=== PATIENT | male | born 1950 | race Caucasian/White ===

== ENCOUNTER → 2016-08-07 | Day surgery (SDC) | payer OTHER ==
[2016-08-06 10:47] VITALS: Ht 188 cm; Wt 97.7 kg
[~2016-08-07] VITALS: Ht 188 cm; Wt 97.7 kg
[~2016-08-07] MED LIST: 500ML BSS 0.3ML EPI 1:1000PF IRRIG ONE; ACETAMINOPHEN 325 MG TAB PO PRN; AMVISC PLUS 0.8ML SYRINGE INT OCU ONE; ATROPINE SULFATE 0.1 MG/ML 5ML SYR IV PRN; BROM0.07 OPR; BSS FLUSH ONE; CYCLOPENTOLATE HCL 1% OP SOLN PER DROP CHARGE OPR SCH; ENDOCOAT 0.85ML SYRINGE INT OCU ONE; EpHEDrine SULFATE INJ 50 MG/ML AMP IV PRN; EpINEphrine INJ 1MG/ML AMP 1 MG/ML AMP ONE; FENTANYL CITRATE INJ 50 MCG/1 ML 2 ML VIAL ONE; IBUP1CAP9 PO; LACTATED RINGER'S 1000ML 500 ML IV SCH; LIDOCAINE 4% OP SOLN DROP CHARGE ONE; LIDOCAINE 4% OP SOLN DROP CHARGE OPR SCH; LIDOCAINE HCL 1% MPF 2 ML VIAL ONE; LIPO PO; MIDAZOLAM HCL 1 MG/ML 2ML VIAL ONE; MIX: 4ML BSS 1ML EPI 1:1000 PF TOP ONE; MOXIFLOXACIN OPH SOLN PER DROP CHARGE ONE; MOXIFLOXACIN OPH SOLN PER DROP CHARGE OPR SCH; PATIENT'S ALLERGY INFO NEEDS ENTERED SCH; PHENYLEPHRINE HCL 2.5% OP SOLN PER DROP CHARGE OPR SCH; POVIDONE-IODINE OP SOLN 30 ML BTL ONE; PRED1SUS OPR; PROPARACAINE 0.5% OP SOLN PER DROP CHARGE OPR SCH; TOBRAMYCIN/DEXAMETHASONE OPH OINT PER APPLN CHARGE ONE; TROPICAMIDE 1% OP SOLN PER DROP CHARGE OPR SCH
[2016-08-07] MEDS: PHENYLEPHRINE HCL 2.5% OP SOLN PER DROP CHARGE OPR SCH ×3 (11:29→11:39)
[2016-08-07] MEDS: TROPICAMIDE 1% OP SOLN PER DROP CHARGE OPR SCH ×3 (11:30→11:40)
[2016-08-07] MEDS: CYCLOPENTOLATE HCL 1% OP SOLN PER DROP CHARGE OPR SCH ×3 (11:31→11:41)
[2016-08-07] MEDS: MOXIFLOXACIN OPH SOLN PER DROP CHARGE OPR SCH ×3 (11:32→11:42)
--- NOTE | 2016-08-07 11:57 | History & Physical Bridge - [place] ---
H&P Re-Evaluation Bridge Note: I have examined the patient, reviewed the History & Physical and in the interval since the performance of the History & Physical I have noted the following changes of clinical significance: No changes noted. Right eye cataract surgery.
--- NOTE | 2016-08-07 13:07 | [facility] Post Operative Brief Note ---
Immediate Operative Summary Operative Date August 07, 2016. Pre-Operative Diagnosis Cataract Right Eye Post-Operative Diagnosis Same Procedure(s) Performed Right Cataract Phacoemulsification With Intraocular Lens Implant Surgeon Dr. Camilo Shrimping Boat Captain Surgeon(s) None Estimated Blood Loss 0 Findings right cataract Specimens None Complication(s) None Disposition
[2016-08-07 13:08] VITALS: TEMP 36.6
--- NOTE | 2016-08-07 13:08 | [facility] Operative Report ---
Operative Report Date of Service August 07, 2016. Operative Report Phaco with monofocal IOL DATE OF OPERATION: 08/07/16 PREOPERATIVE DIAGNOSIS: Senile nuclear cataract, right eye POSTOPERATIVE DIAGNOSIS: Senile nuclear cataract, right eye PROCEDURE PERFORMED: Phacoemulsification with intraocular lens implantation, right eye SURGEON: Dr. Wilder Camilo ANESTHESIA: Topical with 1% intracameral lidocaine and monitored anesthesia care COMPLICATIONS: None DESCRIPTION OF PROCEDURE: After positively identifying the patient both verbally and by wristband in the preoperative area, the right eye was marked as the operative eye. The patient was then brought back to the operating room by the anesthesia and nursing staff where they were given a drop of Lidocaine and betadine into the operative eye. They were then sterilely prepped and draped in the standard fashion typical for ophthalmic surgery. Steri-strips were placed along the upper eyelids to keep the lashes back, and a lid speculum was placed into the operative eye. At this point, a documented time out was performed with members of the ophthalmology, nursing, and anesthesia staffs all agreeing upon the correct patient, correct location for surgery, correct procedure, and correct type and power of intraocular lens to be implanted. The microscope was then swung into position. First, a paracentesis wound was made using a sideport blade. Then, in sequence, 1% preservative-free lidocaine followed by Endocoat viscoelastic was injected into the anterior chamber. Next , the main incision was made with a keratome blade in triplanar fashion. A sharp cystotome was introduced into the eye and used to create a tear in the anterior capsule, which was directed into a continuous curvilinear capsulorrhexis using Utrata forceps. Hydrodissection was then performed with BSS on a flat-tip cannula. Next, the phacoemulsification handpiece was introduced into the eye and used to remove the nucleus in a [id number]-idb-[id number] fashion. This was done without complication and then the irrigation-aspiration handpiece was introduced into the eye and used to remove all remaining cortical and epinuclear material. Amvisc was then injected into the anterior chamber as well as into the capsular bag and using the lens injector system, an MX60 18.0 D lens, serial number [id number], and expiration date 01/2019 was injected into the capsular bag and rotated into the correct position. Next, the irrigation- aspiration handpiece was used to remove all remaining Amvisc. BSS was used to hydrate the main wound, and then BSS was injected into the paracentesis site to reach physiologic pressure and then the main wound was checked and found to be watertight. The patient was given drops of Vigamox and Tobradex ointment into the operative eye, and then the surrounding area was cleaned and dried. A clear plastic shield was placed over the eye and the patient was then sat up and taken from the operating room by the anesthesia staff having tolerated the procedure well and suffering no complications. DISPOSITION: The patient was returned to the recovery room in stable condition. I attest to the content of the Intraoperative Record and any orders documented therein. Any exceptions are noted below.
--- NOTE | 2016-08-07 13:09 | Discharge Instructions-SurgCtr ---
Discharge Instructions Date of Service August 07, 2016. Visit Reason for Visit: Right Cataract Discharge Discharge Diagnosis / Problem: right cataract Discharge Goals Goal(s): Decrease discomfort, Improve function Activity Recommendations Activity Limitations: as noted below Anesthesia . Post Anesthesia Instructions: If you have had General Anesthesia or IV Sedation: * Do not drive today. * Resume driving when surgeon permits. * Do not make important decisions or sign legal documents today. * Call surgeon for: 1. Temperature elevations greater than 101 degrees F. 2. Uncontrollable pain. 3. Excessive bleeding. 4. Persistent nausea and vomiting. 5. Medication intolerance (nausea, vomiting or rash). * For nausea and vomiting use only clear liquids such as: tea, soda, bouillon until nausea subsides, then gradually increase diet as tolerated. * If you have any concerns or questions, call your surgeon's office. If physician is unavailable and it is an emergency, call 911 or go to the nearest emergency room. . Instructions / Follow-Up Instructions / Follow-Up ACTIVITY RECOMMENDATIONS: * Light activities. * You may walk outside, read, watch television. * You may notice redness on the white part of the eye and some blurry vision - this is normal. MEDICATIONS: Resume previous medications unless instructed otherwise by your surgeon. Start all eye drops at 3 pm today: * Eye drops (today): Prednisone - one drop in operative eye every 2 hours while awake Ofloxacin - one drop in operative eye every 2 hours while awake Bromfenac - one drop in operative eye daily SPECIAL CARE INSTRUCTIONS: * Tape plastic shield over eye to sleep at night. Call your doctor at with any concerns or problems. FOLLOW UP VISIT: Follow-up with Dr Camilo at [place] office as scheduled. Diet Recommendations Home Diet: no limitations Procedures Procedures Performed: Right Cataract Phacoemulsification With Intraocular Lens Implant Pending Studies Studies pending at discharge: no Medical Emergencies . Who to Call and When: Medical Emergencies: If at any time you feel your situation is an emergency, please call 911 immediately. . Non-Emergent Contact Non-Emergency issues call your: Surgeon . . "Provider Documentation" section prepared by Wilder Camilo. .
[2016-08-07 13:35] VITALS: BP 138/81; PULSE 85; O2SAT 96
--- NOTE | 2016-08-07 13:44 | Anesthesia Progress Nt - [facility] ---
Anesthesia Post Op Note Date & Time August 07, 2016 at 13:44 Vital Signs Pain Intensity: 0 Vital Signs Past 12 Hours Date Time Temp Pulse Resp B/P Pulse Ox O2 Delivery O2 Flow Rate FiO2 08/07/16 13:08 36.6 78 16 143/94 97 Room Air 08/07/16 11:22 36.7 92 16 140/91 96 Room Air Notes Mental Status: alert / awake / arousable, participated in evaluation Pt Amnestic to Procedure: Yes Nausea / Vomiting: adequately controlled Pain: adequately controlled Airway Patency, RR, SpO2: stable & adequate BP & HR: stable & adequate Hydration State: stable & adequate Anesthetic Complications: no major complications apparent
== END | disposition home or self-care (01) ==
LOC: X.SURG 11:06
PROVIDERS: ATTEND Ophthalmology
DX: H25.11 Age-related nuclear cataract, right eye (principal)

== ENCOUNTER → 2016-09-04 | Day surgery (SDC) | payer OTHER ==
[2016-08-15 12:41] VITALS: Ht 188 cm; Wt 97.7 kg
[~2016-09-04] VITALS: Ht 188 cm; Wt 97.7 kg
[~2016-09-04] MED LIST changes: -CYCLOPENTOLATE HCL 1% OP SOLN PER DROP CHARGE OPR SCH; -FENTANYL CITRATE INJ 50 MCG/1 ML 2 ML VIAL ONE; +LIDOCAINE 4% OP SOLN DROP CHARGE OPL SCH; -LIDOCAINE 4% OP SOLN DROP CHARGE OPR SCH; -MOXIFLOXACIN OPH SOLN PER DROP CHARGE OPR SCH; +ONDANSETRON INJ 2 MG/ML 2 ML VIAL IV PRN; -PATIENT'S ALLERGY INFO NEEDS ENTERED SCH; -PHENYLEPHRINE HCL 2.5% OP SOLN PER DROP CHARGE OPR SCH; +PROPARACAINE 0.5% OP SOLN PER DROP CHARGE OPL SCH; -PROPARACAINE 0.5% OP SOLN PER DROP CHARGE OPR SCH; -TROPICAMIDE 1% OP SOLN PER DROP CHARGE OPR SCH
[2016-09-04] MEDS: PHENYLEPHRINE HCL 2.5% OP SOLN PER DROP CHARGE OPL SCH ×3 (07:25→07:35)
[2016-09-04] MEDS: TROPICAMIDE 1% OP SOLN PER DROP CHARGE OPL SCH ×3 (07:26→07:36)
[2016-09-04] MEDS: CYCLOPENTOLATE HCL 1% OP SOLN PER DROP CHARGE OPL SCH ×3 (07:27→07:37)
--- NOTE | 2016-09-04 07:27 | History & Physical Bridge - [place] ---
H&P Re-Evaluation Bridge Note: I have examined the patient, reviewed the History & Physical and in the interval since the performance of the History & Physical I have noted the following changes of clinical significance: No changes noted. Left eye cataract surgery.
[2016-09-04] MEDS: MOXIFLOXACIN OPH SOLN PER DROP CHARGE OPL SCH ×3 (07:28→07:38)
--- NOTE | 2016-09-04 08:37 | [facility] Post Operative Brief Note ---
Immediate Operative Summary Operative Date Sep 04, 2016. Pre-Operative Diagnosis catarct left eye Post-Operative Diagnosis same Procedure(s) Performed left cataract phacoemulsification with intraocular lens implant Surgeon Dr. Camilo Acid Concentrator Surgeon(s) none Estimated Blood Loss 0 Findings left cataract Specimens none Complication(s) None Disposition
[2016-09-04 08:38] VITALS: TEMP 36.4
--- NOTE | 2016-09-04 08:38 | [facility] Operative Report ---
Operative Report Date of Service Sep 04, 2016. Operative Report Phaco with monofocal IOL DATE OF OPERATION: 09/04/16 PREOPERATIVE DIAGNOSIS: Senile nuclear cataract, left eye POSTOPERATIVE DIAGNOSIS: Senile nuclear cataract, left eye PROCEDURE PERFORMED: Phacoemulsification with intraocular lens implantation, left eye SURGEON: Dr. Wilder Camilo ANESTHESIA: Topical with 1% intracameral lidocaine and monitored anesthesia care COMPLICATIONS: None DESCRIPTION OF PROCEDURE: After positively identifying the patient both verbally and by wristband in the preoperative area, the left eye was marked as the operative eye. The patient was then brought back to the operating room by the anesthesia and nursing staff where they were given a drop of Lidocaine and betadine into the operative eye. They were then sterilely prepped and draped in the standard fashion typical for ophthalmic surgery. Steri-strips were placed along the upper eyelids to keep the lashes back, and a lid speculum was placed into the operative eye. At this point, a documented time out was performed with members of the ophthalmology, nursing, and anesthesia staffs all agreeing upon the correct patient, correct location for surgery, correct procedure, and correct type and power of intraocular lens to be implanted. The microscope was then swung into position. First, a paracentesis wound was made using a sideport blade. Then, in sequence, 1% preservative-free lidocaine followed by Endocoat viscoelastic was injected into the anterior chamber. Next , the main incision was made with a keratome blade in triplanar fashion. A sharp cystotome was introduced into the eye and used to create a tear in the anterior capsule, which was directed into a continuous curvilinear capsulorrhexis using Utrata forceps. Hydrodissection was then performed with BSS on a flat-tip cannula. Next, the phacoemulsification handpiece was introduced into the eye and used to remove the nucleus in a [id number]-arc-rhbz fashion. This was done without complication and then the irrigation-aspiration handpiece was introduced into the eye and used to remove all remaining cortical and epinuclear material. Amvisc was then injected into the anterior chamber as well as into the capsular bag and using the lens injector system, an MX60 18.0 D lens, serial number [id number], and expiration date 02/2019 was injected into the capsular bag and rotated into the correct position. Next, the irrigation- aspiration handpiece was used to remove all remaining Amvisc. BSS was used to hydrate the main wound, and then BSS was injected into the paracentesis site to reach physiologic pressure and then the main wound was checked and found to be watertight. The patient was given drops of Vigamox and Tobradex ointment into the operative eye, and then the surrounding area was cleaned and dried. A clear plastic shield was placed over the eye and the patient was then sat up and taken from the operating room by the anesthesia staff having tolerated the procedure well and suffering no complications. DISPOSITION: The patient was returned to the recovery room in stable condition. I attest to the content of the Intraoperative Record and any orders documented therein. Any exceptions are noted below.
--- NOTE | 2016-09-04 08:39 | Discharge Instructions-SurgCtr ---
Discharge Instructions Date of Service Sep 04, 2016. Visit Reason for Visit: Cataract Left Eye Discharge Discharge Diagnosis / Problem: left cataract Discharge Goals Goal(s): Decrease discomfort, Improve function Activity Recommendations Activity Limitations: as noted below Anesthesia . Post Anesthesia Instructions: If you have had General Anesthesia or IV Sedation: * Do not drive today. * Resume driving when surgeon permits. * Do not make important decisions or sign legal documents today. * Call surgeon for: 1. Temperature elevations greater than 101 degrees F. 2. Uncontrollable pain. 3. Excessive bleeding. 4. Persistent nausea and vomiting. 5. Medication intolerance (nausea, vomiting or rash). * For nausea and vomiting use only clear liquids such as: tea, soda, bouillon until nausea subsides, then gradually increase diet as tolerated. * If you have any concerns or questions, call your surgeon's office. If physician is unavailable and it is an emergency, call 911 or go to the nearest emergency room. . Instructions / Follow-Up Instructions / Follow-Up ACTIVITY RECOMMENDATIONS: * Light activities. * You may walk outside, read, watch television. * You may notice redness on the white part of the eye and some blurry vision - this is normal. MEDICATIONS: Resume previous medications unless instructed otherwise by your surgeon. Start all eye drops at 10:30 am today: * Eye drops (today): Prednisone - one drop in operative eye every 2 hours while awake Ofloxacin - one drop in operative eye every 2 hours while awake Bromfenac - one drop in operative eye daily SPECIAL CARE INSTRUCTIONS: * Tape plastic shield over eye to sleep at night. Call your doctor at with any concerns or problems. FOLLOW UP VISIT: Follow-up with Dr Camilo at [facility] as scheduled. Diet Recommendations Home Diet: no limitations Procedures Procedures Performed: left cataract phacoemulsification with intraocular lens implant Pending Studies Studies pending at discharge: no Medical Emergencies . Who to Call and When: Medical Emergencies: If at any time you feel your situation is an emergency, please call 911 immediately. . Non-Emergent Contact Non-Emergency issues call your: Surgeon . . "Provider Documentation" section prepared by Wilder Camilo. .
--- NOTE | 2016-09-04 08:55 | Anesthesia Progress Nt - [facility] ---
Anesthesia Post Op Note Date & Time Sep 04, 2016 at 08:55 Vital Signs Pain Intensity: 0 Vital Signs Past 12 Hours Date Time Temp Pulse Resp B/P (MAP) Pulse Ox O2 Delivery O2 Flow Rate FiO2 09/04/16 08:38 36.4 77 16 107/73 (84) 95 Room Air 09/04/16 07:11 36.7 94 16 125/84 (98) 97 Room Air Notes Mental Status: alert / awake / arousable, participated in evaluation Pt Amnestic to Procedure: Yes Nausea / Vomiting: adequately controlled Pain: adequately controlled Airway Patency, RR, SpO2: stable & adequate BP & HR: stable & adequate Hydration State: stable & adequate Anesthetic Complications: no major complications apparent
[2016-09-04 08:59] VITALS: BP 111/75; PULSE 78; O2SAT 96
== END | disposition home or self-care (01) ==
LOC: X.SURG 06:53
PROVIDERS: ATTEND Ophthalmology
DX: H25.12 Age-related nuclear cataract, left eye (principal); K21.9 Gastro-esophageal reflux disease without esophagitis; G47.33 Obstructive sleep apnea (adult) (pediatric); Z68.27 Body mass index [BMI] 27.0-27.9, adult; Z98.42 Cataract extraction status, left eye; Z98.890 Other specified postprocedural states

== ENCOUNTER 2021-04-19 14:29 | Observation (INO) ==
--- NOTE | 2021-04-19 14:54 | Emergency Department Note ---
History of Present Illness General Chief complaint: Vomiting Stated complaint: DIZZINESS, NAUSEA, VOMITING Time Seen by Provider: 04/19/21 14:51 History of Present Illness This is a 70-year-old male that presents to the emergency department via EMS with complaints of "nausea, vomiting, dizziness". The patient notes that while at work he was not feeling well. He presented to "[facility]" and then EMS were summoned and he was brought here. He vomited 4 times at the [facility] and then once in the ambulance. Patient notes dizziness before the vomiting. No recent trauma or injury. No chest pain or shortness of breath. No recent illness. No fevers or chills. Patient denies any blood in the emesis. No alleviating or exacerbating factors. No recent surgeries. No recent antibiotic use. Patient has had this happen before but is unsure of the cause. Patient denies any speech trouble or weakness. Home Medications Medication Instructions Recorded Confirmed Type metformin 1,000 mg tablet 1,000 mg PO BID #60 tab 08/02/20 04/19/21 Rx multivitamin 1 tab PO QAM 12/28/20 04/19/21 History aspirin-acetaminophen (buffered) 1 tab PO DIRECTED PRN 04/19/21 04/19/21 History 250 mg-250 mg tablet Allergies Allergy/AdvReac Type Severity Reaction Status Date / Time No Known Allergies Allergy Unverified 04/19/21 17:06 Past Med/Surg History Medical History DM type 2 (diabetes mellitus, type 2) History of sleep apnea resolved after wt loss Slow to wake up after anesthesia Surgical History History of biopsy skin History of cataract surgery History of tooth extraction S/P correction of deviated nasal septum Social History Smoking Status: Never smoker Second Hand Exposure: Yes; Do You Dip or Chew Tobacco: No; Hx Alcohol Use: No Hx Substance Use: No Preferred Language: Greek Communication Ability: Effective Charging Plug 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 Required: No Beliefs That Will Affect Care: None Current Living Situation: Spouse Other Information That Helps Us Care for You: Yes Feels Safe at Home: Yes Safety Concerns: Feels Safe At This Time Assistive Devices: Denture - Upper and Glasses Review of Systems A total of 10 systems reviewed and were otherwise negative Physical Exam Vital Signs Vital Signs - 24 hr 04/19/21 14:33 04/19/21 14:36 04/19/21 15:00 Temperature 36.7 C Temperature Source Oral Pulse Rate 83 Pulse Rate [Apical] 83 Respiratory Rate 22 18 Respiratory Effort / Characteristics Non-Labored Spontaneous Non-Labored Spontaneous Respiratory Depth Normal Normal Blood Pressure 154/93 H Blood Pressure [Right Arm] 154/93 H Blood Pressure Mean 113 Blood Pressure Mean [Right Arm] 113 Pulse Oximetry 100 98 Oxygen Delivery Method Room Air Room Air Room Air Sepsis Recent Fever Within 48 Hours No Sepsis New/Unexplained Change in Mental Status No Sepsis Action Taken by Nursing No Action Required 04/19/21 16:30 04/19/21 17:00 Temperature Temperature Source Pulse Rate Pulse Rate [Apical] 76 86 Respiratory Rate 13 19 Respiratory Effort / Characteristics Non-Labored Spontaneous Non-Labored Spontaneous Respiratory Depth Normal Normal Blood Pressure Blood Pressure [Right Arm] 147/83 H 148/80 H Blood Pressure Mean Blood Pressure Mean [Right Arm] 104 102 Pulse Oximetry 99 100 Oxygen Delivery Method Room Air Room Air Sepsis Recent Fever Within 48 Hours Sepsis New/Unexplained Change in Mental Status Sepsis Action Taken by Nursing VITAL SIGNS - Vital signs and nursing notes were reviewed. Stable and afebrile. GENERAL - 70-year-old male appearing his stated age who is in no acute distress. Communicates well with provider and answers questions appropriately. SKIN - Without rashes. No meningeal or petechial rash. HEAD - NC/AT. EYES - PERRL with EOMI bilaterally. Sclera anicteric. EARS - No deformities of external structures noted on gross examination bilaterally. No pain elicited with palpation of the tragus bilaterally. External auditory canals without discharge or otorrhea. Tympanic membranes pearly mccarty without retraction or bulging. No fluid or purulent material visualized behind the TM. Handle of malleus, umbo, cone of light, pars tensa/flaccid all easily visualized. NOSE - Midline and without cyanosis. No epistaxis or purulent drainage noted. Septum midline without deviation or septal hematoma noted. MOUTH/OROPHARYNX - Without perioral cyanosis. Buccal mucosa pink and moist and without leukoplakia. Tongue midline with equal elevation of palate bilaterally. No tonsillar hypertrophy, erythema, or exudates noted. Good dentition noted. NECK - Neck with FROM. No nuchal rigidity. LUNGS - Chest wall symmetric without accessory muscle use, intercostals retractions, or central cyanosis. Normal vesicular breath sounds CTA B/L. No wheezes, rales, or rhonchi appreciated. CARDIAC - RRR with S1/S2. No murmur, rubs, or gallops appreciated. ABDOMEN - Abdominal contour normal without pulsations or visible masses. BS normoactive all four quadrants. No tenderness, palpable masses, hepatosplenom egaly, or ascites noted. EXTREMITIES - No clubbing or peripheral cyanosis. +5/5 strength noted in UE/LE bilaterally. NEUROLOGIC - Cranial nerves II through XII grossly intact. PSYCH - A&Ox3 and cooperates fully with examiner. Pt is very pleasant and interacts well with examiner. Course Administered Medications Sodium Chloride (Nss 1000ml) 1,000 mls @ 100 mls/hr IV .Q10H [id number] Stop: 05/19/21 20:31 Last Admin: 04/19/21 21:06 Dose: 100 mls/hr Documented by: [id number] Ondansetron HCl (Ondansetron Inj 2 Mg/Ml 2 Ml Vial) 4 mg IV Q6H PRN PRN Reason: Nausea Stop: 05/19/21 20:31 Last Admin: 04/19/21 21:08 Dose: 4 mg Documented by: [id number] Discontinued Medications Diazepam (Diazepam 5 Mg/Ml Inj 10ml Vial) 5 mg IV NOW STA Stop: 04/19/21 18:34 Last Admin: 04/19/21 19:04 Dose: 5 mg Documented by: [id number] Sodium Chloride (Nss 1000ml) 1,000 mls @ 500 mls/hr IV .Q2H ONE Stop: 04/19/21 17:12 Last Infusion: 04/19/21 19:41 Dose: 0 mls/hr Documented by: [id number] Admin: 04/19/21 15:31 Dose: 500 mls/hr Documented by: [id number] Lorazepam (Ativan) 1 mg in 2 mls @ 2 mls/min IV NOW STA Stop: 04/19/21 16:46 Last Admin: 04/19/21 17:19 Dose: 2 mls/min Documented by: [id number] Promethazine HCl 12.5 mg/ (Sodium Chloride) 50.5 mls @ 202 mls/hr IV NOW STA Stop: 04/19/21 18:17 Last Admin: 04/19/21 19:04 Dose: Not Given Documented by: [id number] Pantoprazole Sodium 40 mg/ (Syringe) 10 mls @ 5 mls/min IV NOW ONE Stop: 04/19/21 18:04 Last Admin: 04/19/21 19:43 Dose: 5 mls/min Documented by: [id number] Famotidine (Pepcid 20mg Iv Push) 20 mg in 5 mls @ 2.5 mls/min IV NOW STA Stop: 04/19/21 18:04 Last Admin: 04/19/21 18:58 Dose: 2.5 mls/min Documented by: [id number] Sodium Chloride (Nss 1000ml) 500 mls @ 999 mls/hr IV .Q31M ONE Stop: 04/19/21 18:39 Last Infusion: 04/19/21 19:41 Dose: 0 mls/hr Documented by: [id number] Admin: 04/19/21 19:02 Dose: 999 mls/hr Documented by: [id number] Ioversol (Optiray 320 125ml) 104 ml IV ONCE ONE Stop: 04/19/21 16:01 Last Admin: 04/19/21 16:01 Dose: 104 ml Documented by: [id number] Methylprednisolone (Methylprednisolone 40 Mg/Ml Vial) 40 mg IV NOW STA Stop: 04/19/21 16:46 Last Admin: 04/19/21 17:19 Dose: 40 mg Documented by: [id number] Ondansetron HCl (Ondansetron Inj 2 Mg/Ml 2 Ml Vial) 4 mg IV NOW STA Stop: 04/19/21 15:14 Last Admin: 04/19/21 15:31 Dose: 4 mg Documented by: [id number] Ondansetron HCl (Ondansetron Inj 2 Mg/Ml 2 Ml Vial) 4 mg IV NOW STA Stop: 04/19/21 18:06 Last Admin: 04/19/21 19:02 Dose: 4 mg Documented by: [id number] Medical Decision Making Laboratory Data Result diagrams: 04/19/21 14:44 04/19/21 14:44 Lab Results 04/19/21 04/19/21 04/19/21 Range/Units 14:44 14:44 14:44 WBC 7.56 (4.8-10.8) K/uL RBC 4.65 L (4.7-6.1) M/uL Hgb 13.6 L (14.0-18.0) g/dL Hct 39.6 L (42-52) % MCV 85.2 (80-100) fL MCH 29.2 (25-34) pg MCHC 34.3 (32-36) g/dL RDW Std Deviation 39.0 (36.4-46.3) fL RDW Coeff of Yareli 12.6 (11.5-14.5) % Plt Count 262 (130-400) K/uL MPV 9.6 (7.4-10.4) fL Immature Gran % (Auto) 0.1 % Neut % (Auto) 75.8 % Lymph % (Auto) 12.8 % Terrell % (Auto) 9.1 % Eos % (Auto) 1.5 % Baso % (Auto) 0.7 % Neut # (Auto) 5.73 (1.4-6.5) K/uL Lymph # (Auto) 0.97 L (1.2-3.4) K/uL Terrell # (Auto) 0.69 H (0.11-0.59) K/uL Eos # (Auto) 0.11 (0-0.5) K/uL Baso # (Auto) 0.05 (0-0.2) K/uL Immature Gran # (Auto) 0.01 (0.00-0.02) K/uL PT 9.8 (9.0-12.0) Seconds INR 1.0 (0.9-1.1) APTT 26.5 (21.0-31.0) Seconds PTT Ratio 1.0 Sodium 138 (136-145) mmol/L Potassium 3.9 (3.5-5.1) mmol/L Chloride 103 (98-107) mmol/L Carbon Dioxide 25 (21-32) mmol/L Anion Gap 10 (3-11) BUN 21 (6-23) mg/dl Creatinine 0.99 (0.6-1.4) mg/dl Est Cr Clr Drug Dosing 78.4 ml/min Est GFR ( Amer) 90.3 ml/min Est GFR (Non-Af Amer) 77.9 ml/min BUN/Creatinine Ratio 21.2 H (10-20) Glucose 170 H (70-99(Fasting)) mg/dl Calcium 9.8 (8.5-10.1) mg/dl Magnesium 1.9 (1.7-2.4) mg/dl Total Bilirubin 0.5 (0.2-1.0) mg/dl AST 13 (13-39) U/L ALT 11 (7-52) U/L Alkaline Phosphatase 80 (34-104) U/L Troponin I < 0.03 (0-0.04) ng/ml Total Protein 7.7 (6.0-8.3) gm/dl Albumin 4.3 (3.4-5.0) gm/dl Globulin 3.4 (2.5-4.0) gm/dl Albumin/Globulin Ratio 1.3 (0.9-2) Lipase 34 (11-82) U/L TSH (0.300-4.500) uIu/ml Urine Color Urine Appearance (Clear) Urine pH (4.5-7.5) Ur Specific Semin[place] (1.000-1.030) Urine Protein (Negative) Urine Glucose (UA) (Negative) Urine Ketones (Negative) Urine Blood (Negative) Urine Nitrite (Negative) Urine Bilirubin (Negative) Urine Urobilinogen (Negative) Ur Leukocyte Esterase (Negative) SARS-CoV-2, RNA, NAAT (NEGATIVE) 04/19/21 04/19/21 04/19/21 Range/Units 14:44 15:43 15:43 WBC (4.8-10.8) K/uL RBC (4.7-6.1) M/uL Hgb (14.0-18.0) g/dL Hct (42-52) % MCV (80-100) fL MCH (25-34) pg MCHC (32-36) g/dL RDW Std Deviation (36.4-46.3) fL RDW Coeff of Yareli (11.5-14.5) % Plt Count (130-400) K/uL MPV (7.4-10.4) fL Immature Gran % (Auto) % Neut % (Auto) % Lymph % (Auto) % Terrell % (Auto) % Eos % (Auto) % Baso % (Auto) % Neut # (Auto) (1.4-6.5) K/uL Lymph # (Auto) (1.2-3.4) K/uL Terrell # (Auto) (0.11-0.59) K/uL Eos # (Auto) (0-0.5) K/uL Baso # (Auto) (0-0.2) K/uL Immature Gran # (Auto) (0.00-0.02) K/uL PT (9.0-12.0) Seconds INR (0.9-1.1) APTT (21.0-31.0) Seconds PTT Ratio Sodium (136-145) mmol/L Potassium (3.5-5.1) mmol/L Chloride (98-107) mmol/L Carbon Dioxide (21-32) mmol/L Anion Gap (3-11) BUN (6-23) mg/dl Creatinine (0.6-1.4) mg/dl Est Cr Clr Drug Dosing ml/min Est GFR ( Amer) ml/min Est GFR (Non-Af Amer) ml/min BUN/Creatinine Ratio (10-20) Glucose (70-99(Fasting)) mg/dl Calcium (8.5-10.1) mg/dl Magnesium (1.7-2.4) mg/dl Total Bilirubin (0.2-1.0) mg/dl AST (13-39) U/L ALT (7-52) U/L Alkaline Phosphatase (34-104) U/L Troponin I (0-0.04) ng/ml Total Protein (6.0-8.3) gm/dl Albumin (3.4-5.0) gm/dl Globulin (2.5-4.0) gm/dl Albumin/Globulin Ratio (0.9-2) Lipase (11-82) U/L TSH 0.635 (0.300-4.500) uIu/ml Urine Color Dark Yellow Urine Appearance Clear (Clear) Urine pH 7.0 (4.5-7.5) Ur Specific [place] 1.026 (1.000-1.030) Urine Protein Negative (Negative) Urine Glucose (UA) Trace H (Negative) Urine Ketones 1+ H (Negative) Urine Blood Negative (Negative) Urine Nitrite Negative (Negative) Urine Bilirubin Negative (Negative) Urine Urobilinogen Negative (Negative) Ur Leukocyte Esterase Negative (Negative) SARS-CoV-2, RNA, NAAT NEGATIVE (NEGATIVE) Imaging Data Radiologist's Impression: Head CTA 04/19/21 15:05 CT angio neck with con, CT angio head wo/w CLINICAL HISTORY: 70 years-old Male with dizziness, nausea, emesis. Acute dizziness with nausea COMPARISON STUDY: None TECHNIQUE: Following the IV administration of 104 of Optiray, CT angiogram of the head and neck was performed from the aortic arch to the skull base. Noncontrast head CT also obtained. Images are reviewed in the axial, sagittal, and coronal planes. 3-D MIPS images are created and assessed. IV contrast was administered without complication. All measurements were calculated based on NASCET criteria. A dose lowering technique was utilized adhering to the principles of ALARA. CT DOSE: 1193.46 mGy.cm FINDINGS: CT HEAD: No acute intracranial hemorrhage, midline shift, abnormal extra axial collection, hydrocephalus or intracranial mass. Minimal involutional changes. Hypodense foci of the inferior lateral nuclei bilaterally measuring up to 11 mm in left are suggestive of prominent perivascular spaces versus chronic lacunar infarct. There is ill-defined decreased attenuation of the left external capsule is seen on image 15 series 2. The mccarty-white interface appears preserved. Slightly decreased attenuation of the right kylie is favored to be artifactual. No acute calvarial fracture. The mastoid air cells and middle ear cavities are clear. Mild mucosal thickening of the ethmoid sinuses. Soft tissues are unremarkable. Prior bilateral lens repair. CTA: Mild atherosclerosis of the thoracic aortic arch. Patency of the innominate and imaged subclavian arteries. Mild calcified plaque of the right carotid bulb without sniffing stenosis. The common and internal carotid arteries are patent. The middle and anterior cerebral arteries are patent. Codominant and patent vertebral arteries. The basilar and posterior cerebral arteries are patent. There is no aneurysm, dissection, high-grade stenosis or arterial occlusion identified. The cerebral venous sinuses appear patent. No abnormal intracranial enhancement. The lung apices are clear without pneumothorax. Partially calcified 1.1 cm left thyroid nodule. Unremarkable soft tissues. Degenerative changes of the spine. IMPRESSION: 1. No acute intracranial hemorrhage, midline shift or acute territorial infarct. 2. Ill-defined decreased attenuation involves the left external capsule which may be secondary to chronic microvascular ischemic disease. An age-indeterminate infarct within this distribution is considered less likely. 3. Unremarkable CTA of the head and neck. ACT 112: Negative or not required by law. The above report was generated using voice recognition software. It may contain grammatical, syntax or spelling errors. Electronically signed by: Todd Estrella M.D. 04/19/2021 4:22 PM Neck CTA 04/19/21 15:05 CT angio neck with con, CT angio head wo/w CLINICAL HISTORY: 70 years-old Male with dizziness, nausea, emesis. Acute dizziness with nausea COMPARISON STUDY: None TECHNIQUE: Following the IV administration of 104 of Optiray, CT angiogram of the head and neck was performed from the aortic arch to the skull base. Noncontrast head CT also obtained. Images are reviewed in the axial, sagittal, and coronal planes. 3-D MIPS images are created and assessed. IV contrast was administered without complication. All measurements were calculated based on NASCET criteria. A dose lowering technique was utilized adhering to the principles of ALARA. CT DOSE: 1193.46 mGy.cm FINDINGS: CT HEAD: No acute intracranial hemorrhage, midline shift, abnormal extra axial collection, hydrocephalus or intracranial mass. Minimal involutional changes. Hypodense foci of the inferior lateral nuclei bilaterally measuring up to 11 mm in left are suggestive of prominent perivascular spaces versus chronic lacunar infarct. There is ill-defined decreased attenuation of the left external capsule is seen on image 15 series 2. The mccarty-white interface appears preserved. Slightly decreased attenuation of the right kylie is favored to be artifactual. No acute calvarial fracture. The mastoid air cells and middle ear cavities are clear. Mild mucosal thickening of the ethmoid sinuses. Soft tissues are unremarkable. Prior bilateral lens repair. CTA: Mild atherosclerosis of the thoracic aortic arch. Patency of the innominate and imaged subclavian arteries. Mild calcified plaque of the right carotid bulb without sniffing stenosis. The common and internal carotid arteries are patent. The middle and anterior cerebral arteries are patent. Codominant and patent vertebral arteries. The basilar and posterior cerebral arteries are patent. There is no aneurysm, dissection, high-grade stenosis or arterial occlusion identified. The cerebral venous sinuses appear patent. No abnormal intracranial enhancement. The lung apices are clear without pneumothorax. Partially calcified 1.1 cm left thyroid nodule. Unremarkable soft tissues. Degenerative changes of the spine. IMPRESSION: 1. No acute intracranial hemorrhage, midline shift or acute territorial infarct. 2. Ill-defined decreased attenuation involves the left external capsule which may be secondary to chronic microvascular ischemic disease. An age-indeterminate infarct within this distribution is considered less likely. 3. Unremarkable CTA of the head and neck. ACT 112: Negative or not required by law. The above report was generated using voice recognition software. It may contain grammatical, syntax or spelling errors. Electronically signed by: Todd Estrella M.D. 04/19/2021 4:22 PM Chest X-Ray 04/19/21 15:14 SINGLE VIEW CHEST CLINICAL HISTORY: Dizziness. Nausea FINDINGS: An AP, portable, upright chest radiograph is compared to study dated 07/13/2019. The cardiomediastinal silhouette is unremarkable. There is bibasilar scarring/atelectasis. The lungs and pleural spaces are otherwise clear. No pneumothorax is seen. The bony thorax is grossly intact. IMPRESSION: No acute cardiopulmonary abnormality. ACT 112: Negative or not required by law. Electronically signed by: Raoul Andrade M.D. 04/19/2021 3:25 PM MDM Narrative Patient was seen and evaluated as above in room C03. Review was performed of nursing notes and vital signs. I did review pertinent previous visits and patient history. After obtaining a thorough history and physical examination the above work up was performed. Patient presents to us today with nausea, vomiting and dizziness. Patient vomited in route to the hospital here today. He is nontoxic on examination. Vital signs stable. Options of care were discussed with the patient. IV access was established. Labs were drawn. Patient was medicated with IV fluids and IV Zofran. No relief with this. He was then ordered IV Ativan, and IV site Medrol. He was reevaluated without any relief of this. Patient's vertiginous symptoms appear to be positional in regard to his head. He does not have any abdominal pain. He has a benign abdominal exam. He has had CT scans of the abdomen here previously. Chest x-ray was obtained here as well CTA head/neck. Chest x-ray negative. CTA of the head/neck did not reveal any acute intracranial hemorrhage midline shift or acute infarct. There is an ill-defined region involving the left external capsule which may be secondary to chronic microvascular ischemic disease. An age-indeterminate infarct within this distribution is considered less likely. With the patient having persistent vertigo, nausea I do believe that further evaluation and management the inpatient setting is warranted. Patient's labs here reveal no leukocytosis or concerning anemia. Mild anemia noted at 13.6 in regard to hemoglobin. No emergent metabolic disturbance. Hyperglycemia 170. Troponin negative. TSH reveals euthyroid state. Lipase normal. Urinalysis does not suggest infection. Covid testing negative. EKG was obtained and reveals normal sinus rhythm at a rate of 80 bpm. QTc 456. QRS 88. No ST elevation. Case discussed with the hospitalist. Patient amenable to plan of care. Please refer to further documentation regarding his stay. Case was discussed with the attending physician. An order was placed for continuous cardiac monitoring. The monitor shows a rate of 79 with sinus rhythm. GCS: 15 In the evaluation and treatment of this patient, the following differential diagnoses were considered: Migraine Headache, Intracranial Hemorrhage, Subdural Hematoma, Subarachnoid Hemorrhage, Cerebral Aneurysm, Temporal/Giant Cell Arteritis, Tension Headache, Meningitis, Encephalitis, hydrocephalus, CVA, TIA, vertigo, among others. Impression & Plan Nausea and vomiting, Vertigo, Abnormal CT scan, head Discharge Plan Visit Data Chief Complaint: Vomiting Stated Complaint: DIZZINESS, NAUSEA, VOMITING ED Provider: Lyla Hendrickson ED Midlevel Provider: Steve Goodrich Discharge Problem: Nausea and vomiting, Vertigo, Abnormal CT scan, head Patient Disposition: Admitted As Inpatient Condition: Good Discharge Instructions Interventions: ED Discharge Assessment Last Done: 04/19/21 20:11
[2021-04-19] MEDS ORDERED: SODIUM CHLORIDE 0.9% 1000ML 1,000 ML IV ONE (15:13)
[2021-04-19] MEDS ORDERED: ONDANSETRON INJ 2 MG/ML 2 ML VIAL IV STA ×2 (15:13→18:05)
[2021-04-19 15:20] LABS: Basophils # (auto) 0.05 K/uL (0-0.2); Basophils % (auto) 0.7 %; Eosinophils # (auto) 0.11 K/uL (0-0.5); Eosinophils % (auto) 1.5 %; Hematocrit (blood only) 39.6 % (42-52); Hemoglobin 13.6 g/dL (14.0-18.0); Immature Granulocytes # (auto) 0.01 K/uL (0.00-0.02); Immature Granulocytes % (auto) 0.1 %; Lymphocytes # (auto) 0.97 K/uL (1.2-3.4); Lymphocytes % (auto) 12.8 %; Mean Corpuscular Hemoglobin 29.2 pg (25-34); Mean Corpuscular Hgb Conc 34.3 g/dL (32-36); Mean Corpuscular Volume 85.2 fL (80-100); Mean Platelet Volume 9.6 fL (7.4-10.4); Monocytes # (auto) 0.69 K/uL (0.11-0.59); Monocytes % (auto) 9.1 %; Neutrophils # (auto) 5.73 K/uL (1.4-6.5); Neutrophils % (auto) 75.8 %; Platelet Count 262 K/uL (130-400); RDW Coefficient of Variation 12.6 % (11.5-14.5); Red Blood Count 4.65 M/uL (4.7-6.1); White Blood Count 7.56 K/uL (4.8-10.8)
--- NOTE | 2021-04-19 15:26 | XRay Report ---
SINGLE VIEW CHEST CLINICAL HISTORY: Dizziness. Nausea FINDINGS: An AP, portable, upright chest radiograph is compared to study dated 07/13/2019. The cardiom ediastinal silhouette is unremarkable. There is bibasilar scarring/atelectasis. The lungs and pleural spaces are otherwise clear. No pneumothorax is seen. The bony thorax is grossly intact. IMPRESSION: No acute cardiopulmonary abnormality. ACT 112: Negative or not required by law. Electronically signed by: Raoul Andrade M.D. 04/19/2021 3:25 PM
[2021-04-19 15:29] LABS: Partial Thromboplastin Time 26.5 Seconds (21.0-31.0); Prothrombin Time 9.8 Seconds (9.0-12.0)
[2021-04-19 15:42] LABS: Alanine Aminotransferase 11 U/L (7-52); Albumin Globulin Ratio 1.3 (0.9-2); Albumin Level 4.3 gm/dl (3.4-5.0); Alkaline Phosphatase 80 U/L (34-104); Anion Gap 10 (3-11); Aspartate Aminotransferase 13 U/L (13-39); BUN Creatinine Ratio 21.2 (10-20); Bilirubin,Total 0.5 mg/dl (0.2-1.0); Blood Urea Nitrogen 21 mg/dl (6-23); Calcium 9.8 mg/dl (8.5-10.1); Carbon Dioxide 25 mmol/L (21-32); Chloride 103 mmol/L (98-107); Creatinine Clr Calc Pharmacy 78.4 ml/min; Est GFR (African American) 90.3 ml/min; Est GFR (Non-African American) 77.9 ml/min; Globulin 3.4 gm/dl (2.5-4.0); Glucose 170 mg/dl (70-99(Fasting)); Lipase 34 U/L (11-82); Magnesium 1.9 mg/dl (1.7-2.4); Potassium 3.9 mmol/L (3.5-5.1); Sodium 138 mmol/L (136-145); Total Protein 7.7 gm/dl (6.0-8.3)
[2021-04-19 15:44] LABS: Troponin I < 0.03 ng/ml (0-0.04)
[2021-04-19 15:55] LABS: Appearance Urine Clear (Clear); Bilirubin Urine Negative (Negative); Blood Urine Negative (Negative); Color Urine Dark Yellow; Glucose Urine UA Trace (Negative); Ketones Urine 1+ (Negative); Leukocyte Esterase Urine Negative (Negative); Nitrite Urine Negative (Negative); Protein Urine Negative (Negative); Specific Gravity Urine 1.026 (1.000-1.030); Urobilinogen Urine Negative (Negative)
[2021-04-19] MEDS ORDERED: OPTIRAY 320 125ml IV ONE (16:00)
--- NOTE | 2021-04-19 16:24 | CT Scan Report ---
CT angio neck with con, CT angio head wo/w CLINICAL HISTORY: 70 years-old Male with dizziness, nausea, emesis. Acute dizziness with nausea COMPARISON STUDY: None TECHNIQUE: Following the IV administration of 104 of Optiray, CT angiogram of the head and neck was p erformed from the aortic arch to the skull base. Noncontrast head CT also obtained. Images are review ed in the axial, sagittal, and coronal planes. 3-D MIPS images are created and assessed. IV contrast was administered without complication. All measurements were calculated based on NASCET criteria. A dose lowering technique was utilized adhering to the principles of ALARA. CT DOSE: 1193.46 mGy.cm FINDINGS: CT HEAD: No acute intracranial hemorrhage, midline shift, abnormal extra axial collection, hydrocephalus or in tracranial mass. Minimal involutional changes. Hypodense foci of the inferior lateral nuclei bilatera lly measuring up to 11 mm in left are suggestive of prominent perivascular spaces versus chronic lacu nancie infarct. There is ill-defined decreased attenuation of the left external capsule is seen on image 15 series 2. The mccarty-white interface appears preserved. Slightly decreased attenuation of the right kylie is favored to be artifactual. No acute calvarial fracture. The mastoid air cells and middle ear cavities are clear. Mild mucosal thickening of the ethmoid sinuses. Soft tissues are unremarkable. P rior bilateral lens repair. CTA: Mild atherosclerosis of the thoracic aortic arch. Patency of the innominate and imaged subclavian art eries. Mild calcified plaque of the right carotid bulb without sniffing stenosis. The common and inte rnal carotid arteries are patent. The middle and anterior cerebral arteries are patent. Codominant an d patent vertebral arteries. The basilar and posterior cerebral arteries are patent. There is no aneu rysm, dissection, high-grade stenosis or arterial occlusion identified. The cerebral venous sinuses a ppear patent. No abnormal intracranial enhancement. The lung apices are clear without pneumothorax. Partially calcified 1.1 cm left thyroid nodule. Unrem arkable soft tissues. Degenerative changes of the spine. IMPRESSION: 1. No acute intracranial hemorrhage, midline shift or acute territorial infarct. 2. Ill-defined decreased attenuation involves the left external capsule which may be secondary to chr onic microvascular ischemic disease. An age-indeterminate infarct within this distribution is conside red less likely. 3. Unremarkable CTA of the head and neck. ACT 112: Negative or not required by law. The above report was generated using voice recognition software. It may contain grammatical, syntax o r spelling errors. Electronically signed by: Todd Estrella M.D. 04/19/2021 4:22 PM
[2021-04-19] MEDS ORDERED: LORazepam 1 MG/2 ML VIAL IV STA (16:45)
[2021-04-19] MEDS ORDERED: FAMOTIDINE 20MG IV PUSH 20 MG/5 ML SYR IV STA (18:03)
[2021-04-19] MEDS ORDERED: PANTOprazole 40 MG in SYRINGE 0 ML IV ONE (18:03)
[2021-04-19] MEDS ORDERED: PROMETHAZINE HCL 12.5 MG in SODIUM CHLORIDE 0.9% 50 ML IV STA (18:03)
[2021-04-19] MEDS ORDERED: SODIUM CHLORIDE 0.9% 1000ML 500 ML IV ONE (18:09)
--- NOTE | 2021-04-19 18:47 | History & Physical Report ---
Date of Service April 19, 2021 Assessment & Plan (1) Vertigo: Plan: 70 yo M Hx DM2, BPH admitted for intractable nausea and vomiting with vertigo. Presented with nausea and vomiting, vertiginous symptoms that did not resolve with several IV antiemetics. Possible multifactorial problem with gastritis (has had increased reflux the last several days and takes Excedrin at home) and positional vertigo (worsened with movement on my exam). Received NSS in ER; will continue NSS at 100cc/hr with NPO at this time given ongoing symptoms. CTA Head/Neck in ER showed no acute pathology, however area possibly concerning for chronic lacunar infarct. Given tinnitus, vertigo, vomiting, ordered MRI Brain with care to internal auditory canal. Did give diazepam 5mg IV x1 for vertiginous symptoms. Zofran 8mg IV q6h as needed for nausea. Famotidine and PPI given; continue famotidine BID. DM2: Metformin held in favor of sliding scale insulin given NPO status. Adjust and add basal based on q6h BSGs. Code Status: FULL CODE FEN: NPO, NSS at 100cc/hr DVT ppx: SCDs, ambulate on demand Dispo: med/surg (2) Nausea and vomiting: (3) Gastritis: (4) Diabetes: (5) Abnormal CT scan, head: Admission and Anticipated Discharge Date Admission Date: I personally saw and examined the patient. I verified all prabhakar points and agree with resident physician Dr Lulu Dickerson with the following exceptions and/or additions: 70 year old male with intractable nausea and vomiting. No abdominal pain, dysphagia, odynophagia. He does not describe room spinning but reports feeling like he needs to hold his head still. Reports multiple similar episodes some of which have required ER visits. 10-12 years of significant tinnitus. No change in speech, extremity weakness of change in sensation. O/E - no unilateral focal neurology. PERRL. No nystagmus. Velva-Halpike not attempted due to significant nausea and vomiting at the time of admission. A/P Vertigo - Meniere's vs. BPPV. Advised to give 5mg IV diazepam now. MRI brain with IAC to further investigate ill defined decreased attenuation area seen on CT and chronic tinnitus with now vertigo. History of Present Illness Chief Complaint: nausea, vomiting, dizziness Primary Care Provider: Trinity Dinero MD 70 yo M Hx DM2, BPH presented to the ER for nausea and vomiting with associated dizziness and unsteadiness on his feet. His vitals were noted to be normal in the ER. He has been evaluated for similar symptoms in the past without findings on CTAP (most recently in 12/2020). He had CTA Head/Neck to evaluate for CVA which showed nondescript ocean import representative of prominent vascular spaces vs. chronic lacunar infarct. He received Zofran, lorazepam, and IV steroids without much improvement in his nausea and vomiting, and hospitalist service was consulted for observation. On my interview patient is still nauseated. He is unsure if food has made it worse in the past, but he has not had anything to eat today. He had pizza for dinner last night, which he also ate and she is asymptomatic. He also had [employer] snack wraps yesterday which his did not have. He has not noticed if movement makes the symptoms worse, but keeping his eyes closed does seem to help somewhat. He denies associated abdominal pain, diarrhea, fevers, URI symptoms, UTI symptoms. He did endorse tinnitus for several years, but no decreased hearing. Allergies Allergy/AdvReac Type Severity Reaction Status Date / Time No Known Allergies Allergy Unverified 04/19/21 17:06 Home Medications Medication Instructions Recorded Confirmed Type metformin 1,000 mg tablet 1,000 mg PO BID #60 tab 08/02/20 04/19/21 Rx multivitamin 1 tab PO QAM 12/28/20 04/19/21 History aspirin-acetaminophen (buffered) 1 tab PO DIRECTED PRN 04/19/21 04/19/21 History 250 mg-250 mg tablet meclizine 25 mg tablet 25 mg PO TID #30 tab 04/22/21 Rx ondansetron 4 mg disintegrating 4 mg PO TID PRN #30 tab 04/22/21 Rx tablet triamterene 37.5 1 cap PO QAM #30 cap 04/22/21 Rx mg-hydrochlorothiazide 25 mg capsule Past Med/Surg History Medical History DM type 2 (diabetes mellitus, type 2) History of sleep apnea resolved after wt loss Slow to wake up after anesthesia Surgical History History of biopsy skin History of cataract surgery History of tooth extraction S/P correction of deviated nasal septum Family History Mother , age 94 Primary cancer of orbit Father , age 62 of lung cancer Lung cancer Social History Smoking Status: Never smoker Second Hand Exposure: Yes; Hx Alcohol Use: No Hx Substance Use: No Preferred Language: Vietnamese Communication Ability: Effective Presales Senior Specialist Required: No Beliefs That Will Affect Care: None Current Living Situation: Spouse current occupational status: employed 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 Feels Safe at Home: Yes Assistive Devices: None Review of Systems Review of Systems: All systems reviewed & are unremarkable except as noted in HPI & below Constitutional: + malaise; no fever and no chills Respiratory: no cough and no dyspnea Cardiovascular: no chest pain, no palpitations and no edema Gastrointestinal: + nausea; no abdominal pain, no constipation and no diarrhea/loose stools Physical Exam Constitutional: WD/WN, vitals as above Eyes: PERRL, conjunctivae normal, anicteric sclerae ENMT: external ear and nose normal, oropharynx normal Noted to become more nauseated when head quickly turned to the right Neck: normal visual inspection Respiratory: normal respiratory effort, lungs clear to auscultation Cardiovascular: RRR, no murmur, no edema Gastrointestinal (Abdomen): normal bowel sounds, soft, nontender, no hepatosplenomegaly Musculoskeletal: no cyanosis or clubbing, extremities motor strength 5/5 Skin: no rashes, warm and dry Neurologic: Normal speech. No focal sensory deficits of bilateral face, upper or lower extremities. Hearing grossly intact. Psychiatric: A+Ox3, euthymic affect Results & Data Results & Data ([facility]) Vital Signs (Past 12 Hours) Vital Signs Temp Pulse Pulse Resp BP BP Pulse Ox 04/19/21 17:00 86 19 148/80 H 100 04/19/21 16:30 76 13 147/83 H 99 04/19/21 14:36 36.7 C 83 18 154/93 H 98 04/19/21 14:33 83 22 154/93 H 100 Resident Activity Tracking Resident Involvement: Resident Care Provided Care Provided: Adult [facility]
[2021-04-19] MEDS: SODIUM CHLORIDE 0.9% 1000ML 1,000 ML IV SCH (21:06)
[2021-04-19] MEDS: ONDANSETRON INJ 2 MG/ML 2 ML VIAL IV PRN (21:08)
[2021-04-19] MEDS ORDERED: PNEUMOCOCCAL POLYSACCHARIDES 25 MCG/0.5 ML VIAL/SYR IM ONE (23:47)
--- NOTE | 2021-04-20 07:16 | Electrocardiogram Report ---
Test Reason : Blood Pressure : / mmHG Vent. Rate : 080 BPM Atrial Rate : 080 BPM P-R Int : 162 ms QRS Dur : 088 ms QT Int : 396 ms P-R-T Axes : 047 049 058 degrees QTc Int : 456 ms Normal sinus rhythm Normal ECG When compared with ECG of 14-FEB-2021 00:14, Vent. rate has decreased BY 56 BPM Confirmed by Elie Glover ([id number]) on 04/20/2021 7:16:14 AM Referred By: REFERRED SELF Confirmed By:lEie Glover
[2021-04-20] MEDS: SODIUM CHLORIDE 0.9% 1000ML 1,000 ML IV SCH (07:40)
[2021-04-20] MEDS: ONDANSETRON INJ 2 MG/ML 2 ML VIAL IV PRN (08:05)
[2021-04-20] MEDS ORDERED: GADOBUTROL 65ML VIAL IV ONE (09:47)
[2021-04-20] MEDS: FAMOTIDINE 20 MG in SYRINGE 3 ML IV SCH ×2 (10:23→20:22)
--- NOTE | 2021-04-20 10:39 | Magnetic Resonance Report ---
Brain and internal auditory canal MRI WITH AND WITHOUT CONTRAST HISTORY: tinnitus, vertigo TECHNIQUE: Multiplanar multisequence MRI of the brain and bilateral internal auditory canals were per formed both before and after the intravenous administration of contrast. COMPARISON STUDY: Head and neck CTA 04/19/2021. FINDINGS: There are no areas of restricted diffusion to suggest acute infarction. The midline structu res are intact. The paranasal sinuses are clear. The mastoid air cells are clear. The ventricles and sulci are within normal limits for age. There is no mass, hematoma, midline shift. The major vascular flow-voids at the skull base are well maintained. Postcontrast sequences show no areas of abnormal e nhancement. Mild mucosal thickening within the left maxillary sinus. Evidence for bilateral lens repl acement. Mild increased T2 signal within the periventricular white matter is nonspecific but favors a ge-appropriate microvascular ischemic changes. No masses or abnormal enhancement within the bilateral internal auditory canals. The 7th and 8th cran ial nerves are normal in course and caliber. IMPRESSION: 1. No acute intracranial abnormality. 2. Normal bilateral internal auditory canals. ACT 112: Negative or not required by law. Electronically signed by: Quintin Muro M.D. 04/20/2021 10:38 AM
[2021-04-20] MEDS: LACTATED RINGER'S 1,000 ML IV SCH ×2 (16:14→23:58)
[2021-04-20] MEDS: SUCRALFATE 1 GM/10 ML UDC PO SCH ×2 (16:18→20:22)
[2021-04-20] MEDS: ONDANSETRON INJ 2 MG/ML 2 ML VIAL IV SCH ×2 (16:18→22:46)
--- NOTE | 2021-04-20 19:32 | Hospitalist Progress Note ---
Date of Service April 20, 2021 Assessment & Plan (1) Dizziness: Plan: Still not entirely clear if we are dealing with a lightheadedness or vertigo, on admission it was more consistent with vertigo to the admitting physician, now revisiting the history it seems a little bit more of a lightheaded. Etiology not entirely clear. -If vertigo, does not seem to have positional reproducible symptoms consistent with BPPV, nor constant symptoms consistent with labyrinthitis. MRI of his inner ear was fairly benign. Doesn't really seem to fit with basilar insufficiency, and he does not have significant basilar stenosis on CT angio -If more of a lightheadedness, he does not really show MELISSA/hypotension/profound dehydration clinically or lab wright. Check echo to look for any occult changes in EF or valvulopathy. Given the dental workblood cultures and inflammatory markers to see if he is possibly smoldering some sort of infectious nidus. Could possibly be all due to a series of different acute viral illnesses, but in the context of seemingly similar episodes that are now happening more and more often, definitely want to rule out any sort of underlying pathology before simply attributing it to viral ---> Given the difficulty in discerning even the basic symptom complex, will continue to revisit with serial history, serial exam, and will ask neurology for an opinion on etiology as well (2) Nausea and vomiting: Plan: Probably relates to above, versus causative of abovestill fairly badaggressive symptom control. (3) Diabetes: Plan: Sugars reasonable, A1c 6.7 (4) Weight loss: Plan: Had a colonoscopy in late December with a few polyps but nothing else really of worry. Abdomen pelvis CT late January without any lumps/masses. Head CT last night without any findings. Chest x-ray last night without any findings. All of this points away from malignancy related to the weight loss. Continue to follow (5) Dental abscess: Plan: Blood cultures as above (6) DVT prophylaxis: Plan: SCDs Admission and Anticipated Discharge Date Admission Date: April 19, 2021 Subjective Symptoms not any better. He has a bit of a hard time describing his symptomsmostly because of having a bit of a hard time defining dizziness. On very directed questioning, which obviously will skew the history somewhat, he believes it is probably more of a positional lightheadedness than a spinning sensation, but this is only with a lot of directed questioning and almost leading him with multiple-choice answers. In that respect he does describe it as "feeling like the blood is all going to my neck" and its not so much that the world is moving. That said, whenever he moves his head too fast it seems like it might provoke it some. It definitely happens whenever he sits up. He has been nauseated all day and has not been able to eat. He also voices intentional weight loss of about 25 pounds followed by unintentional weight loss of another 25overall the weight loss over the last 2 years, but he is very concerned about the involuntary weight loss and while its not totally clear, seems to imply that some of that has been more recent. No diarrhea, no one else sick. He also is very concerned because he has now had 3 of these episodes1 year and a half ago, then another about 2 months ago, and now this oneand is concerned about more frequent and rapid recurrences Had some dental work done maybe 2 months ago, does get random chills recently. No fevers or sweats. Review of Systems Review of Systems: All systems reviewed & are unremarkable except as noted in HPI & below Physical Exam Physical Exam: In general he is awake and alert pleasant but appears somewhat fatigued and reticent to move. HEENT normocephalic atraumatic mucous membranes moist. Breathing unlabored no accessory muscle use good effort. Abdomen is soft nondistended nontender no masses organomegaly. Neuro shows cranial nerves II through XII be grossly intact gross motor and sensory intact. When he sits up he gets his dizzy sensation, there is no notable nystagmus. On Roel-Hallpike I cannot reproduce dizziness nor cause nystagmus either. Mental status is intacthe has good recent and remote recall and is a good historian, just has a hard time voicing exactly what his symptoms are. Results & Data Results & Data ([facility]) Vital Signs (Past 12 Hours) Vital Signs Temp Pulse Resp BP Pulse Ox 04/20/21 14:46 97.9 F 70 16 120/69 98 04/20/21 08:41 87 135/84 04/20/21 08:40 76 118/74 04/20/21 08:39 68 123/72 PG Care Time/CCT Total # of Minutes Spent Total Time Spent with Patient: Total time spent is greater than 50% in coordination of care (as documented) at patient's floor/unit and/or counseling patient: Coding Level of Care Code 53740 Subseq Hosp Care Lvl 3 Diagnoses Dizziness R42 Nausea and vomiting R11.2 Diabetes E11.9 Weight loss R63.4 Dental abscess K04.7 DVT prophylaxis Z29.9
[2021-04-20] MEDS: PANTOprazole 40 MG TAB PO SCH (20:22)
[2021-04-21] MEDS: ONDANSETRON INJ 2 MG/ML 2 ML VIAL IV SCH ×4 (04:46→21:17)
[2021-04-21] MEDS: LACTATED RINGER'S 1,000 ML IV SCH ×2 (06:58→14:12)
[2021-04-21] MEDS: PANTOprazole 40 MG TAB PO SCH ×2 (08:15→21:17)
[2021-04-21] MEDS: SUCRALFATE 1 GM/10 ML UDC PO SCH ×4 (08:15→21:17)
[2021-04-21] MEDS: FAMOTIDINE 20 MG in SYRINGE 3 ML IV SCH ×2 (08:15→21:17)
--- NOTE | 2021-04-21 08:22 | Neurology Consultation ---
Date of Consultation April 21, 2021 Assessment & Plan (1) Dizziness: (2) Hypertension: (3) Diabetes: (4) Idiopathic polyneuropathy: The patient had the onset of "dizziness" April 19. After interviewing the patient, I believe he is experiencing a type of vertigo, given that the envi ronment moves on him, and is associated with nausea and vomiting and an off balance sense. He has had some symptoms like this in the past as noted in the history, associated with perhaps viral illness. This time, he has no evidence for infection. He has no focal neurologic findings, meningeal signs, or encephalopathy. His MRI and CT angiography are normal, with no evidence of cerebral vascular disease or inner ear issue. Patient has hypertension which could "drive" these vertiginous symptoms and the patient has a history of diabetes likely not adequately controlled. On exam the patient has probable early polyneuropathy secondary to diabetes. Recommendations: 1. Consider meclizine 25 mg 3 times a day, as needed. 2. Control blood pressure as you are doing, aiming for a mean arterial pressure is approximately 95-100. 3. Control glucose as you are doing. 4. Increase activity as able , and consider some physical therapy. Overall, I spent a total of 75 minutes with this case including review of records, review of CT and MRI films, direct evaluation patient at bedside, and discussion of the case with the patient an RN at bedside, and Dr. Saunders, including differential diagnosis and treatment options. History of Present Illness Reason for Consultation: Patient is a 70-year-old, who I was asked to see at the request of Dr. Bhatti, neurologic consultation regarding dizziness. Requesting Physician: Dr. Bhatti Attending Physician: Chauncey Saunders MD History of Present Illness This patient has a diagnosis type 2 diabetes the last couple of years on metformin. He had sleep apnea in the past but this has improved weight loss does use any equipment current. Wonders if he had some hypertension in the past but he has never really been treated it. 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 He does not believe he has hearing loss and he does not ear pain. In June of 2019 he had the sudden onset of nausea, vomiting, achiness, chills, and a generalized sense of weakness. He would get lightheaded and woozy if he moves his head quickly. Any movement would increase symptoms. He was evaluated in the emergency room and his labs were unremarkable except for a glucose of 290. he tells me that his symptoms resolved by 1 day. On February 13, 2021, he came to the emergency room for nausea and vomiting. Although this and some GI symptoms have been going on for 4 or 5 days the dizziness with head movement started and lasted a day. He tells me that head movement gave him a sense of lightheadedness plus a sense of the environment moving some. In between these episodes he did well until recently. 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 He did not eat much that morning tried to have some liquids. Around 1245 he noted that any time he moved his head the environment moved some and took his eyes a few seconds to focus the jumpiness and blurriness. He did not have double vision. He did have some nausea and he went to an urgent care center in [place]. There the symptoms got worse and he had nausea and vomiting for 5 times. His balance was poor. Although he did not fall he felt that he was pulled more to the right than to the left. Any movement of his head would give him a combination of lightheadedness but also the environment moving a bit in front of him. When he was still this would felicita. He arrived to the emergency room April 19 at 2:33 p.m. with a temperature of 36.7, pulse 83, respiratory rate 22, blood pressure 154/93, and O2 saturation 100%. Neurologic examination was unremarkable. CBC and Chem profile remarkable only for glucose of 170. Urinalysis was unremarkable. Chest x-ray was unremarkable. CT scan of the head showed a possible old left external capsule lesion. CT angiography of the head neck are unremarkable with no vascular stenoses or anomalies. MRI of the brain with without contrast was unremarkable with no evidence of new or old stroke, tumor, or inner ear abnormality. I reviewed these films. Today the patient is better and feels about a 50% improvement in his symptoms that occur with head movement. He does not have much in the way of nausea and has not vomited since yesterday during the MRI. Blood pressure today is 160/80 any remains afebrile. Allergies Allergy/AdvReac Type Severity Reaction Status Date / Time No Known Allergies Allergy Unverified 04/19/21 17:06 Home Medications Medication Instructions Recorded Confirmed Type metformin 1,000 mg tablet 1,000 mg PO BID #60 tab 08/02/20 04/19/21 Rx multivitamin 1 tab PO QAM 12/28/20 04/19/21 History aspirin-acetaminophen (buffered) 1 tab PO DIRECTED PRN 04/19/21 04/19/21 Hi story 250 mg-250 mg tablet Patient History Medical History DM type 2 (diabetes mellitus, type 2) History of sleep apnea resolved after wt loss Slow to wake up after anesthesia Surgical History History of biopsy skin History of cataract surgery History of tooth extraction S/P correction of deviated nasal septum Family History Mother , age 94 Primary cancer of orbit Father , age 62 of lung cancer Lung cancer Social History Smoking Status: Never smoker Second Hand Exposure: Yes; Do You Dip or Chew Tobacco: No; Hx Alcohol Use: No Hx Substance Use: No Preferred Language: Cambodian Communication Ability: Effective Refrigerating Oiler Required: No Beliefs That Will Affect Care: None Current Living Situation: Spouse current occupational status: employed 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 Other Information That Helps Us Care for You: Yes Feels Safe at Home: Yes Safety Concerns: Feels Safe At This Time Assistive Devices: None Review of Systems 2 Constitutional: no fever, no fatigue and no weakness Eyes: no diplopia, no eye pain and no worsening vision Ear, Nose, Mouth, Throat: + tinnitus and + dizziness; no ear pain, no hearing loss, no snoring, no hoarseness and no dysphagia Respiratory: no cough and no dyspnea Cardiovascular: no chest pain, no palpitations and no lightheadedness Gastrointestinal: + nausea; no abdominal pain and no vomiting Musculoskeletal: no back pain, no neck pain, no radicular pain, no joint pain and no myalgia Integumentary: no rash and no lesions Neurologic: + unsteadiness and + dizziness; no gait abnormality, no localized weakness, no generalized weakness, no tingling, no numbness, no tremor(s), no abnormal movements, no headache(s), no abnormal speech, no confusion and no memory loss Psychiatric: no depression, no irritability, no anxiety, no difficulty concentrating, no confusion and no hallucinations Endocrine: no fatigue and no flushing Hematologic / Lymphatic: no easy bleeding and no easy bruising Allergy / Immunological: no urticaria and no problem reported Exam (Neuro) Physical Exam: The patient is right-handed. The patient is awake, alert, and attentive. Speech is normal without any aphasia or dysarthria. The patient can name objects, repeat phrases, and has normal spontaneous speech. Mentation and thought processes are intact, with orientation to person, place and time, and normal fund of knowledge. Attention and concentration are normal. Mood and affect are normal and appropriate. General appearance and grooming are normal. Short and long-term memory are intact. Pupils are 4 mm bilaterally and reactive to light. Lying in bed with head and eyes to the front, not moving his head, extraocular eye muscles are intact without nystagmus. Visual acuity and visual kaur seem normal grossly to confrontation. when he moves his head to the right and left he has a sensation of wooziness which is a combination of lightheadedness and the environment moving without nystagmus. It is worse when he moves to the right than to the left. When he sits up the same experience happens and no nystagmus. When he stands, the symptoms are worse, again, without nystagmus. There are no deficits to sensation in the face in all 3 distributions of the fifth cranial nerve bilaterally. Corneal reflexes are positive bilaterally. Facial strength and symmetry was normal bilaterally. Hearing seems normal bilaterally. Palate moves well without asymmetry. There is normal sternocleidomastoid and trapezius (shoulder shrug) strength bilaterally. Tongue is midline with good strength bilaterally. Neck has a full range of motion without discomfort. There are no cervical bruits bilaterally. There are no cranial or ocular bruits. Heart is without murmur. There is a regular rhythm and rate. Cervical, thoracic, and lumbar spine are nontender to palpation. Gait is Not tested but stance with feet together and eyes open is stable but gives him dizziness (a combination of lightheadedness and the environment moving ). With outstretched arms there is no drift. There are no resting, postural, or action tremors. There is no ataxia with finger to nose testing. There is good facility in the hands. No other abnormal involuntary movements are noted. Motor strength is 5/5 diffusely in the arms bilaterally including deltoids, biceps, triceps, brachioradialis, wrist flexors and extensors, anesthetist, and intrinsic hand muscles. Motor strength is 5/5 diffusely in the legs bilaterally including hip flexors, quadriceps, hamstrings, gastrocnemius, tibialis anterior, tibialis posterior, and Peroneii muscles. Toe extensors are normal and there is good bulk in the extensor digitorum brevis muscles bilaterally. The limbs have good tone without rigidity or spasticity. There is no atrophy noted in the muscles. Muscle bulk is normal, there is no tenderness to palpation, no myotonia to percussion, and no fasciculations seen. Sensory examination reveals decreased sensation in the feet bilaterally. Reflexes are 2/4 in the biceps, triceps, and quadriceps, tendons bilaterally. Brachioradialis and Achilles tendon reflexes are absent bilaterally. There is no clonus bilaterally. Toes are downgoing with plantar stimulation bilaterally. Peripheral pulses are present and of normal quality distally in all 4 limbs. There is no peripheral edema noted in the limbs. Results & Data ([facility]) Vital Signs (Past 12 Hours) Vital Signs Temp Pulse Resp BP Pulse Ox 04/20/21 22:29 36.6 C 67 15 127/67 97 PG Care Time/CCT Total # of Minutes Spent Total Time Spent with Patient: Total time spent is greater than 50% in coordination of care (as documented) at patient's floor/unit and/or counseling patient: Coding Level of Care Code 95718 Inpt Consult Level 5 Diagnoses Dizziness R42 Hypertension I10 Diabetes E11.9 Idiopathic polyneuropathy G60.9
[2021-04-21] MEDS: MECLIZINE HCL 25 MG TAB PO SCH ×3 (09:06→21:17)
--- NOTE | 2021-04-21 09:44 | XCELERA ---
[id number] \\[id number]
--- NOTE | 2021-04-21 16:24 | Hospitalist Progress Note ---
Date of Service April 21, 2021 Assessment & Plan (1) Dizziness: Plan: Has been a bit difficult to discern his exact symptoms, but with serial histories, as well as multiple physicians taking history, it seeming more and more clear this probably is an inner ear issue. Clarifying symptoms, it seems most consistent with something in the order of Mnire's. Neurology recommended trial of meclizinethis was started earlier today. In review of the literature thiazide diuretics can potentially be of benefitinitiating this today as well. In terms of ruling out other etiologies, a very broad work-up has been quite reassuring. Will try to work on improvement in symptoms so that he can be steady on his feet and eating without vomiting/no longer having such poor p.o. intake that he still losing weight. Once he reaches these 2 goals we can look at home and outpatient P CP/ENT follow-up, vestibular therapy as well (2) Nausea and vomiting: Plan: Probably relates to above, versus causative of abovestill fairly badaggressive symptom control seems to be helping (3) Diabetes: Plan: Sugars reasonable, A1c 6.7 (4) Weight loss: Plan: Had a colonoscopy in late December with a few polyps but nothing else really of worry. Abdomen pelvis CT late January without any lumps/masses. Head CT last night without any findings. Chest x-ray last night without any findings. All of this points away from malignancy related to the weight loss. Continue to follow (5) Dental abscess: Plan: Blood cultures negative. No ongoing dental issues (6) DVT prophylaxis: Plan: SCDs (7) Right sided heart: Plan: elevated R heart pressure - ?YUMIKO - outpt sleep study. Admission and Anticipated Discharge Date Admission Date: April 20, 2021 Subjective Dizziness about the same. Nausea was better whenever he was not movinghe was able to eat breakfast well, he was not able to eat lunch because he had just worked with physical therapy and was feeling very dizzy and very nauseated. Fortunately he has not vomited. Otherwise symptoms about the same as yesterday. Neurology input greatly appreciated. After discussion with neurology, clarifying patient's symptoms further, he does note hearing loss and longstanding tinnitus. Review of Systems Review of Systems: All systems reviewed & are unremarkable except as noted in HPI & below Physical Exam Physical Exam: In general he is awake and alert pleasant no distress. HEENT normocephalic atraumatic mucous membranes moist. Breathing unlabored no accessory muscle use good effort. Skin shows no rashes no pallor or icterus. Neuro without focal deficits. Results & Data Results & Data ([facility]) Vital Signs (Past 12 Hours) Vital Signs Temp Pulse Resp BP Pulse Ox 04/21/21 14:29 98.4 F 68 17 164/83 H 97 04/21/21 08:02 98.4 F 65 17 160/80 H 98 PG Care Time/CCT Total # of Minutes Spent Total Time Spent with Patient: Total time spent is greater than 50% in coordination of care (as documented) at patient's floor/unit and/or counseling patient: Coding Level of Care Code 04110 Subseq Hosp Care Lvl 3 Diagnoses Dizziness R42 Nausea and vomiting R11.2 Diabetes E11.9 Weight loss R63.4 Dental abscess K04.7 DVT prophylaxis Z29.9 Right sided heart Q24.8
[2021-04-21] MEDS: TRIAMTERENE/HCTZ 37.5/25MG CAP PO SCH (16:44)
[2021-04-22] MEDS: ONDANSETRON INJ 2 MG/ML 2 ML VIAL IV SCH ×2 (05:08→07:25)
[2021-04-22 07:13] LABS: BUN Creatinine Ratio 12.1 (10-20); Calcium 9.4 mg/dl (8.5-10.1); Creatinine Clr Calc Pharmacy 81.9 ml/min; Est GFR (African American) 90.3 ml/min; Est GFR (Non-African American) 77.9 ml/min; Potassium 3.8 mmol/L (3.5-5.1)
[2021-04-22] MEDS: PANTOprazole 40 MG TAB PO SCH (07:14)
[2021-04-22] MEDS: MECLIZINE HCL 25 MG TAB PO SCH ×2 (07:14→11:10)
[2021-04-22] MEDS: TRIAMTERENE/HCTZ 37.5/25MG CAP PO SCH (07:14)
[2021-04-22] MEDS: SUCRALFATE 1 GM/10 ML UDC PO SCH ×2 (07:15→11:10)
[2021-04-22] MEDS: FAMOTIDINE 20 MG in SYRINGE 3 ML IV SCH (07:25)
--- NOTE | 2021-04-22 16:03 | Discharge Summary ---
Date of Service April 22, 2021 Admission HPI Per Admitting Provider 70 yo M Hx DM2, BPH presented to the ER for nausea and vomiting with associated dizziness and unsteadiness on his feet. His vitals were noted to be normal in the ER. He has been evaluated for similar symptoms in the past without findings on CTAP (most recently in 12/2020). He had CTA Head/Neck to evaluate for CVA which showed nondescript poly area supervisor of prominent vascular spaces vs. chronic lacunar infarct. He received Zofran, lorazepam, and IV steroids without much improvement in his nausea and vomiting, and hospitalist service was consulted for observation. On my interview patient is still nauseated. He is unsure if food has made it worse in the past, but he has not had anything to eat today. He had pizza for dinner last night, which he also ate and she is asymptomatic. He also had [employer] snack wraps yesterday which his did not have. He has not noticed if movement makes the symptoms worse, but keeping his eyes closed does seem to help somewhat. He denies associated abdominal pain, diarrhea, fevers, URI symptoms, UTI symptoms. He did endorse tinnitus for several years, but no decreased hearing. Principal Diagnosis vertigo - probable meniere's Discharge Exam gen aao pleasant nad heent nc at mmm breathing unlabored no accessory muscles good effort. moving around much more freely without appearance of distress. 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 Clarifying symptoms, it seems most consistent with something in the order of Mnire's. Neurology recommended trial of meclizineinitiated. also initiated triamterene/hctz based on literature and probability that this is meniere's -outpt ENT eval to confirm dx or eval for other ddx's and to assist in treatment -vestibular PT -safe for home (2) Nausea and vomiting: Probably relates to above, ondansetron (3) Diabetes: Sugars reasonable, A1c 6.7 (4) Weight loss: Had a colonoscopy in late December with a few polyps but nothing else really of worry. Abdomen pelvis CT late January without any lumps/masses. Head CT last night without any findings. Chest x-ray last night without any findings. All of this points away from malignancy related to the weight loss. Continue to follow as outpt (5) Dental abscess: Blood cultures negative. No ongoing dental issues (6) DVT prophylaxis: SCDs (7) Right sided heart: elevated R heart pressure - ?YUMIKO - outpt sleep study. Total Time Total Time Spent Total Time Spent (In Minutes): <30 Discharge Plan Discharge Items Patient Disposition: Home - Home Health Services Reason For Visit: INTRACTABLE NAUSEA/VOMITING, GASTRITIS VS. VERITGO Discharge Diagnosis: vertigo - almost certainly innear ear - probable meniere's Condition on Discharge: Good Activity: Resume your previous activity Non-emergency contact: Primary Care Provider and Specialist Call non-emergency contact if: you have any medication questions Follow-up/Referrals: Trinity Dinero MD [Primary Care Provider] - 05/01/21 10:30 am Diet: Regular Addtl Attending Provider Instructions: vertigo -after several evaluations and an extensive workup to rule out other problems - this really appears to be inner ear caused. your other symptoms fit pretty well with a process called meniere's disease. before "100% label it" as that, we'll get you referred to an ENT physician since this kind of problem crosses their path more often than the rest of us -for now we'll continue the meclizine - it's an antihistamine that sometimes helps with dizziness symptoms - although it's not necessarily proven with meniere's. right now, while the diagnosis is a "work in progress" we will have you continue with the meclizine -- at least for a few more days -- if you see that it's not really doing anything it's OK to stop. the main side effect would just be causing some grogginess -we've also started a diuretic - triamterene/hydrochlorothiazide - simply because if this is meniere's medications like that can be helpful. so far it does not appear to have dropped your blood pressure much (it's most commonly used as a blood pressure medicine). we would ask that you have labwork done in 1-2 weeks (BMP - basic metabolic panel) at your PCP's office just because sometimes diuretics like this can cause some electrolyte troubles - it's not likely but screening for it once you've been on it for a week or two can serve well to catch any problems if they were happening -in addition to the ENT referral, we will set things in motion to start vestibular physical therapy - a specific kind of physical therapy that tries to help with dizziness and balance -between now and when your symptoms improve, just prioritize safety; go slow, use the walker for steadiness, etc Pending Studies at Discharge: No Stand-Alone Forms: My [facility], Smoking Cessation Medications and DC Order Prescriptions: New triamterene-hydrochlorothiazid 37.5-25 mg Capsule 1 cap PO QAM Qty: 30 RF: 0 meclizine 25 mg Tablet 25 mg PO TID Qty: 30 RF: 0 ondansetron 4 mg tablet,disintegrating 4 mg PO TID PRN (Reason: nausea and vomiting) Qty: 30 RF: 0 Continued metformin 1,000 mg tablet 1,000 mg PO BID Qty: 60 RF: 5 aspirin-acetaminophen (buffer) 250-250 mg Tablet 1 tab PO DIRECTED PRN (Reason: Pain) RF: 0 multivitamin Tablet 1 tab PO QAM RF: 0 Discharge Orders: Discharge Order (Routine); Ordered 04/22/21 Ordered By: Santiago Erazo/Other Patient Handouts: High Blood Sugar (Hyperglycemia), Hypoglycemia (Low Blood Sugar), Managing Type 2 Diabetes, Special Foot Care for Diabetes Admission Data Admit Date/Time: 04/20/21 19:33 Attending Provider: Santiago Bhatti Admit Provider: Lulu Leo Primary Care Provider: Trinity Dinero Other Providers: Isai Jimenez ; Royal Marquez ; Chauncey Saunders Other Interventions: Discharge Summary Assessment (RN) Last Done: 04/22/21 15:44 Coding Level of Care Code D/C DAY MANAGEMENT <30 MINS Diagnoses Dizziness R42 Nausea and vomiting R11.2 Diabetes E11.9 Weight loss R63.4 Dental abscess K04.7 DVT prophylaxis Z29.9 Right sided heart Q24.8
--- NOTE | 2021-04-23 13:45 | Billing Data ---
Date of Service April 19, 2021 Coding Level of Care Code INT OBSERVATION CARE 50M LVL 2
== END 2021-04-22 16:27 | disposition home health service (06) ==
LOC: 3N 14:29 → ED 14:29 → SUATTDRO 18:38 → 3N 20:11 → SUATTDRO 04-20 19:33 → 3N 04-21 23:40

== ENCOUNTER 2021-11-18 13:28 | Inpatient (IN) ==
[2021-11-18] MEDS ORDERED: PIPERACILLIN/TAZOBACTAM 4.5 GM in DEXTROSE 5% 100 ML IV ONE (14:01)
[2021-11-18] MEDS ORDERED: DAPTOmycin 475 MG in SYRINGE 0 ML IV STA (14:01)
[2021-11-18] MEDS ORDERED: SODIUM CHLORIDE 0.9% 1000ML 1,000 ML IV SCH ×2 (14:15→15:15)
[2021-11-18 14:36] LABS: Basophils # (auto) 0.03 K/uL (0-0.2); Basophils % (auto) 0.4 %; Eosinophils # (auto) 0.17 K/uL (0-0.50); Eosinophils % (auto) 2.2 %; Hemoglobin 12.2 g/dl (14.0-18.0); Immature Granulocytes # (auto) 0.02 K/uL (0.00-0.02); Immature Granulocytes % (auto) 0.3 %; Lymphocytes # (auto) 0.54 K/uL (1.2-3.4); Lymphocytes % (auto) 7.1 %; Mean Corpuscular Hemoglobin 28.4 pg (25.0-34.0); Mean Corpuscular Hgb Conc 33.9 g/dL (32.0-36.0); Mean Corpuscular Volume 83.9 fL (80.0-100.0); Mean Platelet Volume 9.4 fL (9.4-12.4); Monocytes # (auto) 0.88 K/uL (0.24-0.82); Monocytes % (auto) 11.6 %; Neutrophils # (auto) 5.97 K/uL (1.4-6.5); Neutrophils % (auto) 78.4 %; Platelet Count 207 K/uL (130-400); RDW Coefficient of Variation 11.9 % (11.5-14.5); RDW Standard Deviation 35.9 fL (36.4-46.3); Red Blood Count 4.29 M/uL (4.63-6.08); White Blood Count 7.61 K/ul (4.8-10.8)
--- NOTE | 2021-11-18 14:46 | XRay Report ---
XR foot LT min 3V routine CLINICAL HISTORY: diabetic ulcer, infection, eval osseous involv. TECHNIQUE: 3 views of the left foot were obtained. Comparison: None available at the time of this dictation. FINDINGS: There is a dislocation of the fifth metatarsophalangeal joint with medial displacement of the proxima l phalanx. There is osteopenia without focal erosions to suggest osteomyelitis. Plantar enthesophyte is noted in the calcaneus. Soft tissue swelling is seen most prominent in the fifth metatarsophalange al joint. There is lucency in this region compatible with reported ulcer. IMPRESSION: 1. Fifth metatarsophalangeal joint dislocation without evidence of underlying fracture. 2. Soft tissue swelling and ulcer in the fifth MTP joint region without focal osteopenia to suggest underlying erosion. If there is clinical concern for osteomyelitis, MRI is more sensitive modality. ACT 112: Negative or not required by law. Electronically signed by: Luis Turner M.D. 11/18/2021 2:45 PM
--- NOTE | 2021-11-18 14:47 | XRay Report ---
XR chest 1V portable CLINICAL HISTORY: SEPSIS TECHNIQUE: Single frontal radiograph of the chest was obtained. Comparison: Comparison is made to chest radiograph 04/19/2021 FINDINGS: No lines and tubes are seen. The cardiomediastinal silhouette is normal. The lungs are clear. No evid ence of pleural effusion or pneumothorax. IMPRESSION: No acute chest disease. ACT 112: Negative or not required by law. Electronically signed by: Luis Turner M.D. 11/18/2021 2:46 PM
[2021-11-18 14:52] LABS: Partial Thromboplastin Ratio 1.1; Partial Thromboplastin Time 31.6 Seconds (21.0-31.0); Prothrombin Time 10.6 Seconds (9.0-12.0)
[2021-11-18 15:04] LABS: Albumin Globulin Ratio 1.1 (0.9-2); Albumin Level 3.9 gm/dl (3.4-5.0); BUN Creatinine Ratio 15.1 (10-20); Bilirubin,Total 0.4 mg/dl (0.2-1.0); C Reactive Protein 13.1 mg/dl (0-0.5); Calcium 9.7 mg/dl (8.5-10.1); Creatinine Clr Calc Pharmacy 66.2 ml/min; Est GFR (African American) 71.8 ml/min; Globulin 3.5 gm/dl (2.5-4.0); Magnesium 1.7 mg/dl (1.7-2.4); Potassium 4.7 mmol/L (3.5-5.1); Total Protein 7.4 gm/dl (6.0-8.3)
[2021-11-18] MEDS ORDERED: SODIUM CHLORIDE 0.9% 1000ML 500 ML IV SCH (16:15)
--- NOTE | 2021-11-18 16:38 | History & Physical Report ---
Date of Service November 18, 2021 Assessment & Plan (1) Foot ulcer, left: Plan: - Diabetic foot ulcer vs osteomyelitis. - Ulcers have been present for 4-5 years, patient attributes them to back injury several years ago which is disrupted distribution of weight on this foot. He is to follow-up with podiatry, has not seen them in 2 years as symptoms were getting better at that point he did not feel it was necessary. - ESR and CRP elevated, lactate 2.4, without elevated WBC or PCT. - Place empirically on dapto and Zosyn for broad spectrum coverage. - Tailor to blood and wound cultures as they become available. - Will consult wound care. - A1c in Am, patient has elevated glucose, 227 on BMP. He does not ever check sugars at home. Last A1c in 6.7%, recheck tomorrow. - Will need tight control of sugars to promote wound healing. (2) DM type 2 (diabetes mellitus, type 2): Plan: - Home regimen includes metformin 1000 mg BID. Will hold while patient. - Accu-Cheks ACH S with sliding scale insulin. - A1c in AM. (3) History of sleep apnea: Plan: - Elevated RVSP 30 -40 mmHg on Echo in Apr as part od CVA workup (final diagnosis Menier's dz) - Was evaluated for Ruby as outpatinet, per patient has resolved with weight loss. (4) Meniere disease: Plan: - Continue meclizine prn. Plan - Admit med/surg. - SCDs and Lovenox for VTE ppx. - Full Code. History of Present Illness Chief Complaint: left foot pain x 3 days Primary Care Provider: Trinity Dinero MD Jd Paz is a 71-year-old male with past medical history significant for DM2, BPH, hypertension, idiopathic neuropathy, Meniere's disease, sleep apnea who presents today with left foot pain. He has a history of ulcers on his foot which he relates to rupturing a disc many years ago, causing him unequal distribution of weight on his lower feet, however has not seen podiatry in over 2 years. Over the past week he noticed more pain in his left foot, developing redness around and Friday and with some weeping from the wound at the base of his left pinky toe. He and his have been trying to wrap his feet at home apply ointments to them, however they continue to get worse despite this so they present today for further evaluation. 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 He states that he does have feeling in his feet, does not recall stepping on anything or injuring his foot in any way. Other than pain and discharge at the left foot, he is not complaining of any fever chills, body aches, nausea, vomiting, abdominal pain. No shortness of breath, palpitations, or unilateral leg swelling, calf pain. Upon presentation to ED, he was tachycardic HR 110s, moderately hypertensive 143/88, otherwise afebrile, SPO2 > 95% on RA. Lab significant for elevated ESR 48, CRP 13.10, lactate 2.4, glucose 227. Creatinine is mildly bumped at 1.19, baseline seems to be 0.91.10. Hgb 12.2. No electrolyte abnormalities. Procalcitonin 0.08. COVID-negative. Left foot XR shows fifth metatarsophalangeal joint dislocation without evidence of underlying fracture, there is soft tissue swelling also in the soft MTP joint region without focal osteopenia distress evaluation. Blood and wound cultures collected. Patient received 2.5L NS IVF, started on daptomycin and Zosyn in ED. Allergies Allergy/AdvReac Type Severity Reaction Status Date / Time No Known Allergies Allergy Verified 11/18/21 16:01 Home Medications Medication Instructions Recorded Confirmed Type multivitamin 1 tab PO QAM 12/28/20 11/18/21 History metformin 1,000 mg tablet 1,000 mg PO BID #60 tabs 05/22/21 11/18/21 Rx sildenafil 100 mg tablet 100 mg PO DAILY PRN sexual 05/22/21 11/18/21 Rx activity #30 tabs acetaminophen-caffeine 500 mg-65 1 tab PO DIRECTED PRN HEADACHES 11/18/21 11/18/21 History mg tablet (Excedrin Tension Headache) meclizine 25 mg tablet 25 mg PO TID PRN Dizziness 11/18/21 11/18/21 History Past Med/Surg History Medical History (Updated 11/18/21 @ 17:13 by Roxi Freeman PA-C) DM type 2 (diabetes mellitus, type 2) History of sleep apnea resolved after wt loss Slow to wake up after anesthesia Surgical History History of biopsy skin History of cataract surgery History of tooth extraction S/P correction of deviated nasal septum Family History Mother , age 94 Primary cancer of orbit Father , age 62 of lung cancer Lung cancer Other No family history of adverse response to anesthesia No family history of bleeding disorder Social History Smoking Status: Never smoker Second Hand Exposure: Yes; Hx Alcohol Use: No Hx Substance Use: No Preferred Language: Yi Communication Ability: Effective Dining Room Maid Required: No Beliefs That Will Affect Care: None marital status: Current Living Situation: Spouse current occupational status: employed 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 Feels Safe at Home: Yes Childhood Exposure to Second-Hand Smoke: Yes caffeine: Yes Dental Care, Regularly: No Physical Activity Frequency: Daily Seatbelt Use: always Sunscreen Use: No Assistive Devices: None Review of Systems Review of Systems: Constitutional: No fever/chills, weakness, fatigue, myalgias, anorexia, night sweats Eyes: No diplopia, no worsening or blurred vision ENT: normal hearing, no trouble swallowing Respiratory: No cough, sputum, dyspnea at rest or on exertion Cardiovascular: No chest pain, tightness or palpitations Abdomen: No pain, nausea, vomiting, diarrhea or constipation : Denies dysuria, hematuria, increased urgency/frequency, urinary retention Musculoskeletal: No joint pain, calf pain, swelling Neurologic: No weakness, numbness/tingling, or balance problems Psychiatric: No anxiety or depression Skin: No rash or itch Physical Exam Physical Exam: General: awake, alert, no apparent distress Head: Normocephalic, atraumatic ENT: PERRL, EOMI, no pharyngeal exudate, mucous membranes moist Chest: Clear to auscultation, on room air, no adventitious breath sounds Cardiac: Regular rate and rhythm, no murmur, no JVD, normal peripheral pulses, good capillary refill Abdominal: NABS x 4 quadrants, soft, nontender to palpation, no rebound, guarding or tenderness Extremities: b/l feet wrapped, left foot is erythematous w. an ulcer on plantar surface of the great toe base and base of the 5th metatarsal; otherwise ormal inspection, no peripheral edema or erythema, calfs nontender to palpation Psych: Normal mood and affect Neuro: AAO x 3, strength intact bilaterally and rated 5/5, no motor deficits, speech is clear, no peripheral sensory deficits Skin: no rash or erythema Results & Data Results & Data ([facility]) Vital Signs (Past 12 Hours) Vital Signs Temp Pulse Pulse Resp BP BP Pulse Ox 11/18/21 14:20 22 98 11/18/21 14:54 37.4 C 144/88 H 11/18/21 14:54 120 H 22 98 11/18/21 13:50 118 H 22 144/88 H 98 11/18/21 13:31 36.8 C 115 H 19 143/88 H 97 O2 Del Method 11/18/21 14:20 Room Air 11/18/21 14:54 11/18/21 14:54 Room Air 11/18/21 13:50 Room Air 11/18/21 13:31 Room Air Laboratory Results Abnormal lab results 11/18/21 11/18/21 11/18/21 Range/Units 14:20 14:20 14:20 RBC 4.29 L (4.63-6.08) M/uL Hgb 12.2 L (14.0-18.0) g/dl Hct 36.0 L (40.1-51.0) % RDW Std Deviation 35.9 L (36.4-46.3) fL Lymph # (Auto) 0.54 L (1.2-3.4) K/uL Liberty # (Auto) 0.88 H (0.24-0.82) K/uL ESR 48 H (0-20) mm/hr APTT 31.6 H (21.0-31.0) Seconds Sodium (136-145) mmol/L Glucose (70-99(Fasting)) mg/dl Lactate (0.4-2.0) mmol/L AST (13-39) U/L C-Reactive Protein (0-0.5) mg/dl 11/18/21 11/18/21 Range/Units 14:20 14:20 RBC (4.63-6.08) M/uL Hgb (14.0-18.0) g/dl Hct (40.1-51.0) % RDW Std Deviation (36.4-46.3) fL Lymph # (Auto) (1.2-3.4) K/uL [place] # (Auto) (0.24-0.82) K/uL ESR (0-20) mm/hr APTT (21.0-31.0) Seconds Sodium 134 L (136-145) mmol/L Glucose 227 H (70-99(Fasting)) mg/dl Lactate 2.4 H* (0.4-2.0) mmol/L AST 10 L (13-39) U/L C-Reactive Protein 13.10 H (0-0.5) mg/dl Diagnostic Findings Chest X-Ray 11/18/21 13:59 XR chest 1V portable CLINICAL HISTORY: SEPSIS TECHNIQUE: Single frontal radiograph of the chest was obtained. Comparison: Comparison is made to chest radiograph 04/19/2021 FINDINGS: No lines and tubes are seen. The cardiomediastinal silhouette is normal. The lungs are clear. No evidence of pleural effusion or pneumothorax. IMPRESSION: No acute chest disease. ACT 112: Negative or not required by law. Electronically signed by: Luis Turner M.D. 11/18/2021 2:46 PM Foot X-Ray 11/18/21 13:59 XR foot LT min 3V routine CLINICAL HISTORY: diabetic ulcer, infection, eval osseous involv. TECHNIQUE: 3 views of the left foot were obtained. Comparison: None available at the time of this dictation. FINDINGS: There is a dislocation of the fifth metatarsophalangeal joint with medial displacement of the proximal phalanx. There is osteopenia without focal erosions to suggest osteomyelitis. Plantar enthesophyte is noted in the calcaneus. Soft tissue swelling is seen most prominent in the fifth metatarsophalangeal joint. There is lucency in this region compatible with reported ulcer. IMPRESSION: 1. Fifth metatarsophalangeal joint dislocation without evidence of underlying fracture. 2. Soft tissue swelling and ulcer in the fifth MTP joint region without focal osteopenia to suggest underlying erosion. If there is clinical concern for osteomyelitis, MRI is more sensitive modality. ACT 112: Negative or not required by law. Electronically signed by: Luis Turner M.D. 11/18/2021 2:45 PM ECG Additional Comments: Normal sinus rhythm Septal infarct , age undetermined Abnormal ECG When compared with ECG of 19-APR-2021 15:11, No significant change was found. Code Status & VTE Plan Code Status Full code. Supervising Physician Co-Signing Physician Notes I personally examined the patient and verified all prabhakar points of history and exam, discussed case, and agree with decision making with Juliano HERNANDEZ Foot red and infected. Has poor sensation, but to the best of his knowledge good circulation. Vitals noted, in general he is awake and alert pleasant no distress. HEENT normocephalic atraumatic mucous membranes moist. Breathing unlabored no accessory muscle use good effort. Skin shows no rashes no pallor or icterus. Left foot lateral to his fifth toe PIP joint there is a small area of ulceration/opening that has exudate spontaneously pouring out/freely expressible. Its not very tender but he also notes markedly diminished s ensation in the area. He has erythema all along the lateral side of his foot. Foot infection with poor sensationconcern on whether or not there could be osteomyelitisobviously not overtly so on x-ray, but with his markedly diminished sensation, area of ulceration, uncertain duration of infection until it got to the point of getting his attention, and the overall clinical appearanceMRI done and is pending. Broad antibiotics, narrow as possible. Wound care. Follow closely. Low threshold for arterial imaging, although he appears that this is probably much more neuropathy driven. Otherwise as above. PG Care Time/CCT Total # of Minutes Spent Total Time Spent with Patient: Total time spent is greater than 50% in coordination of care (as documented) at patient's floor/unit and/or counseling patient: Coding Level of Care Code 36379 Initial Inpt Care Lvl 3 Diagnoses Foot ulcer, left L97.529 DM type 2 (diabetes mellitus, type 2) E11.9 History of sleep apnea Z86.69 Meniere disease H81.09
[2021-11-18] MEDS ORDERED: GADOBUTROL 65ML VIAL IV ONE (17:20)
--- NOTE | 2021-11-18 18:14 | Magnetic Resonance Report ---
MR foot LT wo/w con CLINICAL HISTORY: left foot ulcer, r/o osteomyelitis TECHNIQUE: Multiplanar multisequence MR images of the left foot were obtained. Comparison: Comparison is made to left foot radiograph 11/18/2021 FINDINGS: Bones: Again noted is a dislocation of the fifth digit metatarsal phalangeal joint. There is extensiv e bony edema in the fifth metatarsal and to a lesser extent in the proximal phalanx. There is an appr oximately 15 mm T2 hyperintense, T1 rim-enhancing hypointense focus at the metatarsophalangeal joint. Soft tissue: Extensive soft tissue edema is seen most prominent in the lateral aspect of the foot. Ap art from the above findings, no drainable fluid collections are definitely seen. IMPRESSION: Findings are compatible with osteomyelitis of the fifth metatarsal and proximal phalanx with dislocat ion and likely septic arthritis of the metatarsophalangeal joint versus less likely adjacent abscess. Surrounding cellulitis is noted. ACT 112: Negative or not required by law. Electronically signed by: Luis Turner M.D. 11/18/2021 6:12 PM
[2021-11-18 18:32] LABS: Appearance Urine Clear (Clear); Bilirubin Urine Negative (Negative); Blood Urine Negative (Negative); Color Urine Yellow; Glucose Urine UA Trace (Negative); Ketones Urine Negative (Negative); Leukocyte Esterase Urine Negative (Negative); Nitrite Urine Negative (Negative); Protein Urine Negative (Negative); Specific Gravity Urine 1.016 (1.000-1.030); Urobilinogen Urine Negative (Negative); pH Urine 5.5 (4.5-7.5)
[2021-11-18] MEDS ORDERED: GLUCOSE 10 TAB/TUBE PO PRN (19:08)
[2021-11-18] MEDS ORDERED: CARBOHYDRATES FOR HYPOGLYCEMIA PO PRN (19:08)
[2021-11-18] MEDS ORDERED: ONDANSETRON INJ 2 MG/ML 2 ML VIAL IV PRN (19:08)
[2021-11-18] MEDS ORDERED: GLUCOSE 40% GEL 15 GM TUBE PO PRN (19:08)
[2021-11-18] MEDS ORDERED: DEXTROSE 50% 50 ML SYRINGE IV PRN (19:08)
[2021-11-18] MEDS ORDERED: NON-FORMULARY MEDICATION (Acetaminophen-Caffeine [Excedrin Tension Headache] 500-65 mg Tab PO PRN (19:08)
[2021-11-18] MEDS ORDERED: MECLIZINE HCL 25 MG TAB PO PRN (19:08)
[2021-11-18] MEDS ORDERED: GLUCAGON FOR INJ 1 MG VIAL SQ PRN (19:08)
[2021-11-18] MEDS ORDERED: LACTATED RINGER'S 1,000 ML IV SCH (19:30)
--- NOTE | 2021-11-18 20:33 | Emergency Department Note ---
Impression & Plan Osteomyelitis of fifth toe of left foot, Diabetic foot ulcer with osteomyelitis, Elevated erythrocyte sedimentation rate, CRP elevated, Elevated lactic acid level ED Provider Note NAME: [address] AGE: 71 SEX: M ARRIVES VIA: Walk-In INFORMANT: Patient ED PROVIDER(S): Sarbjit Baires MD CHIEF COMPLAINT: Infected diabetic foot ulcer. PLAN: Disposition: Home MEDICAL DECISION MAKING: The patient is a pleasant 71-year-old gentleman with a past medical history of diabetes, polyneuropathy, chronic diabetic foot ulcers, hypertension, hyperlipidemia, BPH who presents to the emergency department, accompanied by his for evaluation of rapidly developing redness, swelling of his left foot in the setting of worsening plantar diabetic foot ulcer. Patient reports that he noticed the redness and slight pain beginning yesterday. 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 He reports he does not check his blood sugars daily and so is not sure what his blood sugars have been running. He notes his most recent hemoglobin A1c was 6.5. He denies any fevers, chills, cough, congestion, GI or symptoms. On arrival patient is no distress, afebrile with HR 110s and otherwise stable vital signs. On exam the patient has a tunneling fifth MTP plantar diabetic foot ulcer which was cultured with a swab and is pending. He has erythema warmth extending to the dorsal aspect of the foot and progressing proximally. He has no significant tenderness to palpation but in setting of his neuropathy. WBC and platelets within normal limits. H/H approximate to prior range of va lues. Chemistry without metabolic acidosis. Lactic acid slightly elevated initially at 2.5 improving to 1.8 LFTs without significant abnormality. Procalcitonin is not significantly elevated. ESR and CRP are elevated at 48 and 13, respectively. UA without convincing evidence of infection. COVID-19 RNA, HUMA test was negative. Plain films of the left foot demonstrates fifth metatarsal phalangeal joint dislocation without underlying evidence of fracture which given the patient's lack of pain is suspected to be chronic and does correlate with the patient's severe plantar foot ulcer. There is no radiographic evidence to suggest osseous erosion. Given the patient's rapidly developing cellulitis with diabetic foot ulcer concern for osteomyelitis he was treated empirically with Zosyn and daptomycin. Additionally, the patient was given 30 cc/kg of IV fluids The patient and his at the bedside agree with plan for admission for further management. Case was discussed with STEFANIE Jordan PAC with JUAN ANTONIO Vaughn hospitalist, who will evaluate the patient for admission. Triage Nursing notes reviewed and agree them. Prior medical records reviewed Vital Signs: reviewed and remarkable for tachycardia. Differential diagnosis: Cellulitis, abscess, MRSA infection, DVT, necrotizing fasciitis, dermatitis, drug eruption, allergic reaction, as well as other pathologies. ER treatment provided: See below. Diagnostics interpreted by me: ECG: Normal sinus rhythm, 83 bpm, no ectopy, no overt ST elevation or depression, QTC 425, QRS 76. Cardiac Monitoring: An order for continuous cardiac monitoring was placed and demonstrated normal sinus rhythm, 83 bpm, no ectopy. Laboratory studies: See below Imaging studies: See below Consultation(s): STEFANIE Jordan PAC with STEFANIE Vaughn hospitalist HPI: The patient is a pleasant 71-year-old gentleman with a past medical history of diabetes, polyneuropathy, chronic diabetic foot ulcers, hypertension, hyperlipidemia, BPH who presents to the emergency department, accompanied by his for evaluation of rapidly developing redness, swelling of his left foot in the setting of worsening plantar diabetic foot ulcer. Patient reports that he noticed the redness and slight pain beginning yesterday. 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 He reports he does not check his blood sugars daily and so is not sure what his blood sugars have been running. He notes his most recent hemoglobin A1c was 6.5. He denies any fevers, chills, cough, congestion, GI or symptoms. ROS: See above HPI for pertinent positives & negatives. A total of 10 systems reviewed and were otherwise negative. VITALS:See Below PHYSICAL EXAMINATION: GENERAL: Awake, alert, well-appearing, in no distress HENT: Normocephalic, atraumatic. Oropharynx with dry mucous membranes and otherwise unremarkable. EYES: Normal conjunctiva. Sclera non-icteric. NECK: Supple. No nuchal rigidity. FROM. No JVD. RESPIRATORY: Clear to auscultation. CARDIAC: Tachycardic rate, normal rhythm. Extremities warm and well perfused. Pulses equal. ABDOMEN: Soft, non-distended. No tenderness to palpation. No rebound or guarding. No masses. RECTAL: Deferred. MUSCULOSKELETAL: Chest examination reveals no tenderness. The back is symmetrica l on inspection without obvious abnormality. There is no CVA tenderness to palpation. Tunneling fifth MTP plantar diabetic foot ulcer. Erythema warmth extending to the dorsal aspect of the foot and progressing proximally. He has no significant tenderness to palpation but in setting of his neuropathy. Additional left great toe plantar MTP ulcer and Right 1st and 5th MTP plantar ulcers noted. LOWER EXTREMITIES: Calves are equal size bilaterally and non-tender. NEURO: Normal sensorium. No sensory or motor deficits noted. SKIN: No rash or jaundice noted. ED COURSE: Critical Care: I have personally spent greater than 35 minutes of critical care time in the direct management of this patient. This includes bedside care, interpretation of diagnostic studies, and testing, discussion with consultants, patient, and family members, and other required patient management activities. This 35 minutes is in excess of all separately billable procedures. Sarbjit Baires MD Past Med/Surg History Medical History DM type 2 (diabetes mellitus, type 2) History of sleep apnea resolved after wt loss Slow to wake up after anesthesia Surgical History History of biopsy skin History of cataract surgery History of tooth extraction S/P correction of deviated nasal septum Family History Mother , age 94 Primary cancer of orbit Father , age 62 of lung cancer Lung cancer Other No family history of adverse response to anesthesia No family history of bleeding disorder Social History Smoking Status: Never smoker Second Hand Exposure: No; Do You Dip or Chew Tobacco: No; Tobacco Cessation Education Requested by Patient: No Hx Alcohol Use: No Hx Substance Use: No Preferred Language: American Communication Ability: Effective Supervisor Treating And Pumping Required: No Beliefs That Will Affect Care: None marital status: Current Living Situation: Spouse current occupational status: employed 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 Other Information That Helps Us Care for You: No Feels Safe at Home: Yes Safety Concerns: Feels Safe At This Time Childhood Exposure to Second-Hand Smoke: Yes caffeine: Yes Dental Care, Regularly: No Physical Activity Frequency: Daily Seatbelt Use: always Sunscreen Use: No Assistive Devices: None Allergies Allergies Allergy/AdvReac Type Severity Reaction Status Date / Time No Known Allergies Allergy Verified 11/18/21 16:01 Home Meds Home Medications Medication Instructions Recorded Confirmed multivitamin 1 tab PO QAM 12/28/20 11/18/21 acetaminophen-caffeine 500 mg-65 1 tab PO DIRECTED PRN HEADACHES 11/18/21 11/18/21 mg tablet (Excedrin Tension Headache) meclizine 25 mg tablet 25 mg PO TID PRN Dizziness 11/18/21 11/18/21 Previous Rx's Medication Instructions Recorded metformin 1,000 mg tablet 1,000 mg PO BID #60 tabs 05/22/21 sildenafil 100 mg tablet 100 mg PO DAILY PRN sexual 05/22/21 activity #30 tabs Results & Data (ED) Vital Signs Vital Signs - 24 hr 11/18/21 13:31 11/18/21 13:50 11/18/21 14:54 Temperature 36.8 C Temperature Source Temporal Artery Scan Pulse Rate 115 H 120 H Pulse Rate [Left Finger] 118 H Pulse Rhythm Regular Pulse Rhythm [Left Finger] Regular Pulse Strength [Left Finger] Normal Respiratory Rate 19 22 22 Respiratory Effort / Characteristics Non-Labored Non-Labored Respiratory Depth Normal Blood Pressure 143/88 H Blood Pressure [Right Arm] 144/88 H Blood Pressure Mean 106 Blood Pressure Mean [Right Arm] 106 Blood Pressure Position [Right Arm] Semi-fowlers Pulse Oximetry 97 98 98 Oxygen Delivery Method Room Air Room Air Room Air Sepsis Recent Fever Within 48 Hours No Sepsis New/Unexplained Change in Mental Status N/A Sepsis Action Taken by Nursing No Action Required 11/18/21 14:54 11/18/21 14:20 11/18/21 16:00 Temperature 37.4 C Temperature Source Oral Pulse Rate Pulse Rate [Left Finger] 83 Pulse Rhythm Pulse Rhythm [Left Finger] Pulse Strength [Left Finger] Respiratory Rate 22 22 Respiratory Effort / Characteristics Non-Labored Respiratory Depth Normal Blood Pressure Blood Pressure [Right Arm] 144/88 H 133/84 Blood Pressure Mean Blood Pressure Mean [Right Arm] 106 100 Blood Pressure Position [Right Arm] Pulse Oximetry 98 98 Oxygen Delivery Method Room Air Room Air Sepsis Recent Fever Within 48 Hours Sepsis New/Unexplained Change in Mental Status Sepsis Action Taken by Nursing 11/18/21 16:00 Temperature Temperature Source Pulse Rate Pulse Rate [Left Finger] Pulse Rhythm Pulse Rhythm [Left Finger] Pulse Strength [Left Finger] Respiratory Rate 22 Respiratory Effort / Characteristics Non-Labored Respiratory Depth Blood Pressure Blood Pressure [Right Arm] Blood Pressure Mean Blood Pressure Mean [Right Arm] Blood Pressure Position [Right Arm] Pulse Oximetry 97 Oxygen Delivery Method Room Air Sepsis Recent Fever Within 48 Hours Sepsis New/Unexplained Change in Mental Status Sepsis Action Taken by Nursing Laboratory Data Attestation: I reviewed the patient's lab results. Result diagrams: 11/18/21 14:20 11/18/21 14:20 Lab Results 11/18/21 11/18/21 11/18/21 Range/Units 14:20 14:20 14:20 WBC 7.61 (4.8-10.8) K/ul RBC 4.29 L (4.63-6.08) M/uL Hgb 12.2 L (14.0-18.0) g/dl Hct 36.0 L (40.1-51.0) % MCV 83.9 (80.0-100.0) fL MCH 28.4 (25.0-34.0) pg MCHC 33.9 (32.0-36.0) g/dL RDW Std Deviation 35.9 L (36.4-46.3) fL RDW Coeff of Yareli 11.9 (11.5-14.5) % Plt Count 207 (130-400) K/uL MPV 9.4 (9.4-12.4) fL Immature Gran % (Auto) 0.3 % Neut % (Auto) 78.4 % Lymph % (Auto) 7.1 % Dooly % (Auto) 11.6 % Eos % (Auto) 2.2 % Baso % (Auto) 0.4 % Neut # (Auto) 5.97 (1.4-6.5) K/uL Lymph # (Auto) 0.54 L (1.2-3.4) K/uL Dooly # (Auto) 0.88 H (0.24-0.82) K/uL Eos # (Auto) 0.17 (0-0.50) K/uL Baso # (Auto) 0.03 (0-0.2) K/uL Immature Gran # (Auto) 0.02 (0.00-0.02) K/uL ESR 48 H (0-20) mm/hr PT 10.6 (9.0-12.0) Seconds INR 1.0 (0.9-1.1) APTT 31.6 H (21.0-31.0) Seconds PTT Ratio 1.1 Sodium (136-145) mmol/L Potassium (3.5-5.1) mmol/L Chloride (98-107) mmol/L Carbon Dioxide (21-32) mmol/L Anion Gap (3-11) BUN (6-23) mg/dl Creatinine (0.6-1.4) mg/dl Est Cr Clr Drug Dosing ml/min Est GFR ( Amer) ml/min Est GFR (Non-Af Amer) ml/min BUN/Creatinine Ratio (10-20) Glucose (70-99(Fasting)) mg/dl Lactate (0.4-2.0) mmol/L Calcium (8.5-10.1) mg/dl Magnesium (1.7-2.4) mg/dl Total Bilirubin (0.2-1.0) mg/dl AST (13-39) U/L ALT (7-52) U/L Alkaline Phosphatase (34-104) U/L C-Reactive Protein (0-0.5) mg/dl Total Protein (6.0-8.3) gm/dl Albumin (3.4-5.0) gm/dl Globulin (2.5-4.0) gm/dl Albumin/Globulin Ratio (0.9-2) Procalcitonin (0-0.5) ng/ml SARS-CoV-2, RNA, NAAT (NEGATIVE) 11/18/21 11/18/21 11/18/21 Range/Units 14:20 14:20 14:20 WBC (4.8-10.8) K/ul RBC (4.63-6.08) M/uL Hgb (14.0-18.0) g/dl Hct (40.1-51.0) % MCV (80.0-100.0) fL MCH (25.0-34.0) pg MCHC (32.0-36.0) g/dL RDW Std Deviation (36.4-46.3) fL RDW Coeff of Yareli (11.5-14.5) % Plt Count (130-400) K/uL MPV (9.4-12.4) fL Immature Gran % (Auto) % Neut % (Auto) % Lymph % (Auto) % Dooly % (Auto) % Eos % (Auto) % Baso % (Auto) % Neut # (Auto) (1.4-6.5) K/uL Lymph # (Auto) (1.2-3.4) K/uL Dooly # (Auto) (0.24-0.82) K/uL Eos # (Auto) (0-0.50) K/uL Baso # (Auto) (0-0.2) K/uL Immature Gran # (Auto) (0.00-0.02) K/uL ESR (0-20) mm/hr PT (9.0-12.0) Seconds INR (0.9-1.1) APTT (21.0-31.0) Seconds PTT Ratio Sodium 134 L (136-145) mmol/L Potassium 4.7 (3.5-5.1) mmol/L Chloride 99 (98-107) mmol/L Carbon Dioxide 27 (21-32) mmol/L Anion Gap 8 (3-11) BUN 18 (6-23) mg/dl Creatinine 1.19 (0.6-1.4) mg/dl Est Cr Clr Drug Dosing 66.2 ml/min Est GFR ( Amer) 71.8 ml/min Est GFR (Non-Af Amer) 62.0 ml/min BUN/Creatinine Ratio 15.1 (10-20) Glucose 227 H (70-99(Fasting)) mg/dl Lactate 2.4 H* (0.4-2.0) mmol/L Calcium 9.7 (8.5-10.1) mg/dl Magnesium 1.7 (1.7-2.4) mg/dl Total Bilirubin 0.4 (0.2-1.0) mg/dl AST 10 L (13-39) U/L ALT 7 (7-52) U/L Alkaline Phosphatase 73 (34-104) U/L C-Reactive Protein 13.10 H (0-0.5) mg/dl Total Protein 7.4 (6.0-8.3) gm/dl Albumin 3.9 (3.4-5.0) gm/dl Globulin 3.5 (2.5-4.0) gm/dl Albumin/Globulin Ratio 1.1 (0.9-2) Procalcitonin 0.08 (0-0.5) ng/ml SARS-CoV-2, RNA, NAAT (NEGATIVE) 11/18/21 Range/Units 14:40 WBC (4.8-10.8) K/ul RBC (4.63-6.08) M/uL Hgb (14.0-18.0) g/dl Hct (40.1-51.0) % MCV (80.0-100.0) fL MCH (25.0-34.0) pg MCHC (32.0-36.0) g/dL RDW Std Deviation (36.4-46.3) fL RDW Coeff of Yareli (11.5-14.5) % Plt Count (130-400) K/uL MPV (9.4-12.4) fL Immature Gran % (Auto) % Neut % (Auto) % Lymph % (Auto) % Dooly % (Auto) % Eos % (Auto) % Baso % (Auto) % Neut # (Auto) (1.4-6.5) K/uL Lymph # (Auto) (1.2-3.4) K/uL Dooly # (Auto) (0.24-0.82) K/uL Eos # (Auto) (0-0.50) K/uL Baso # (Auto) (0-0.2) K/uL Immature Gran # (Auto) (0.00-0.02) K/uL ESR (0-20) mm/hr PT (9.0-12.0) Seconds INR (0.9-1.1) APTT (21.0-31.0) Seconds PTT Ratio Sodium (136-145) mmol/L Potassium (3.5-5.1) mmol/L Chloride (98-107) mmol/L Carbon Dioxide (21-32) mmol/L Anion Gap (3-11) BUN (6-23) mg/dl Creatinine (0.6-1.4) mg/dl Est Cr Clr Drug Dosing ml/min Est GFR ( Amer) ml/min Est GFR (Non-Af Amer) ml/min BUN/Creatinine Ratio (10-20) Glucose (70-99(Fasting)) mg/dl Lactate (0.4-2.0) mmol/L Calcium (8.5-10.1) mg/dl Magnesium (1.7-2.4) mg/dl Total Bilirubin (0.2-1.0) mg/dl AST (13-39) U/L ALT (7-52) U/L Alkaline Phosphatase (34-104) U/L C-Reactive Protein (0-0.5) mg/dl Total Protein (6.0-8.3) gm/dl Albumin (3.4-5.0) gm/dl Globulin (2.5-4.0) gm/dl Albumin/Globulin Ratio (0.9-2) Procalcitonin (0-0.5) ng/ml SARS-CoV-2, RNA, NAAT NEGATIVE (NEGATIVE) Administered Medications Enoxaparin Sodium (Enoxaparin Inj 40 Mg/0.4 Ml Syr) 40 mg SQ Q24H LÓPEZ Stop: 12/18/21 20:59 Last Admin: 11/18/21 21:07 Dose: 40 mg Documented By: MAURILIO Lactated Ringer's (Lr) 1,000 mls @ 100 mls/hr IV .Q10H LÓPEZ Stop: 11/19/21 05:29 Last Admin: 11/18/21 19:42 Dose: 100 mls/hr Documented By: MAURILIO Piperacillin Sod/Tazobactam (Sod 3.375 gm/ Dextrose) 115 mls @ 28.75 mls/hr IV Q8H LÓPEZ; Protocol Stop: 11/25/21 20:59 Last Infusion: 11/19/21 01:59 Dose: 0 mls/hr Documented By: Admin: 11/18/21 21:08 Dose: 28.8 mls/hr Documented By: MAURILIO Insulin Aspart (Insulin Aspart Per Unit) 0 units SC ACHS LÓPEZ Stop: 12/18/21 20:59 Last Admin: 11/18/21 21:08 Dose: 1 units Documented By: MAURILIO Co-signed By: HILLARY Discontinued Medications Gadobutrol (Gadobutrol 65ml Vial) 8 ml IV ONCE ONE Stop: 11/18/21 17:21 Last Admin: 11/18/21 17:21 Dose: 8 ml Documented By: ROGERS Piperacillin Sod/Tazobactam (Sod 4.5 gm/ Dextrose) 120 mls @ 200 mls/hr IV NOW ONE; Protocol Stop: 11/18/21 14:36 Last Infusion: 11/18/21 15:56 Dose: 200 mls/hr Documented By: Admin: 11/18/21 14:47 Dose: 200 mls/hr Documented By: VAP Daptomycin 475 mg/ Syringe 9.5 mls @ 4.75 mls/min IV NOW STA; Protocol Stop: 11/18/21 14:02 Last Admin: 11/18/21 16:16 Dose: 4.75 mls/min Documented By: VAP Sodium Chloride (Nss 1000ml) 1,000 mls @ 999 mls/hr IV .Q1H1M LÓPEZ Stop: 11/18/21 15:04 Last Infusion: 11/18/21 20:02 Dose: 0 mls/hr Documented By: Admin: 11/18/21 15:52 Dose: 999 mls/hr Documented By: VAP Sodium Chloride (Nss 1000ml) 1,000 mls @ 999 mls/hr IV .Q1H1M LÓPEZ Stop: 11/18/21 16:14 Last Infusion: 11/18/21 15:53 Dose: 999 mls/hr Documented By: Admin: 11/18/21 14:49 Dose: 999 mls/hr Documented By: VAP Sodium Chloride (Nss 1000ml) 500 mls @ 999 mls/hr IV .Q31M [facility] Stop: 11/18/21 16:45 Last Infusion: 11/18/21 19:10 Dose: 0 mls/hr Documented By: Infusion: 11/18/21 18:38 Dose: 999 mls/hr Documented By: Admin: 11/18/21 18:16 Dose: 999 mls/hr Documented By: VAP Imaging Data Radiologist's Impression: Foot MRI 11/18/21 16:12 MR foot LT wo/w con CLINICAL HISTORY: left foot ulcer, r/o osteomyelitis TECHNIQUE: Multiplanar multisequence MR images of the left foot were obtained. Comparison: Comparison is made to left foot radiograph 11/18/2021 FINDINGS: Bones: Again noted is a dislocation of the fifth digit metatarsal phalangeal joint. There is extensive bony edema in the fifth metatarsal and to a lesser extent in the proximal phalanx. There is an approximately 15 mm T2 hyperintense, T1 rim-enhancing hypointense focus at the metatarsophalangeal joint. Soft tissue: Extensive soft tissue edema is seen most prominent in the lateral aspect of the foot. Apart from the above findings, no drainable fluid collections are definitely seen. IMPRESSION: Findings are compatible with osteomyelitis of the fifth metatarsal and proximal phalanx with dislocation and likely septic arthritis of the metatarsophalangeal joint versus less likely adjacent abscess. Surrounding cellulitis is noted. ACT 112: Negative or not required by law. Electronically signed by: Luis Turner M.D. 11/18/2021 6:12 PM Discharge Plan Visit Data Chief Complaint: Foot Injury/Pain Stated Complaint: L FOOT ULCER, TURNING RED AND PURPLE ED Provider: Sarbjit Baires Discharge Problem: Osteomyelitis of fifth toe of left foot, Diabetic foot ulcer with osteomyelitis, Elevated erythrocyte sedimentation rate, CRP elevated, Elevated lactic acid level Patient Disposition: Admitted As Inpatient Discharge Instructions Interventions: ED Discharge Assessment Last Done: 11/18/21 18:32
[2021-11-18] MEDS: ENOXAPARIN INJ 40 MG/0.4 ML SYR SQ SCH (21:07)
[2021-11-18] MEDS: PIPERACILLIN/TAZOBACTAM 3.375 GM in DEXTROSE 5% 100 ML IV SCH (21:08)
[2021-11-18] MEDS: INSULIN ASPART PER UNIT SC SCH (21:08)
[2021-11-19] MEDS: PIPERACILLIN/TAZOBACTAM 3.375 GM in DEXTROSE 5% 100 ML IV SCH ×3 (04:56→20:41)
--- NOTE | 2021-11-19 07:27 | Electrocardiogram Report ---
Test Reason : Blood Pressure : / mmHG Vent. Rate : 083 BPM Atrial Rate : 083 BPM P-R Int : 178 ms QRS Dur : 076 ms QT Int : 362 ms P-R-T Axes : 055 050 046 degrees QTc Int : 425 ms Normal sinus rhythm When compared with ECG of 19-APR-2021 15:11, No significant change was found Confirmed by Jose Alvarado ([id number]) on 11/19/2021 7:26:50 AM Referred By: REFERRED SELF Confirmed By:Adam Alvarado
[2021-11-19 07:42] LABS: Basophils # (auto) 0.02 K/uL (0-0.2); Basophils % (auto) 0.5 %; Eosinophils # (auto) 0.14 K/uL (0-0.50); Eosinophils % (auto) 3.7 %; Hematocrit (blood only) 29.3 % (40.1-51.0); Hemoglobin 9.9 g/dl (14.0-18.0); Immature Granulocytes # (auto) 0.01 K/uL (0.00-0.02); Immature Granulocytes % (auto) 0.3 %; Lymphocytes # (auto) 0.45 K/uL (1.2-3.4); Lymphocytes % (auto) 11.8 %; Mean Corpuscular Hemoglobin 28.3 pg (25.0-34.0); Mean Corpuscular Hgb Conc 33.8 g/dL (32.0-36.0); Mean Corpuscular Volume 83.7 fL (80.0-100.0); Mean Platelet Volume 9.3 fL (9.4-12.4); Monocytes % (auto) 15.8 %; Neutrophils # (auto) 2.58 K/uL (1.4-6.5); Neutrophils % (auto) 67.9 %; Platelet Count 169 K/uL (130-400); RDW Coefficient of Variation 12.1 % (11.5-14.5); RDW Standard Deviation 36.7 fL (36.4-46.3)
[2021-11-19 08:12] LABS: BUN Creatinine Ratio 14.5 (10-20); C Reactive Protein 10.48 mg/dl (0-0.5); Calcium 8.6 mg/dl (8.5-10.1); Creatinine Clr Calc Pharmacy 94.9 ml/min; Est GFR (African American) 104.1 ml/min; Est GFR (Non-African American) 89.8 ml/min; Potassium 3.7 mmol/L (3.5-5.1)
[2021-11-19] MEDS: INSULIN ASPART PER UNIT SC SCH ×4 (08:36→21:29)
[2021-11-19 08:49] LABS: Estimated Average Glucose 131 mg/dl; Hemoglobin A1C 6.2 % (4.5-5.6)
--- NOTE | 2021-11-19 09:18 | Orthopedic Consultation ---
Date of Consultation November 19, 2021 Assessment & Plan (1) Diabetic foot ulcer with osteomyelitis: -Patient seen and examined at bedside with attending Dr. Simpson -Weightbearing as tolerated bilateral lower extremity -Recommend continue local wound care as well as antibiotic coverage -Recommend consulting his eating disorder specialist Dru Warner for definitive surgical treatment. Informed patient that he is likely going to need surgery to eradicate this infection. -Recommendations were discussed with patient. Patient asked appropriate questions and all questions were answered with the patient expressing satisfaction. History of Present Illness Reason for Consultation: Foot ulceration with concern for osteomyelitis Attending Physician: Axel Painter MD History of Present Illness Patient is a 71-year-old male with left foot redness and ulcerations. Patient states that this has been a chronic issue for him over the past several years. He notes that he has not seen his eating disorder specialist in approximately 3 years. Per patient, he states his left foot first became red and painful 3 days ago without any acute traumatic event. He states this redness was located through his second through fifth toes as well as extending proximally up the lateral side of his foot. He states since his admission this erythema has reduced significantly and is now nearly absent from his second through fourth phalanx. Patient denies any fevers or chills or tenderness in his calf. Of note, patient is a type II diabetic with peripheral neuropathy extending up to his ankles. Allergies Allergy/AdvReac Type Severity Reaction Status Date / Time No Known Allergies Allergy Verified 11/18/21 16:01 Home Medications Medication Instructions Recorded Confirmed Type multivitamin 1 tab PO QAM 12/28/20 11/18/21 History metformin 1,000 mg tablet 1,000 mg PO BID #60 tabs 05/22/21 11/18/21 Rx sildenafil 100 mg tablet 100 mg PO DAILY PRN sexual 05/22/21 11/18/21 Rx activity #30 tabs acetaminophen-caffeine 500 mg-65 1 tab PO DIRECTED PRN HEADACHES 11/18/21 11/18/21 History mg tablet (Excedrin Tension Headache) meclizine 25 mg tablet 25 mg PO TID PRN Dizziness 11/18/21 11/18/21 History Patient History Medical History DM type 2 (diabetes mellitus, type 2) History of sleep apnea resolved after wt loss Slow to wake up after anesthesia Surgical History History of biopsy skin History of cataract surgery History of tooth extraction S/P correction of deviated nasal septum Family History Mother , age 94 Primary cancer of orbit Father , age 62 of lung cancer Lung cancer Other No family history of adverse response to anesthesia No family history of bleeding disorder Social History Smoking Status: Never smoker Second Hand Exposure: No; Do You Dip or Chew Tobacco: No; Tobacco Cessation Education Requested by Patient: No Hx Alcohol Use: No Hx Substance Use: No Preferred Language: Nauruan Communication Ability: Effective Metal 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 Required: No Beliefs That Will Affect Care: None marital status: Current Living Situation: Spouse current occupational status: employed 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 Other Information That Helps Us Care for You: No Feels Safe at Home: Yes Safety Concerns: Feels Safe At This Time Childhood Exposure to Second-Hand Smoke: Yes caffeine: Yes Dental Care, Regularly: No Physical Activity Frequency: Daily Seatbelt Use: always Sunscreen Use: No Assistive Devices: None Review of Systems Review of Systems: All systems reviewed & are unremarkable except as noted in HPI & below Constitutional: no fever and no chills Respiratory: no dyspnea and no pain on inspiration Cardiovascular: no chest pain Gastrointestinal: no abdominal pain Integumentary: + skin ulcer Neurologic: + loss of sensation; no tingling Psychiatric: no confusion Physical Exam Physical Exam: General: no acute distress, pleasant and cooperative Left lower extremity: Approximately 1 cm ulceration noted on the plantar aspect of his foot over the fifth metatarsal head extends deep into the soft tissue with minimal drainage noted, well visualized pressure sore noted over first metatarsal head, mild erythema along dorsal and lateral aspect of foot that does not extend up into the ankle, sensation intact to light touch to all toes although diminished per patient's baseline peripheral neuropathy, able to flex and extend all toes without pain, no tenderness palpation about his calf Results & Data ([facility]) Vital Signs (Past 12 Hours) Vital Signs Temp Pulse Resp BP Pulse Ox O2 Del Method 11/19/21 07:43 36.9 C 71 18 121/75 97 Room Air 11/18/21 21:22 36.9 C 85 16 125/74 98 Room Air Diagnostic Findings Left foot x-rays performed 11/18/2021 demonstrates soft tissue swelling lateral to the fifth MTP joint. Foot MRI performed 11/18/2021 demonstrates evidence of osteomyelitis of fifth metatarsal with abscess.
[2021-11-19] MEDS ORDERED: BENZONATATE 100 MG CAPSULE PO PRN (13:07)
--- NOTE | 2021-11-19 13:09 | Hospitalist Progress Note ---
Date of Service November 19, 2021 Assessment & Plan (1) Foot ulcer, left: Plan: - Diabetic foot ulcer vs osteomyelitis. - Ulcers have been present for 4-5 years, patient attributes them to back injury several years ago which is disrupted distribution of weight on this foot. He is to follow-up with podiatry, has not seen them in 2 years as symptoms were getting better at that point he did not feel it was necessary. - ESR and CRP elevated, lactate 2.4, without elevated WBC or PCT. - Place empirically on dapto and Zosyn for broad spectrum coverage. - Tailor to blood and wound cultures as they become available. - Wound care consulted, appreciate assistance - A1c in Am, patient has elevated glucose, 227 on BMP. He does not ever check sugars at home. Last A1c in 6.7%, recheck tomorrow. - Will need tight control of sugars to promote wound healing. - Evidence of osteomyelitis of 5th MT and proximal phalanx with dislocation and likely septic arthritis of the MTJ versus adjacent abscess * Consulted [facility] ortho who advised podiatry consult. However, pt hasn't been seen by podiatry in 3 years * Discussed with Dr. Hagan, he will seen in consult tomorrow. D/c podiatry consult. Make NPO after MN * Patient will likely need 6 weeks of IV abx, picc line insertion. Hopefully intraoperative cultures will provide specific data on bacteria so that abx can be tailored. However, possible that by the time cultures are collected, may be sterilized. Continue broad spectrum abx for now. (2) DM type 2 (diabetes mellitus, type 2): Plan: - Home regimen includes metformin 1000 mg BID. Will hold while patient. - Accu-Cheks ACH S with sliding scale insulin. - A1c 6.2% reflecting great control (3) History of sleep apnea: Plan: - Elevated RVSP 30 -40 mmHg on Echo in Apr as part od CVA workup (final diagnosis Menier's dz) - Was evaluated for YUMIKO as outpatient, per patient has resolved with weight loss. (4) Meniere disease: Plan: - Continue meclizine prn. Plan Re: cough, suspect viral rhinitis with post nasal drip. Ordered Mucinex and Tessalon PRN. Hold Lovenox 11/20 in AM and made NPO - consult Dr. Hagan, appreciate assistance AM labs Plan d/w Dr. Painter. Admission and Anticipated Discharge Date Admission Date: November 18, 2021 Subjective Patient seen on daily rounds this morning. He was hospitalized due to worsening diabetic L foot ulcer. 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 He has been having ongoing issues with this wound but seems to acutely worsened over the past couple of days. Pain presently controlled, no fever/chills. Has a slight cough, states that he has some head congestion. Was negative for COVID. Asking for something for his cough. Seen by [facility] orthopedics today who advised consulting podiatry re: his foot. Review of Systems Review of Systems: All systems reviewed and are unremarkable except as noted in HPI and below. Denies fever, chills, fatigue, headache, nasal congestion, sore throat, cough, chest pain, shortness of breath, palpitations, orthopnea, PND, abdominal pain, n/v/d, constipation, dysuria, hematuria, frequency, back pain, joint pain or swelling, easy bruising or bleeding. Physical Exam Physical Exam: GENERAL: 71 yo Well-developed, well-nourished WM. NAD. LUNGS: Clear to auscultation bilaterally. No W/R/R. CARDIOVASCULAR: Regular rate and rhythm. ABDOMEN: Soft, non-tender and non-distended. BS normoactive x 4 quad. EXTREMITIES: No edema. Non-tender. Peripheral pulses +2/4. NEUROLOGIC: A&O x3. Non focal PSYCHIATRIC: Cooperative. Appropriate mood and affect. SKIN: Warm, dry, intact. L foot dressed and wrapped in aubree. R foot partially wrapped in aubree. Results & Data Results & Data ([facility]) Vital Signs (Past 12 Hours) Vital Signs Temp Pulse Resp BP Pulse Ox O2 Del Method 11/19/21 08:56 Room Air 11/19/21 07:43 36.9 C 71 18 121/75 97 Room Air Laboratory Results 11/19/21 07:01 11/19/21 07:01 PG Care Time/CCT Total # of Minutes Spent Total Time Spent with Patient: Total time spent is greater than 50% in coordination of care (as documented) at patient's floor/unit and/or counseling patient: Coding Level of Care Code 50128 Subseq Hosp Care Lvl 2 Diagnoses Foot ulcer, left L97.529 DM type 2 (diabetes mellitus, type 2) E11.9 History of sleep apnea Z86.69 Meniere disease H81.09
[2021-11-19] MEDS ORDERED: DAPTOmycin 325 MG in SYRINGE 0 ML IV SCH (16:00)
[2021-11-19] MEDS: ACETAMINOPHEN 500 MG TAB PO PRN (19:51)
[2021-11-19] MEDS: guaiFENesin 600 MG TABCR PO SCH (20:41)
[2021-11-19] MEDS: POLYETHYLENE (MIRALAX) 17 GM PACK PO PRN (20:41)
[2021-11-20] MEDS: PIPERACILLIN/TAZOBACTAM 3.375 GM in DEXTROSE 5% 100 ML IV SCH ×3 (04:50→21:04)
[2021-11-20 06:11] LABS: Basophils # (auto) 0.02 K/uL (0-0.2); Basophils % (auto) 0.5 %; Eosinophils # (auto) 0.17 K/uL (0-0.50); Eosinophils % (auto) 4.2 %; Hematocrit (blood only) 32.5 % (40.1-51.0); Hemoglobin 10.9 g/dl (14.0-18.0); Immature Granulocytes # (auto) 0.01 K/uL (0.00-0.02); Immature Granulocytes % (auto) 0.2 %; Lymphocytes # (auto) 0.67 K/uL (1.2-3.4); Lymphocytes % (auto) 16.7 %; Mean Corpuscular Hemoglobin 27.8 pg (25.0-34.0); Mean Corpuscular Hgb Conc 33.5 g/dL (32.0-36.0); Mean Corpuscular Volume 82.9 fL (80.0-100.0); Mean Platelet Volume 9.1 fL (9.4-12.4); Monocytes # (auto) 0.76 K/uL (0.24-0.82); Monocytes % (auto) 18.9 %; Neutrophils # (auto) 2.39 K/uL (1.4-6.5); Neutrophils % (auto) 59.5 %; Platelet Count 191 K/uL (130-400); RDW Coefficient of Variation 11.9 % (11.5-14.5); RDW Standard Deviation 36.6 fL (36.4-46.3); Red Blood Count 3.92 M/uL (4.63-6.08); White Blood Count 4.02 K/ul (4.8-10.8)
[2021-11-20 06:43] LABS: BUN Creatinine Ratio 12.9 (10-20); Creatinine Clr Calc Pharmacy 84.7 ml/min; Est GFR (African American) 96.7 ml/min; Est GFR (Non-African American) 83.5 ml/min; Potassium 3.7 mmol/L (3.5-5.1)
[2021-11-20] MEDS ORDERED: Nursing to Pharmacy Communication SCH ×2 (07:45→09:30)
[2021-11-20] MEDS: INSULIN ASPART PER UNIT SC SCH ×3 (07:57→21:48)
[2021-11-20] MEDS: guaiFENesin 600 MG TABCR PO SCH ×2 (09:03→21:04)
--- NOTE | 2021-11-20 11:28 | Orthopedic Consultation ---
Date of Consultation November 20, 2021 Assessment & Plan (1) Diabetic foot ulcer with osteomyelitis: Left foot diabetic ulcer at the fifth MTP joint with septic arthritis. Plain films and MRI reviewed. No obvious bony erosions noted. Osteopenia noted. Edema of the fifth metatarsal consistent with osteomyelitis per radiology. Likely septic arthritis of the fifth MTP joint. ESR/CRP elevated on admit. 48/13 Original cellulitis is resolving and coalescing down around the fifth MTP joint. Patient will require irrigation and debridement of the ulcer. I will discuss the case with Dr. Hagan. Patient will require fifth metatarsal bony resection. Continue IV antibiotics, elevation of the left lower extremity, daily dressing changes for now. Heel weightbearing only on left foot. I have discussed this with the patient and answered all questions. Plan for evacuation abscess, subtotal resection fifth metatarsal and irrigation debridement tomorrow with Dr. Hagan. History of Present Illness Reason for Consultation: Left fifth MTP joint septic arthritis; likely osteomyelitis of fifth metatarsal Attending Physician: Axel Painter MD History of Present Illness Patient is a 71-year-old male with past medical history significant for DM2, BPH, hypertension, idiopathic neuropathy, Meniere's disease, sleep apnea who was admitted to the hospital several days ago with a draining ulcer over the lateral fifth MTP joint and a moderate cellulitis of the left foot. Patient states that he has had several diabetic foot ulcers over the years of the left and right foot of which he and his have taken care of along with some podiatry visits in the past. He apparently has not seen any photographer still in the last few years. Patient states that he has had this small area in question over the fifth MTP joint as well as one on the plantar surface of his foot by the first MTP joint on the plantar surface. Late last week, the patient states that the area over the fifth MTP ulceration/swelling began to have a little bit of drainage. It did not appear purulent. This began to worsen over time as they continued to try and keep dressings over the area. States that he was using a product called wound wash and then a dry dressing. The wound over the lateral left fifth MTP joint continue to worsen and he developed a cellulitis. He states he was having some pain off and on in that area. He states that with his neuropathy, he is at times unable to feel pain to certain degrees. He came into the emergency room to be seen and was thusly admitted on 11/18/2021. We have been asked to see him for his left foot wound. Allergies Allergy/AdvReac Type Severity Reaction Status Date / Time No Known Allergies Allergy Verified 11/18/21 16:01 Home Medications Medication Instructions Recorded Confirmed Type multivitamin 1 tab PO QAM 12/28/20 11/18/21 History metformin 1,000 mg tablet 1,000 mg PO BID #60 tabs 05/22/21 11/18/21 Rx sildenafil 100 mg tablet 100 mg PO DAILY PRN sexual 05/22/21 11/18/21 Rx activity #30 tabs acetaminophen-caffeine 500 mg-65 1 tab PO DIRECTED PRN HEADACHES 11/18/21 11/18/21 History mg tablet (Excedrin Tension Headache) meclizine 25 mg tablet 25 mg PO TID PRN Dizziness 11/18/21 11/18/21 History blood sugar diagnostic (OneTouch #100 ea 11/21/21 Rx Ultra Test strips) blood-glucose meter (OneTouch #1 ea 11/21/21 Rx Ultra2 Meter) lancets 33 gauge (OneTouch Delica #100 ea 11/21/21 Rx Lancets) Patient History Medical History DM type 2 (diabetes mellitus, type 2) History of sleep apnea resolved after wt loss Slow to wake up after anesthesia Surgical History History of biopsy skin History of cataract surgery History of tooth extraction S/P correction of deviated nasal septum Family History Mother , age 94 Primary cancer of orbit Father , age 62 of lung cancer Lung cancer Other No family history of adverse response to anesthesia No family history of bleeding disorder Social History Smoking Status: Never smoker Second Hand Exposure: No; Do You Dip or Chew Tobacco: No; Tobacco Cessation Education Requested by Patient: No Hx Alcohol Use: No Hx Substance Use: No Preferred Language: Belarusian Communication Ability: Effective Turkey Roll Maker Required: No Beliefs That Will Affect Care: None marital status: Current Living Situation: Spouse current occupational status: employed 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 Alert and oriented x3. No acute distress. Pleasant and cooperative. Examination of his left foot, he has an Agustin wrap with a Kerlix/dressing cur rently on. This is all removed. Patient states that his cellulitis is markedly improved over the forefoot. He also states that he has a lot of swelling that has resolved since starting on antibiotics. He continues to have some moderate erythema around an ulceration over the lateral left fifth metatarsal joint area. The ulceration itself is small, 2 cm in width with an erythematous base and has an open central portion that I can express out purulent drainage. Dried skin and peeling skin is noted around the outer edges. The drainage is minimal. It does have a foul odor. He has no pain on palpation. He still has some residual erythema that goes over the base of the toes of the fifth through third toes. He is able to move the toes well. He also has an callused area on the plantar s urface of the foot near the first MTP joint. There is no areas of bleeding noted but he does have some areas noted that appear to have bled in the past but are healing. Patient states that this has been getting better on a regular basis. Patient also has a history of ulcerations on his right foot which that time the dressings on his right foot were removed. He has ulcerations in similar areas on the right foot. He has 1 darkened area with eschar between the first and second metatarsal joints that is dry. This is approximately a centimeter and a half in length and a centimeter in width. He has 1 area over the plantar surface of the fifth MTP joint that is slightly open that has some Xeroform gauze on. There is scant bleeding noted from this on the dressing. These were both redressed with Xeroform gauze, 4 x 4's, Kerlix and Agustin wrap. The left fifth foot ulcer was covered with Aquacel Ag, 4 x 4's, Kerlix, and Agustin wrap. She does have neuropathy noted of both feet. He has a good dorsalis pedis pulse bilaterally and capillary refill is 2 seconds. Results & Data ([facility]) Vital Signs (Past 12 Hours) Vital Signs Temp Pulse Resp BP Pulse Ox O2 Del Method 11/20/21 11:21 36.6 C 87 18 137/86 95 Room Air 11/20/21 09:15 Room Air 11/20/21 07:10 36.7 C 80 18 139/84 96 Room Air Laboratory Results Name: [address] Acct: [id number] Status: ADM IN : 1950 [facility] Date: 11/18/21 Age: 71 Sex: M Dis Date: Loc: Medical/Surgical/Ortho 3 East Rm/Bed: [facility] Spec: [id number] Collected: 11/18/21-UNK Received: 11/18/21-[address]: Sarbjit Baires M.D. Source: Foot,Left OV Order: Ordered: Surf Wnd Cul/Sm Procedure Result Verified Site Gram Stain Final 11/19/21 Gram Stain Result No Epithelial Cells No WBCs Seen Many Gram Positive Cocci Many Gram Negative Bacilli Surface Wound Culture Preliminary 11/20/21-1023 Organism 1 Gram negative bacilli Quantity Rare Sens Sensitivities to Follow +MixWound Plus Low Counts of Probable Skin Tessy Diagnostic Findings Patient:[address] Admit Date:11/18/21 MR#:[id number] Address1:[address] [place] [address] Acct ID:[id number] Address2: Date:1950 [facility] Zip:[place] [address] Age:71 Location:ED Sex:M Room/Bed: Att Phy: Diagnosis:L FOOT ULCER, TURNING RED AND PURPLE Lenore Phy:Trinity Dinero MD Service Date:11/18/21 Fam Phy: Interpreting Phy:Luis Turner MDAdmit Phy: Ordering Phy:Sarbjit Baires M.D. cc: ~ XR foot LT min 3V routine CLINICAL HISTORY: diabetic ulcer, infection, eval osseous involv. TECHNIQUE: 3 views of the left foot were obtained. Comparison: None available at the time of this dictation. FINDINGS: There is a dislocation of the fifth metatarsophalangeal joint with medial displacement of the proximal phalanx. There is osteopenia without focal erosions to suggest osteomyelitis. Plantar enthesophyte is noted in the calcaneus. Soft tissue swelling is seen most prominent in the fifth metatarsophalangeal joint. There is lucency in this region compatible with reported ulcer. IMPRESSION: 1. Fifth metatarsophalangeal joint dislocation without evidence of underlying fracture. 2. Soft tissue swelling and ulcer in the fifth MTP joint region without focal osteopenia to suggest underlying erosion. If there is clinical concern for osteomyelitis, MRI is more sensitive modality. ACT 112: Negative or not required by law. MR foot LT wo/w con CLINICAL HISTORY: left foot ulcer, r/o osteomyelitis TECHNIQUE: Multiplanar multisequence MR images of the left foot were obtained. Comparison: Comparison is made to left foot radiograph 11/18/2021 FINDINGS: Bones: Again noted is a dislocation of the fifth digit metatarsal phalangeal joint. There is extensive bony edema in the fifth metatarsal and to a lesser extent in the proximal phalanx. There is an approximately 15 mm T2 hyperintense, T1 rim-enhancing hypointense focus at the metatarsophalangeal joint. Soft tissue: Extensive soft tissue edema is seen most prominent in the lateral aspect of the foot. Apart from the above findings, no drainable fluid collections are definitely seen. IMPRESSION: Findings are compatible with osteomyelitis of the fifth metatarsal and proximal phalanx with dislocation and likely septic arthritis of the metatarsophalangeal joint versus less likely adjacent abscess. Surrounding cellulitis is noted. ACT 112: Negative or not required by law.
--- NOTE | 2021-11-20 11:32 | Hospitalist Progress Note ---
Date of Service November 20, 2021 Assessment & Plan (1) Foot ulcer, left: Plan: - Diabetic foot ulcer with evidence of osteomyelitis. - Ulcers have been present for 4-5 years, patient attributes them to back injury several years ago which is disrupted distribution of weight on this foot. He is to follow-up with podiatry, has not seen them in 2 years as symptoms were getting better at that point he did not feel it was necessary. - ESR and CRP elevated, lactate 2.4, without elevated WBC or PCT. - Place empirically on dapto and Zosyn for broad spectrum coverage. - Tailor to blood and wound cultures as they become available. - Wound care consulted, appreciate assistance - A1c in Am, patient has elevated glucose, 227 on BMP. He does not ever check sugars at home. Last A1c in 6.7%. - Will need tight control of sugars to promote wound healing. - MRI=Evidence of osteomyelitis of 5th MT and proximal phalanx with dislocation and likely septic arthritis of the MTJ versus adjacent abscess * Consulted [facility] ortho who advised podiatry consult. However, pt hasn't been seen by podiatry in 3 years * Discussed with Dr. Hagan, he will seen in consult today. Made NPO after MN this morning and Lovenox held * Patient will likely need 6 weeks of IV abx, picc line insertion. Hopefully intraoperative cultures will provide specific data on bacteria so that abx can be tailored. However, possible that by the time cultures are collected, may be sterilized. Continue broad spectrum abx for now. (2) DM type 2 (diabetes mellitus, type 2): Plan: - Home regimen includes metformin 1000 mg BID. Will hold while patient. - Accu-Cheks ACH S with sliding scale insulin. - A1c 6.2% reflecting great control (3) History of sleep apnea: Plan: - Elevated RVSP 30 -40 mmHg on Echo in Apr as part od CVA workup (final diagnosis Menier's dz) - Was evaluated for YUMIKO as outpatient, per patient has resolved with weight loss. (4) Meniere disease: Plan: - Continue meclizine prn. Plan Re: cough, suspect viral rhinitis with post nasal drip. Ordered Mucinex and Tessalon PRN. Hopeful to OR for I&D with wash out either today or tomorrow AM labs this morning stable Plan d/w Dr. Painter. Admission and Anticipated Discharge Date Admission Date: November 18, 2021 Subjective Patient seen on daily rounds this morning. He was hospitalized due to worsening diabetic L foot ulcer. 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 He has been having ongoing issues with this wound but seems to acutely worsened over the past couple of days. Pain presently controlled, no fever/chills. Has a slight cough, states that he has some head congestion. Was negative for COVID. Cough is about the same today. Made NPO last night. He was seen by [facility] ortho on 11/19 who recommended podiatry consult; however, spoke with Dr. Hagan and Don Escobar PA-C who will see patient today in hopes to take to OR either today or tomorrow. Review of Systems Review of Systems: All systems reviewed and are unremarkable except as noted in HPI and below. Denies fever, chills, fatigue, headache, nasal congestion, sore throat, cough, chest pain, shortness of breath, palpitations, orthopnea, PND, abdominal pain, n/v/d, constipation, dysuria, hematuria, frequency, back pain, joint pain or swelling, easy bruising or bleeding. Physical Exam Physical Exam: GENERAL: 71 yo Well-developed, well-nourished WM. NAD. LUNGS: Clear to auscultation bilaterally. No W/R/R. CARDIOVASCULAR: Regular rate and rhythm. ABDOMEN: Soft, non-tender and non-distended. BS normoactive x 4 quad. EXTREMITIES: No edema. Non-tender. Peripheral pulses +2/4. NEUROLOGIC: A&O x3. Non focal PSYCHIATRIC: Cooperative. Appropriate mood and affect. SKIN: Warm, dry, intact. L foot dressed and wrapped in aubree. R foot partially wrapped in aubree. Results & Data Results & Data ([facility]) Vital Signs (Past 12 Hours) Vital Signs Temp Pulse Resp BP Pulse Ox O2 Del Method 11/20/21 11:21 36.6 C 87 18 137/86 95 Room Air 11/20/21 09:15 Room Air 11/20/21 07:10 36.7 C 80 18 139/84 96 Room Air Laboratory Results 11/20/21 05:20 11/20/21 05:20 PG Care Time/CCT Total # of Minutes Spent Total Time Spent with Patient: Total time spent is greater than 50% in coordination of care (as documented) at patient's floor/unit and/or counseling patient: Coding Level of Care Code 26035 Subseq Hosp Care Lvl 2 Diagnoses Foot ulcer, left L97.529 DM type 2 (diabetes mellitus, type 2) E11.9 History of sleep apnea Z86.69 Meniere disease H81.09
[2021-11-20] MEDS ORDERED: INSULIN ASPART PER UNIT SC SCH (12:00)
[2021-11-20] MEDS: DAPTOmycin 475 MG in SYRINGE 0 ML IV SCH (15:56)
[2021-11-20] MEDS: POLYETHYLENE (MIRALAX) 17 GM PACK PO PRN (21:04)
[2021-11-21] MEDS ORDERED: Nursing to Pharmacy Communication SCH (02:45)
[2021-11-21] MEDS: PIPERACILLIN/TAZOBACTAM 3.375 GM in DEXTROSE 5% 100 ML IV SCH (04:46)
[2021-11-21] MEDS: INSULIN ASPART PER UNIT SC SCH ×4 (06:13→20:59)
[2021-11-21] MEDS: guaiFENesin 600 MG TABCR PO SCH ×2 (07:20→21:07)
--- NOTE | 2021-11-21 08:00 | Hospitalist Progress Note ---
Date of Service November 21, 2021 Assessment & Plan (1) Osteomyelitis of fifth toe of left foot: Plan: Diabetic foot ulcer with evidence of osteomyelitis - Ulcers have been present for 4-5 years, patient attributes them to back injury several years ago which is disrupted distribution of weight on this foot. He is to follow-up with podiatry, has not seen them in 2 years as symptoms were getting better at that point he did not feel it was necessary. ESR/CRP elevated, Lactic acid 2.4 WBC wnl, procal 0.08 MRI IMPRESSION: * Findings are compatible with osteomyelitis of the fifth metatarsal and proximal phalanx with dislocation and likely septic arthritis of the metatarsophalangeal joint versus less likely adjacent abscess. Surrounding cellulitis is noted. Ortho consulted Abx: Dapto/Zosyn Surface cx gram negative bacilli from 11/18 * (prior cx 2019 LEFT foot with proteus mirabilis, group C beta strep, enterococcus, bacteroides fragilis) NPO for I&D today +/- bony resection with Dr Hagan -- this afternoon per discussion with OR staff +LR@75cc/hr while NPO Blood cultures NGTD after 48 hours Wound cx to be obtained from OR Wound RN consulted Pain control, antiemetics prn Lovenox SQ on hold for OR Patient will likely need 6 weeks of IV abx, picc line insertion. Hopefully intraoperative cultures will provide specific data on bacteria so that abx can be tailored. However, possible that by the time cultures are collected, may be sterilized. Continue broad spectrum abx for now. (2) Foot ulcer, left: Plan: as above (3) DM type 2 (diabetes mellitus, type 2): Plan: A1c 6.2, great control, typically on metformin 1gm BID at home, held while inpatient Accu-Cheks ACH S with sliding scale insulin. BSGs acceptable (4) History of sleep apnea: Plan: Elevated RVSP 30 -40 mmHg on Echo in Apr as part od CVA workup (final diagnosis Meniere's dz) - Was evaluated for YUMIKO as outpatient, per patient has resolved with weight loss. (5) Meniere disease: Plan: - Continue meclizine prn.-- has not needed (6) Diabetic foot ulcer with osteomyelitis: (7) Cough: Plan: reported cough 11/20. suspected viral rhinitis with post-nasal drip mucinex 600mg BID added, tessalon pearls prn reported improvement/mucus production, no fever/shortness of breath monitor Plan NPO for I&D/washout with Dr Hagan when able later today, Holding Lovenox SQ (SCDs in place) Added gentle IVF while NPO as not for OR until this afternoon Admission and Anticipated Discharge Date Admission Date: November 18, 2021 Supervising Physician Co-Signing Physician Notes PA Supervision Note: I did not personally see or examine the patient today, but I verified all prabhakar points of KARINA Rodriguez's assessment and plan with the following exceptions/additions: None Subjective Patient evaluated around 11am, waiting for surgery. He thought was to be this morning, discussed will call OR to check for timing/?maybe emergency case (called later, Dr Hagan didn't give avail until after 3pm as in clinic, alerted RN to alert patient). Patient states pain controlled, primarily having neuropathic pain. 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 Had been covering wound to lateral plantar 5th digit with bandaids and socks at home. Did have some nasal congestion, states the mucinex helping from day prior at helping him to clear some phlegm up. Can increase if needed. No fever/chills, chest pain, shortness of breath, abdominal pain, nausea or vomiting. Review of Systems Review of Systems: All systems reviewed & are unremarkable except as noted in HPI & below Physical Exam Physical Exam: General: WD/WN male sitting up in recliner on phone, NAD HEENT: head normocephalic, atraumatic, mm slightly dry, trachea midline Resp: CTAB, no/w/c/r, 97% on RA CV: RRR, no m/r/g, no pitting edema GI: +BS, soft, nontender : no lemus MSK/Neuro/skin: dressing b/l LE in place with SCDs dressing to LLE removed, callous to plantar surface 1st MTP, also draining ulcer to lateral/5th digit with purulent drainage/blister, non-tender to palpation surrounding cellulitis resolved +b/l neuropathy swelling (reported resolved) Results & Data Results & Data ([facility]) Vital Signs (Past 12 Hours) Vital Signs Temp Pulse Resp BP Pulse Ox O2 Del Method 11/21/21 07:30 36.6 C 76 18 122/73 97 Room Air 09/06/22 22:47 36.9 C 83 118/76 92 Room Air 11/20/21 21:30 Room Air Laboratory Results 11/21/21 11/21/21 11/21/21 Range/Units 08:10 08:10 07:26 WBC 4.05 L (4.8-10.8) K/ul RBC 3.86 L (4.63-6.08) M/uL Hgb 10.9 L (14.0-18.0) g/dl Hct 32.4 L (40.1-51.0) % MCV 83.9 (80.0-100.0) fL MCH 28.2 (25.0-34.0) pg MCHC 33.6 (32.0-36.0) g/dL RDW Std Deviation 36.1 L (36.4-46.3) fL RDW Coeff of Yareli 11.9 (11.5-14.5) % Plt Count 211 (130-400) K/uL MPV 9.0 L (9.4-12.4) fL Immature Gran % (Auto) 0.2 % Neut % (Auto) 68.0 % Lymph % (Auto) 14.6 % Irwin % (Auto) 13.8 % Eos % (Auto) 2.7 % Baso % (Auto) 0.7 % Neut # (Auto) 2.75 (1.4-6.5) K/uL Lymph # (Auto) 0.59 L (1.2-3.4) K/uL Irwin # (Auto) 0.56 (0.24-0.82) K/uL Eos # (Auto) 0.11 (0-0.50) K/uL Baso # (Auto) 0.03 (0-0.2) K/uL Immature Gran # (Auto) 0.01 (0.00-0.02) K/uL Sodium 138 (136-145) mmol/L Potassium 3.8 (3.5-5.1) mmol/L Chloride 104 (98-107) mmol/L Carbon Dioxide 26 (21-32) mmol/L Anion Gap 8 (3-11) BUN 15 (6-23) mg/dl Creatinine 0.90 0.94 (0.6-1.4) mg/dl Est Cr Clr Drug Dosing 87.5 83.8 ml/min Est GFR ( Amer) 100.6 95.5 ml/min Est GFR (Non-Af Amer) 86.8 82.4 ml/min BUN/Creatinine Ratio 16.7 (10-20) Glucose 99 (70-99(Fasting)) mg/dl POC Glucose (70-99) mg/dl Calcium 9.2 (8.5-10.1) mg/dl Magnesium 1.8 (1.7-2.4) mg/dl Total Bilirubin 0.5 (0.2-1.0) mg/dl AST 9 L (13-39) U/L ALT 6 L (7-52) U/L Alkaline Phosphatase 54 (34-104) U/L Total Protein 6.6 (6.0-8.3) gm/dl Albumin 3.4 (3.4-5.0) gm/dl Globulin 3.2 (2.5-4.0) gm/dl Albumin/Globulin Ratio 1.1 (0.9-2) 11/21/21 11/20/21 11/20/21 Range/Units 06:12 21:18 17:19 WBC (4.8-10.8) K/ul RBC (4.63-6.08) M/uL Hgb (14.0-18.0) g/dl Hct (40.1-51.0) % MCV (80.0-100.0) fL MCH (25.0-34.0) pg MCHC (32.0-36.0) g/dL RDW Std Deviation (36.4-46.3) fL RDW Coeff of Yareli (11.5-14.5) % Plt Count (130-400) K/uL MPV (9.4-12.4) fL Immature Gran % (Auto) % Neut % (Auto) % Lymph % (Auto) % Irwin % (Auto) % Eos % (Auto) % Baso % (Auto) % Neut # (Auto) (1.4-6.5) K/uL Lymph # (Auto) (1.2-3.4) K/uL Irwin # (Auto) (0.24-0.82) K/uL Eos # (Auto) (0-0.50) K/uL Baso # (Auto) (0-0.2) K/uL Immature Gran # (Auto) (0.00-0.02) K/uL Sodium (136-145) mmol/L Potassium (3.5-5.1) mmol/L Chloride (98-107) mmol/L Carbon Dioxide (21-32) mmol/L Anion Gap (3-11) BUN (6-23) mg/dl Creatinine (0.6-1.4) mg/dl Est Cr Clr Drug Dosing ml/min Est GFR ( Amer) ml/min Est GFR (Non-Af Amer) ml/min BUN/Creatinine Ratio (10-20) Glucose (70-99(Fasting)) mg/dl POC Glucose 103 H 80 182 H (70-99) mg/dl Calcium (8.5-10.1) mg/dl Magnesium (1.7-2.4) mg/dl Total Bilirubin (0.2-1.0) mg/dl AST (13-39) U/L ALT (7-52) U/L Alkaline Phosphatase (34-104) U/L Total Protein (6.0-8.3) gm/dl Albumin (3.4-5.0) gm/dl Globulin (2.5-4.0) gm/dl Albumin/Globulin Ratio (0.9-2) 11/20/21 Range/Units 12:15 WBC (4.8-10.8) K/ul RBC (4.63-6.08) M/uL Hgb (14.0-18.0) g/dl Hct (40.1-51.0) % MCV (80.0-100.0) fL MCH (25.0-34.0) pg MCHC (32.0-36.0) g/dL RDW Std Deviation (36.4-46.3) fL RDW Coeff of Yareli (11.5-14.5) % Plt Count (130-400) K/uL MPV (9.4-12.4) fL Immature Gran % (Auto) % Neut % (Auto) % Lymph % (Auto) % Irwin % (Auto) % Eos % (Auto) % Baso % (Auto) % Neut # (Auto) (1.4-6.5) K/uL Lymph # (Auto) (1.2-3.4) K/uL Irwin # (Auto) (0.24-0.82) K/uL Eos # (Auto) (0-0.50) K/uL Baso # (Auto) (0-0.2) K/uL Immature Gran # (Auto) (0.00-0.02) K/uL Sodium (136-145) mmol/L Potassium (3.5-5.1) mmol/L Chloride (98-107) mmol/L Carbon Dioxide (21-32) mmol/L Anion Gap (3-11) BUN (6-23) mg/dl Creatinine (0.6-1.4) mg/dl Est Cr Clr Drug Dosing ml/min Est GFR ( Amer) ml/min Est GFR (Non-Af Amer) ml/min BUN/Creatinine Ratio (10-20) Glucose (70-99(Fasting)) mg/dl POC Glucose 94 (70-99) mg/dl Calcium (8.5-10.1) mg/dl Magnesium (1.7-2.4) mg/dl Total Bilirubin (0.2-1.0) mg/dl AST (13-39) U/L ALT (7-52) U/L Alkaline Phosphatase (34-104) U/L Total Protein (6.0-8.3) gm/dl Albumin (3.4-5.0) gm/dl Globulin (2.5-4.0) gm/dl Albumin/Globulin Ratio (0.9-2) Diagnostic Findings Foot MRI 11/18/21 16:12 MR foot LT wo/w con CLINICAL HISTORY: left foot ulcer, r/o osteomyelitis TECHNIQUE: Multiplanar multisequence MR images of the left foot were obtained. Comparison: Comparison is made to left foot radiograph 11/18/2021 FINDINGS: Bones: Again noted is a dislocation of the fifth digit metatarsal phalangeal joint. There is extensive bony edema in the fifth metatarsal and to a lesser extent in the proximal phalanx. There is an approximately 15 mm T2 hyperintense, T1 rim-enhancing hypointense focus at the metatarsophalangeal joint. Soft tissue: Extensive soft tissue edema is seen most prominent in the lateral aspect of the foot. Apart from the above findings, no drainable fluid collections are definitely seen. IMPRESSION: Findings are compatible with osteomyelitis of the fifth metatarsal and proximal phalanx with dislocation and likely septic arthritis of the metatarsophalangeal joint versus less likely adjacent abscess. Surrounding cellulitis is noted. ACT 112: Negative or not required by law. Electronically signed by: Luis Turner M.D. 11/18/2021 6:12 PM PG Care Time/CCT Total # of Minutes Spent Total Time Spent with Patient: Total time spent is greater than 50% in coordination of care (as documented) at patient's floor/unit and/or counseling patient: Coding Level of Care Code 15310 Subseq Hosp Care Lvl 3 Diagnoses Osteomyelitis of fifth toe of left foot M86.9 Foot ulcer, left L97.529 DM type 2 (diabetes mellitus, type 2) E11.9 History of sleep apnea Z86.69 Meniere disease H81.09 Diabetic foot ulcer with osteomyelitis E11.621; E11.69; L97.509; M86.9 Cough R05.9
[2021-11-21 08:09] LABS: Creatinine Clr Calc Pharmacy 83.8 ml/min; Est GFR (African American) 95.5 ml/min; Est GFR (Non-African American) 82.4 ml/min
[2021-11-21 08:38] LABS: Basophils # (auto) 0.03 K/uL (0-0.2); Basophils % (auto) 0.7 %; Eosinophils # (auto) 0.11 K/uL (0-0.50); Eosinophils % (auto) 2.7 %; Hematocrit (blood only) 32.4 % (40.1-51.0); Hemoglobin 10.9 g/dl (14.0-18.0); Immature Granulocytes # (auto) 0.01 K/uL (0.00-0.02); Immature Granulocytes % (auto) 0.2 %; Lymphocytes # (auto) 0.59 K/uL (1.2-3.4); Lymphocytes % (auto) 14.6 %; Mean Corpuscular Hemoglobin 28.2 pg (25.0-34.0); Mean Corpuscular Hgb Conc 33.6 g/dL (32.0-36.0); Mean Corpuscular Volume 83.9 fL (80.0-100.0); Monocytes # (auto) 0.56 K/uL (0.24-0.82); Monocytes % (auto) 13.8 %; Neutrophils # (auto) 2.75 K/uL (1.4-6.5); Platelet Count 211 K/uL (130-400); RDW Coefficient of Variation 11.9 % (11.5-14.5); RDW Standard Deviation 36.1 fL (36.4-46.3); Red Blood Count 3.86 M/uL (4.63-6.08); White Blood Count 4.05 K/ul (4.8-10.8)
[2021-11-21 09:03] LABS: BUN Creatinine Ratio 16.7 (10-20); Calcium 9.2 mg/dl (8.5-10.1); Creatinine Clr Calc Pharmacy 87.5 ml/min; Est GFR (African American) 100.6 ml/min; Est GFR (Non-African American) 86.8 ml/min; Potassium 3.8 mmol/L (3.5-5.1)
[2021-11-21 09:35] LABS: Albumin Globulin Ratio 1.1 (0.9-2); Albumin Level 3.4 gm/dl (3.4-5.0); Bilirubin,Total 0.5 mg/dl (0.2-1.0); Globulin 3.2 gm/dl (2.5-4.0); Magnesium 1.8 mg/dl (1.7-2.4); Total Protein 6.6 gm/dl (6.0-8.3)
[2021-11-21] MEDS ORDERED: SODIUM CHLORIDE 0.9% 1000ML 1,000 ML IV SCH (11:00)
[2021-11-21] MEDS: PIPERACILLIN/TAZOBACTAM 4.5 GM in DEXTROSE 5% 100 ML IV SCH ×2 (13:39→21:15)
[2021-11-21] MEDS: DAPTOmycin 475 MG in SYRINGE 0 ML IV SCH (14:56)
[2021-11-21] MEDS ORDERED: DEXAMETHASONE SOD INJ 4 MG/ML VIAL ONE (16:18)
[2021-11-21] MEDS ORDERED: ePHEDrine sulfate 50 MG/ML AMP ONE (16:18)
[2021-11-21] MEDS ORDERED: ONDANSETRON INJ 2 MG/ML 2 ML VIAL ONE (16:18)
[2021-11-21] MEDS ORDERED: PHENYLEPHRINE HCL 10 MG/ML VIAL ONE (16:18)
[2021-11-21] MEDS ORDERED: LIDOCAINE 2% MPF LOCAL 5 ML VIAL INFIL ONE (16:18)
[2021-11-21] MEDS ORDERED: PROPOFOL IV EMULSION 10 MG/ML 20 ML VIAL IV ONE ×2 (16:18→18:54)
[2021-11-21] MEDS ORDERED: fentaNYL citrate 100 MCG/2 ML VIAL ONE (16:19)
[2021-11-21] MEDS ORDERED: MIDAZOLAM HCL 1 MG/ML 2ML VIAL ONE (16:19)
--- NOTE | 2021-11-21 16:37 | Anesthesiology Consultation ---
Date of Service November 21, 2021 Assessment & Plan Chart Review Chart Review: Acceptable Risk for Surgery and Patient NOT seen in Pre Admission Testing Consults Requested none ASA ASA3 Proposed Anesthesia Anesthesia Type: General Risk / Benefits Reviewed With: PT / POA / Parent / Guardian, Accepts Plan and Informed Consent Obtained Additional Comments: covid test neg. History Surgery Operation Date: 11/21/21 08:20 Proposed Procedures p Left 5th Metatarsalphalangeal Joint Incision and Drainage - Kishor Hagan DO Height/Weight Height: 6 ft 1 in Weight: 87.3 kg Allergies Allergy/AdvReac Type Severity Reaction Status Date / Time No Known Allergies Allergy Verified 11/18/21 16:01 Medications Home Medications Medication Instructions Recorded Confirmed Last Taken multivitamin 1 tab PO QAM 12/28/20 11/18/21 11/18/21 metformin 1,000 mg tablet 1,000 mg PO BID #60 tabs 05/22/21 11/18/21 11/18/21 08:00 sildenafil 100 mg tablet 100 mg PO DAILY PRN sexual 05/22/21 11/18/21 Unknown activity #30 tabs acetaminophen-caffeine 500 mg-65 1 tab PO DIRECTED PRN HEADACHES 11/18/21 11/18/21 Unknown mg tablet (Excedrin Tension Headache) meclizine 25 mg tablet 25 mg PO TID PRN Dizziness 11/18/21 11/18/21 Unknown blood sugar diagnostic (OneTouch #100 ea 11/21/21 Unknown Ultra Test strips) blood-glucose meter (OneTouch #1 ea 11/21/21 Unknown Ultra2 Meter) lancets 33 gauge (OneTouch Delica #100 ea 11/21/21 Unknown Lancets) Active Medications Generic Name Dose Route Start Last Admin Trade Name Freq PRN Reason Stop Dose Admin Acetaminophen 1,000 mg 11/19/21 19:34 11/19/21 19:51 Acetaminophen 500 Mg Tab PO 12/19/21 19:33 1,000 mg Q6H PRN Administration Pain or Fever Enoxaparin Sodium 40 mg 11/18/21 21:00 11/18/21 21:07 Enoxaparin Inj 40 Mg/0.4 Ml Syr SQ 12/18/21 20:59 40 mg Q24H LÓPEZ Administration Guaifenesin 600 mg 11/19/21 21:00 11/21/21 07:20 Guaifenesin 600 Mg Tabcr PO 12/19/21 20:59 Not Given Q12 LÓPEZ Daptomycin 475 mg/ Syringe 9.5 mls @ 4.75 mls/min 11/20/21 14:00 11/21/21 14:56 IV 01/01/22 13:59 4.75 mls/min DAILY@1400 LÓPEZ Administration Protocol Sodium Chloride 1,000 mls @ 75 mls/hr 11/21/21 11:00 11/21/21 12:14 Nss 1000ml IV 11/22/21 00:19 75 mls/hr .[id number] LÓPEZ Administration Piperacillin Sod/Tazobactam 120 mls @ 30 mls/hr 11/21/21 13:00 11/21/21 13:39 Sod 4.5 gm/ Dextrose IV 11/25/21 20:59 30 mls/hr Q8H LÓPEZ Administration Protocol Insulin Aspart 0 units 11/21/21 06:00 11/21/21 12:16 Insulin Aspart Per Unit SC 12/21/21 05:59 Not Given Q6 LÓPEZ Polyethylene Glycol 17 gm 11/18/21 19:08 11/20/21 21:04 Polyethylene (Miralax) 17 Gm Pack PO 12/18/21 19:07 17 gm DAILY PRN Administration Constipation NPO Date Last Intake of Fluids: 11/20/21 Time Last Intake of Fluids: 23:59 Date Last Intake of Solids: 11/20/21 Time Last Intake of Solids: 17:00 Past Medical History Medical History DM type 2 (diabetes mellitus, type 2) History of sleep apnea resolved after wt loss Slow to wake up after anesthesia Exercise / Class Metabolic Activity II 4-5 Yardwork/Stairs/Walk up hill Past Family History Family History Mother , age 94 Primary cancer of orbit Father , age 62 of lung cancer Lung cancer Other No family history of adverse response to anesthesia No family history of bleeding disorder Past Surgical History Surgical History History of biopsy skin History of cataract surgery History of tooth extraction S/P correction of deviated nasal septum Past Anesthesia History No Hx of Anesthesia Complications and No Family Hx of Anesthesia Complications History of PONV No Hx of PONV and No Hx of Motion Sickness Social History Smoking Status: Never smoker Do You Dip or Chew Tobacco: No Hx Alcohol Use: No Hx Substance Use: No substance use type: does not use Physical Exam Vital Signs Last Vital Signs Temp 37 C 11/21/21 15:37 Pulse 98 H 11/21/21 15:37 Resp 17 11/21/21 15:37 BP 131/86 11/21/21 15:37 Pulse Ox 97 11/21/21 15:37 O2 Del Method 11/21/21 15:37 Constitutional not cachectic ENMT Mouth: + dentition abnormality, + edentulous, + poor dentition and + loose teeth Thyromental Distance: > or= 3.5 Finger Breadths Mallampati Class: II Neck normal visual inspection and trachea midline; neck extension not limited Respiratory normal respiratory effort Auscultation: lungs clear to auscultation bilaterally Cardiovascular Rate/Rhythm: regular rate and regular rhythm Heart Sounds: no murmur Vessels: no carotid bruit Musculoskeletal Spine: normal cervical ROM and no pain with cervical ROM Extremities: full ROM of extremities Neurologic moves all extremities Motor/Sensory: + sensory deficit (diabetic PN feet) Psychiatric Orientation: alert and oriented x 3 Testing Laboratory Results 11/21/21 08:10 11/21/21 08:10 PT 10.6 Seconds (9.0-12.0) 11/18/21 14:20 INR 1.0 (0.9-1.1) 11/18/21 14:20 APTT 31.6 Seconds (21.0-31.0) H 11/18/21 14:20 Hemoglobin A1c 6.2 % (4.5-5.6) H 11/19/21 07:01 Urine Color Yellow 11/18/21 18:10 Urine Appearance Clear (Clear) 11/18/21 18:10 Urine pH 5.5 (4.5-7.5) 11/18/21 18:10 Ur Specific [place] 1.016 (1.000-1.030) 11/18/21 18:10 Urine Protein Negative (Negative) 11/18/21 18:10 Urine Glucose (UA) Trace (Negative) H 11/18/21 18:10 Urine Ketones Negative (Negative) 11/18/21 18:10 Urine Nitrite Negative (Negative) 11/18/21 18:10 Ur Leukocyte Esterase Negative (Negative) 11/18/21 18:10 11/18/21 14:20 Aerobic Blood Culture - Preliminary Blood No growth in Aerobic bottle after 48 hours. Anaerobic Blood Culture - Preliminary No growth in Anaerobic bottle after 48 hours. 11/18/21 14:35 Aerobic Blood Culture - Preliminary Blood No growth in Aerobic bottle after 48 hours. Anaerobic Blood Culture - Preliminary No growth in Anaerobic bottle after 48 hours. 11/18/21 Unknown Gram Stain - Final Foot,Left Wound Culture - Preliminary Gram negative bacilli 11/21/21 11/21/21 11/21/21 15:42 12:10 06:12 POC Glucose 100 H 106 H 103 H Electrocardiogram Date: 11/18/21 Findings: + NSR @ (@ 83) Chest X-Ray Date: 11/18/21 Findings: + NAD Echocardiogram Date: 04/21/21 EF: 60% LV Function: normal RWMA: + none Other Findings: + diastolic dysfunction (grade 1) Valvular Disease: + MR (mild MR)
[2021-11-21] MEDS ORDERED: HYDROmorphone INJ 1 MG/ML SYRINGE IV PRN (16:42)
[2021-11-21] MEDS ORDERED: NALOXONE HCL 0.4 MG/1 ML VIAL/CARP IV PRN (16:42)
[2021-11-21] MEDS ORDERED: ONDANSETRON INJ 2 MG/ML 2 ML VIAL IV PRN (16:42)
[2021-11-21] MEDS ORDERED: ePHEDrine sulfate 50 MG/ML AMP IV PRN (16:42)
[2021-11-21] MEDS ORDERED: fentaNYL citrate 100 MCG/2 ML VIAL IV PRN (16:42)
[2021-11-21] MEDS ORDERED: LABETALOL HCL IV 5 MG/ML 20ML IV PRN (16:42)
[2021-11-21] MEDS ORDERED: PROMETHAZINE HCL 12.5 MG in SODIUM CHLORIDE 0.9% 50 ML IV PRN (16:42)
[2021-11-21] MEDS ORDERED: ATROPINE SULFATE 0.1 MG/ML 10ML SYR IV PRN (16:42)
[2021-11-21] MEDS ORDERED: FLUMAZENIL 0.1 MG/1 ML 10 ML VIAL IV PRN (16:42)
[2021-11-21] MEDS ORDERED: BUPIVACAINE 0.5 % 5 MG/1 ML MPF 30ML VIAL ONE (18:02)
--- NOTE | 2021-11-21 18:33 | History & Physical Bridge Note ---
Date of Service November 21, 2021 History & Physical Bridge Note I have examined the patient, reviewed the History & Physical and in the interval since the performance of the History & Physical I have noted the following changes of clinical significance: Left foot resection fifth metatarsal, evacuation abscess, debridement ulcer.
--- NOTE | 2021-11-21 20:08 | Post Operative Brief Note ---
Immediate Post Op Note v1 Date of Surgery November 21, 2021 Pre & Post Diagnosis Operation Date: 11/21/21 08:20 Pre-Op Diagnosis: Left foot osteomyelitis fifth metatarsal, osteomyelitis fifth proximal phalanx, abscess left foot, diabetic ulcer 1 cm x 1 cm 1 cm, flexor tenosynovitis fifth toe Post-Op Diagnosis: Left foot osteomyelitis fifth metatarsal, osteomyelitis fifth proximal phalanx, abscess left foot, diabetic ulcer 1 cm x 1 cm 1 cm, flexor tenosynovitis fifth toe I identified the patient and participated in the time-out.: Yes Procedure Operation Date: 11/21/21 08:20 Actual Procedures p Left foot subtotal resection 5th Metatarsal, partial resection proximal fifth phalanx, evacuation abscess, Debridement ulcer left plantar foot (skin, dermis, fascia, joint capsule), tenosynovectomy flexor tendon fifth toe (Left) - Kishor Hagan DO Surgeon Kishor Hagan DO Pump And Still Operator None Estimated Blood Loss 5 Findings Consistent with Post-Op Diagnosis Specimens Aerobic, anaerobic, Gram stain abscess plantar lateral left foot Fifth metatarsal specimen for pathology Drains Other (1/2 inch iodoform gauze packing) Anesthesia Type MAC Regional Complications none Disposition Accompanied Patient To Recovery: No
--- NOTE | 2021-11-21 20:31 | Anesthesiology Progress Note ---
Date of Service November 21, 2021 Anesthesia Post Procedure Vital Signs Vital Signs: Temp Pulse Pulse Resp BP Pulse Ox O2 Del Method 11/21/21 20:20 36.6 C 75 12 115/72 96 Room Air 11/21/21 20:10 75 12 110/78 96 Room Air 11/21/21 20:01 36.5 C 80 17 138/81 97 Room Air 11/21/21 15:37 37 C 98 H 17 131/86 97 Room Air 11/21/21 07:30 36.6 C 76 18 122/73 97 Room Air 11/20/21 22:47 36.9 C 83 118/76 92 Room Air 11/20/21 21:30 Room Air Pain Intensity Left Foot: Pain Intensity: 1 Posterior Head: Pain Intensity: 4 Transfer of Care Handoff Completed per policy Notes Mental Status: alert / awake / arousable Patient Amnestic to Procedure: Yes Nausea / Vomiting: adequately controlled Pain: adequately controlled Airway Patency, RR, SpO2: stable & adequate BP & HR: stable & adequate Hydration State: stable & adequate Anesthetic Complications: no major complications apparent
[2021-11-21] MEDS: ENOXAPARIN INJ 40 MG/0.4 ML SYR SQ SCH (22:22)
--- NOTE | 2021-11-22 04:43 | Operative Report (OR) ---
PREOPERATIVE DIAGNOSES: 1. Left foot osteomyelitis, fifth metatarsal. 2. Abscess of the plantar lateral left foot. 3. Diabetic ulcer, plantar fifth metatarsal head region, 1 x 1 x 1 cm. POSTOPERATIVE DIAGNOSES: 1. Left foot osteomyelitis, fifth metatarsal. 2. Osteomyelitis of the fifth proximal phalanx. 3. Abscess of the left foot. 4. Diabetic ulcer, 1 x 1 x 1 cm. 5. Flexor tenosynovitis of the fifth toe. PROCEDURE: 1. Left foot subtotal partial resection, fifth metatarsal, due to osteomyelitis. 2. Partial resection of the proximal phalanx, fifth toe, due to osteomyelitis. 3. Evacuation of abscess, plantar lateral left foot. 4. Debridement of ulcer, left foot, 1 x 1 x 1 cm including skin, dermis, fascia, and joint capsule. 5. Tenosynovectomy of septic fifth flexor tendon. SURGEON: Kishor Hagan DO SEAMAN OFFICER: None. ANESTHESIA: MAC regional. SPECIMENS: 1. Aerobic, anaerobic, Gram stain abscess, plantar lateral, left foot. 2. Fifth metatarsal for pathologic assessment. DRAINS: A 1/2-inch iodoform gauze packing. COMPLICATIONS: None. BLOOD LOSS: 5 mL. PERTINENT HISTORY: This is a 71-year-old gentleman who has had ongoing treatment for ulceration with subsequent osteomyelitis of his left fifth metatarsal head region for over a year. He has been unde r the care of local podiatrists. The patient failed conservative management and then presented to [facility] Emergency Department. He was admitted to the hospitalist service and another orthopedic group had given their assessment and recommended podiatric management. However, the medical service then reque sted a secondary consult and after evaluation of the radiographs demonstrating chronic osteo in the f ifth metatarsal head supported by MRI with obvious abscess in the left foot with osteomyelitis of the fifth metatarsal, question of osteomyelitis at the base of the proximal phalanx of the fifth toe and other local soft tissue involvement with the chronic ulceration, decision was made that operative in tervention would be more prudent with more aggressive resection of the infected bone. The patient de cided to proceed with the procedure as indicated. All potential risks, benefits, complications, alternatives, rehab potential for incomplete relief of symptoms, need for further surgery, DVT, PE, , persistent pain, swelling, scarring, weakness, ne urovascular injury, wound complications, need for further surgery or amputation was discussed with th e patient. The patient decided to proceed with the procedure as indicated. DESCRIPTION OF PROCEDURE: The patient was taken to the operative suite and placed supine on the oper ating table. After review of consent and identification of proper operative site, the patient was se dated. After identification of the proper operative site and surgical timeout, an ankle block was pe rformed with 30 mL of 0.5% Marcaine plain in standard fashion. Left lower extremity was then sterile ly prepped and draped in usual fashion, elevated and partially exsanguinated from the calcaneus proxi isaiah to avoid cross contamination from the area of infection with an Esmarch, and an Esmarch tourniq uet was applied over sterile surgical towel at the level of the ankle. Next, a 15-blade scalpel was used to make an incision along the dorsal lateral aspect of the left monserrat t from the mid portion of the fifth metatarsal extending distally to the level of the small ulceratio n. The incision was then deepened through skin and subcutaneous tissue. Meticulous hemostasis was a chieved with electrocautery with judicious use. Pamela rakes were applied to retract soft tissue revea ling the abscess, which collected around the fifth metatarsophalangeal joint extending to the plantar ulceration measuring 1 x 1 x 1 cm deep. Next, obvious abscess fluid was encountered, approximately 5-7 mL. This was then cultured for aerobic, anaerobic, Gram stain specimens which were then passed o ff the back table. Next, the fifth metatarsal was then skeletonized and the joint capsule had been c ompromised due to the nature of the chronic infection and the base of the proximal phalanx fifth toe was obviously involved. A 15-blade was passed into the bone without any difficulty consistent with c hronic osteomyelitis of the proximal phalanx of the fifth toe. Similarly, the blade was passed into the head and distal one-third of the fifth metatarsal without difficulty, indicating chronic osteomye litis. Next, after skeletonization of the fifth metatarsal, there was noted to be a stable margin just proxi mal to the midway point of the fifth metatarsal. Therefore, a subtotal resection was decided upon. Hohmann retractors were placed circumferentially around the fifth metatarsal. A sagittal saw was the n used to resect the fifth metatarsal in an oblique angle to avoid any plantar lateral pressure point s. The subtotal resection of bone was then passed off as specimen for pathological assessment. Next , the Hohmann retractors were placed circumferentially around the proximal phalanx of the fifth toe a nd hemiresection of the proximal phalanx was then performed with a sagittal saw. This fragment of aysha ne was also passed off as specimen. Next, the flexor tendon was noted to have infectious tenosynovitis and a tenosynovectomy was then per formed with a rongeur and tenotomy scissor and forcep. Sharp debridement was then performed around t he plantar diabetic ulcer including sharp dissection with 15-blade scalpel and a tenotomy scissor wit h resection of necrotic skin, dermis, subcutaneous tissue, fascia up to and including a portion of th e plantar plate and joint capsule. Remaining tissue appeared to have some integrity and was left in place to surface load bearing regions of the foot. Next, pulsatile lavage, 3 liters of Ancef was use d to lavage the incisions and the plantar ulcer clear of any debris and necrotic tissue. Next, after lavage was complete, top gloves and top sheet were changed. Next, the dermis and deep so ft tissue proximal was then closed using buried interrupted 3-0 Vicryl extending distally using minim al sutures, followed by closure of the dorsal lateral incision with a running horizontal mattress 3-0 nylon suture. Next, a 1/2-inch iodoform gauze packing was placed through and through to the plantar aspect of the diabetic ulceration site. Next, a sterile compressive dressing was applied, overwrapp ed with an Agustin wrap. The tourniquet was released. The patient was awakened and taken to recovery in stable condition. Job ID: [id number]
[2021-11-22] MEDS: PIPERACILLIN/TAZOBACTAM 4.5 GM in DEXTROSE 5% 100 ML IV SCH ×3 (04:50→20:45)
[2021-11-22 07:52] LABS: Hematocrit (blood only) 34.2 % (40.1-51.0); Hemoglobin 11.1 g/dl (14.0-18.0); Mean Corpuscular Hemoglobin 27.5 pg (25.0-34.0); Mean Corpuscular Hgb Conc 32.5 g/dL (32.0-36.0); Mean Corpuscular Volume 84.9 fL (80.0-100.0); Mean Platelet Volume 9.3 fL (9.4-12.4); Platelet Count 223 K/uL (130-400); RDW Coefficient of Variation 11.9 % (11.5-14.5); RDW Standard Deviation 36.4 fL (36.4-46.3); Red Blood Count 4.03 M/uL (4.63-6.08); White Blood Count 5.37 K/ul (4.8-10.8)
--- NOTE | 2021-11-22 08:23 | Hospitalist Progress Note ---
Date of Service November 22, 2021 Assessment & Plan (1) Osteomyelitis of fifth toe of left foot: Plan: Diabetic foot ulcer with evidence of osteomyelitis - Ulcers have been present for 4-5 years, patient attributes them to back injury several years ago which is disrupted distribution of weight on this foot. He is to follow-up with podiatry, has not seen them in 2 years as symptoms were getting better at that point he did not feel it was necessary. ESR/CRP elevated, Lactic acid 2.4 WBC wnl, procal 0.08 MRI IMPRESSION: * Findings are compatible with osteomyelitis of the fifth metatarsal and proximal phalanx with dislocation and likely septic arthritis of the m etatarsophalangeal joint versus less likely adjacent abscess. Surrounding cellulitis is noted. Ortho consulted POD#1 s/p 1. Left foot subtotal partial resection, fifth metatarsal, due to osteomyelitis. 2. Partial resection of the proximal phalanx, fifth toe, due to osteomyelitis. 3. Evacuation of abscess, plantar lateral left foot. 4. Debridement of ulcer, left foot, 1 x 1 x 1 cm including skin, dermis, fascia, and joint capsule. 5. Tenosynovectomy of septic fifth flexor tendon. with Dr Hagan 11/21. EBL 5mL Abx: Dapto/Zosyn Surface cx gram negative bacilli from 11/18 --> alcaligenes faecalis wound cx from OR pending from abscess around fifth metatarsophalangeal joint extending to plantar ulceration measuring [id number] deep BCx NGTD after 48 hours Wound RN consulted Pain control, antiemetics prn Lovenox SQ for DVT prophylaxis resumed ID consult pending Patient will likely need 6 weeks of IV abx, picc line insertion. Hopefully intraoperative cultures will provide specific data on bacteria so that abx can be tailored. However, possible that by the time cultures are collected, may be sterilized. Continue broad spectrum abx for now. (2) Foot ulcer, left: Plan: as above (3) DM type 2 (diabetes mellitus, type 2): Plan: A1c 6.2, great control, typically on metformin 1gm BID at home, held while inpatient Accu-Cheks ACH S with sliding scale insulin. BSGs acceptable (4) History of sleep apnea: Plan: Elevated RVSP 30 -40 mmHg on Echo in Apr as part od CVA workup (final diagnosis Meniere's dz) - Was evaluated for YUMIKO as outpatient, per patient has resolved with weight loss. (5) Meniere disease: Plan: - Continue meclizine prn.-- has not needed (6) Diabetic foot ulcer with osteomyelitis: Plan: as above (7) Cough: Plan: reported cough 11/20. suspected viral rhinitis with post-nasal drip mucinex 600mg BID added, tessalon pearls prn reported improvement/mucus production, no fever/shortness of breath no cough on exam monitor Plan continued inpatient stay on IV abx monitor cultures, ID consult pending likely need PICC line/6 weeks IV abx, CM to follow Admission and Anticipated Discharge Date Admission Date: November 18, 2021 Supervising Physician Co-Signing Physician Notes KARINA Supervision Note: I did not personally see or examine the patient today, but I verified all prabhakar points of KARINA Rodriguez's assessment and plan with the following exceptions/additions: None Subjective Evaluated this morning, doing well. +BM prior to surgery. Pain controlled. Sensation intact to pressure. Dressing not removed today --> per nursing wound care to coordinate with ortho and obtain pictures. Messaged ortho. Discussed likely IV abx for 6 weeks, patient aware of prior conversation. 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 Discussed awaiting ID consultation and OR cultures still pending, hopefully would be done tomorrow but they are backed up. Asked payroll secretary to check on such. No fever/chills, chest pain, shortness of breath, abdominal pain nausea or vomiting. Questions/concerns addressed at this time. Review of Systems Review of Systems: All systems reviewed & are unremarkable except as noted in HPI & below Physical Exam Physical Exam: General: WD/WN male sitting up in bed, NAD HEENT: head normocephalic, atraumatic, mmm Resp: CTAB, no/w/c/r, 96% on RA CV: RRR, no m/r/g, no pitting edema, no calf tenderness GI: +BS, soft, nontender : no lemus MSK/Neuro/skin: dressing b/l LE , c/d/i LLE with aquacell and kurlex, aubree wrap (not removed) sensation to pressure LLE surrounding cellulitis resolved +b/l neuropathy swelling (reported resolved) Skin: warm, dry Results & Data Results & Data ([facility]) Vital Signs (Past 12 Hours) Vital Signs Temp Pulse Pulse Resp BP BP Pulse Ox 11/22/21 07:04 36.7 C 70 16 116/72 96 11/22/21 03:17 36.6 C 74 16 150/88 H 98 11/21/21 21:00 11/21/21 21:00 11/21/21 23:30 36.6 C 72 16 155/80 H 97 11/21/21 21:35 36.5 C 77 18 117/72 96 11/21/21 21:05 36.4 C L 81 18 142/85 H 97 11/21/21 20:35 36.7 C 79 18 122/79 96 11/21/21 20:20 36.6 C 75 12 115/72 96 Pulse Ox O2 Del Method O2 Del Method 11/22/21 07:04 Room Air 11/22/21 03:17 Room Air 11/21/21 21:00 Room Air 11/21/21 21:00 97 Room Air 11/21/21 23:30 Room Air 11/21/21 21:35 Room Air 11/21/21 21:05 Room Air 11/21/21 20:35 Room Air 11/21/21 20:20 Room Air Laboratory Results 11/22/21 11/22/21 11/22/21 Range/Units 08:16 06:46 06:46 WBC (4.8-10.8) K/ul RBC (4.63-6.08) M/uL Hgb (14.0-18.0) g/dl Hct (40.1-51.0) % MCV (80.0-100.0) fL MCH (25.0-34.0) pg MCHC (32.0-36.0) g/dL RDW Std Deviation (36.4-46.3) fL RDW Coeff of Yareli (11.5-14.5) % Plt Count (130-400) K/uL MPV (9.4-12.4) fL Sodium 138 (136-145) mmol/L Potassium 3.7 (3.5-5.1) mmol/L Chloride 106 (98-107) mmol/L Carbon Dioxide 21 (21-32) mmol/L Anion Gap 11 (3-11) BUN 16 (6-23) mg/dl Creatinine 0.90 (0.6-1.4) mg/dl Est Cr Clr Drug Dosing 87.5 ml/min Est GFR ( Amer) 100.6 ml/min Est GFR (Non-Af Amer) 86.8 ml/min BUN/Creatinine Ratio 17.8 (10-20) Glucose 94 (70-99(Fasting)) mg/dl POC Glucose 92 (70-99) mg/dl Calcium 9.0 (8.5-10.1) mg/dl Magnesium 1.8 (1.7-2.4) mg/dl Vitamin B12 627 (180-914) pg/ml 11/22/21 11/21/21 11/21/21 Range/Units 06:46 20:04 15:42 WBC 5.37 (4.8-10.8) K/ul RBC 4.03 L (4.63-6.08) M/uL Hgb 11.1 L (14.0-18.0) g/dl Hct 34.2 L (40.1-51.0) % MCV 84.9 (80.0-100.0) fL MCH 27.5 (25.0-34.0) pg MCHC 32.5 (32.0-36.0) g/dL RDW Std Deviation 36.4 (36.4-46.3) fL RDW Coeff of Yareli 11.9 (11.5-14.5) % Plt Count 223 (130-400) K/uL MPV 9.3 L (9.4-12.4) fL Sodium (136-145) mmol/L Potassium (3.5-5.1) mmol/L Chloride (98-107) mmol/L Carbon Dioxide (21-32) mmol/L Anion Gap (3-11) BUN (6-23) mg/dl Creatinine (0.6-1.4) mg/dl Est Cr Clr Drug Dosing ml/min Est GFR ( Amer) ml/min Est GFR (Non-Af Amer) ml/min BUN/Creatinine Ratio (10-20) Glucose (70-99(Fasting)) mg/dl POC Glucose 97 100 H (70-99) mg/dl Calcium (8.5-10.1) mg/dl Magnesium (1.7-2.4) mg/dl Vitamin B12 (180-914) pg/ml 11/21/21 Range/Units 12:10 WBC (4.8-10.8) K/ul RBC (4.63-6.08) M/uL Hgb (14.0-18.0) g/dl Hct (40.1-51.0) % MCV (80.0-100.0) fL MCH (25.0-34.0) pg MCHC (32.0-36.0) g/dL RDW Std Deviation (36.4-46.3) fL RDW Coeff of Yareli (11.5-14.5) % Plt Count (130-400) K/uL MPV (9.4-12.4) fL Sodium (136-145) mmol/L Potassium (3.5-5.1) mmol/L Chloride (98-107) mmol/L Carbon Dioxide (21-32) mmol/L Anion Gap (3-11) BUN (6-23) mg/dl Creatinine (0.6-1.4) mg/dl Est Cr Clr Drug Dosing ml/min Est GFR ( Amer) ml/min Est GFR (Non-Af Amer) ml/min BUN/Creatinine Ratio (10-20) Glucose (70-99(Fasting)) mg/dl POC Glucose 106 H (70-99) mg/dl Calcium (8.5-10.1) mg/dl Magnesium (1.7-2.4) mg/dl Vitamin B12 (180-914) pg/ml PG Care Time/CCT Total # of Minutes Spent Total Time Spent with Patient: Total time spent is greater than 50% in coordination of care (as documented) at patient's floor/unit and/or counseling patient: Coding Level of Care Code 95312 Subseq Hosp Care Lvl 3 Diagnoses Osteomyelitis of fifth toe of left foot M86.9 Foot ulcer, left L97.529 DM type 2 (diabetes mellitus, type 2) E11.9 History of sleep apnea Z86.69 Meniere disease H81.09 Diabetic foot ulcer with osteomyelitis E11.621; E11.69; L97.509; M86.9 Cough R05.9
[2021-11-22] MEDS: POLYETHYLENE (MIRALAX) 17 GM PACK PO PRN (08:24)
[2021-11-22] MEDS: guaiFENesin 600 MG TABCR PO SCH ×2 (08:24→20:45)
[2021-11-22 08:28] LABS: BUN Creatinine Ratio 17.8 (10-20); Creatinine Clr Calc Pharmacy 87.5 ml/min; Est GFR (African American) 100.6 ml/min; Est GFR (Non-African American) 86.8 ml/min; Magnesium 1.8 mg/dl (1.7-2.4); Potassium 3.7 mmol/L (3.5-5.1)
[2021-11-22] MEDS: INSULIN ASPART PER UNIT SC SCH ×4 (08:53→21:54)
[2021-11-22] MEDS: ACETAMINOPHEN 500 MG TAB PO PRN (11:12)
[2021-11-22] MEDS: DAPTOmycin 475 MG in SYRINGE 0 ML IV SCH (14:28)
[2021-11-22] MEDS ORDERED: oxyCODONE HCL IR 5 MG TAB (IMMEDIATE RELEASE) PO PRN (15:27)
--- NOTE | 2021-11-22 16:11 | Orthopedic Progress Note ---
Date of Service November 22, 2021 Assessment & Plan (1) Diabetic foot ulcer with osteomyelitis: Plan: Postop day 1 status post 1. Left foot subtotal partial resection, fifth metatarsal, due to osteomyelitis. 2. Partial resection of the proximal phalanx, fifth toe, due to osteomyelitis. 3. Evacuation of abscess, plantar lateral left foot. 4. Debridement of ulcer, left foot, 1 x 1 x 1 cm including skin, dermis, fascia, and joint capsule. 5. Tenosynovectomy of septic fifth flexor tendon. PT/OT. Weightbearing as tolerated on the left heel. Start dressing changes tomorrow with removal of iodoform packing. Continue IV antibiotics. Follow cultures. Pain management as written. Admission and Anticipated Discharge Date Admission Date: November 18, 2021 Subjective Postop day 1 Patient sitting up in bed awake and alert. No overt complaints. States he gets a few jabs of pain now and then but overall he is very comfortable. Physical Exam Physical Exam: Dressings are clean, dry, and intact. Toes are pink and warm. Results & Data ([facility]) Vital Signs (Past 12 Hours) Vital Signs Temp Pulse Resp BP Pulse Ox O2 Del Method 11/22/21 10:51 36.7 C 94 H 16 113/76 95 BiPAP 11/22/21 07:04 36.7 C 70 16 116/72 96 Room Air
[2021-11-22] MEDS: POLYETHYLENE (MIRALAX) 17 GM PACK PO SCH (18:22)
[2021-11-22] MEDS: DOCUSATE SODIUM/SENNA 50/8.6MG TAB PO SCH (18:22)
[2021-11-22] MEDS: oxyCODONE HCL IR 5 MG TAB (IMMEDIATE RELEASE) PO PRN (19:29)
[2021-11-22] MEDS: ENOXAPARIN INJ 40 MG/0.4 ML SYR SQ SCH (20:45)
[2021-11-23] MEDS: PIPERACILLIN/TAZOBACTAM 4.5 GM in DEXTROSE 5% 100 ML IV SCH ×3 (05:02→21:04)
[2021-11-23 06:19] LABS: Hematocrit (blood only) 29.4 % (40.1-51.0); Hemoglobin 10.2 g/dl (14.0-18.0); Mean Corpuscular Hemoglobin 28.5 pg (25.0-34.0); Mean Corpuscular Hgb Conc 34.7 g/dL (32.0-36.0); Mean Corpuscular Volume 82.1 fL (80.0-100.0); Mean Platelet Volume 9.1 fL (9.4-12.4); Platelet Count 215 K/uL (130-400); RDW Coefficient of Variation 11.7 % (11.5-14.5); RDW Standard Deviation 35.1 fL (36.4-46.3); Red Blood Count 3.58 M/uL (4.63-6.08); White Blood Count 5.01 K/ul (4.8-10.8)
[2021-11-23 06:49] LABS: BUN Creatinine Ratio 14.9 (10-20); C Reactive Protein 9.58 mg/dl (0-0.5); Calcium 8.8 mg/dl (8.5-10.1); Creatinine Clr Calc Pharmacy 90.6 ml/min; Est GFR (African American) 102.1 ml/min; Est GFR (Non-African American) 88.1 ml/min; Magnesium 1.9 mg/dl (1.7-2.4); Potassium 3.6 mmol/L (3.5-5.1)
--- NOTE | 2021-11-23 08:23 | Hospitalist Progress Note ---
Date of Service November 23, 2021 Assessment & Plan (1) Osteomyelitis of fifth toe of left foot: Plan: Diabetic foot ulcer with evidence of osteomyelitis - Ulcers have been present for 4-5 years, patient attributes them to back injury several years ago which is disrupted distribution of weight on this foot. He is to follow-up with podiatry, has not seen them in 2 years as symptoms were getting better at that point he did not feel it was necessary. ESR/CRP elevated, Lactic acid 2.4. CRP decreased on repeat WBC wnl, procal 0.08 MRI Findings are compatible with osteomyelitis of the fifth metatarsal and proximal phalanx with dislocation and likely septic arthritis of the metatarsophalangeal joint versus less likely adjacent abscess. Surrounding cellulitis is noted. Ortho consulted POD#2 s/p 1. Left foot subtotal partial resection, fifth metatarsal, due to osteomyelitis. 2. Partial resection of the proximal phalanx, fifth toe, due to osteomyelitis. 3. Evacuation of abscess, plantar lateral left foot. 4. Debridement of ulcer, left foot, 1 x 1 x 1 cm including skin, dermis, fascia, and joint capsule. 5. Tenosynovectomy of septic fifth flexor tendon. with Dr Hagan 11/21. EBL 5mL Abx: Dapto/Zosyn Surface cx from 11/18--> alcaligenes faecalis (pansensitive except to Cipro) ID consult -- can continue current regimen, consider vanco/cefepime/flagyl will reach out once cultures finalized --> discussed with pharmacy ID recs 6-10mg/kg/dose as we have a little on lower end. they will message floor pharmacist and adjust to be in range as we use ideal body weight per hospital protocol wound cx from OR pending from abscess around fifth metatarsophalangeal joint extending to plantar ulceration measuring [id number] deep. Prelim w/ many WBC, moderate gram positive cocci WBC wnl, afebrile BCx remain NGTD -- monitor Wound RN consulted -- dressing change for 11/23 planned Pain control, antiemetics, bowel regimen Added oxycodone 11/22, increased to 1-2 tablets as needed Reported improvement and pain controlled and will continue Lovenox SQ for DVT proph Likely to need IV abx at discharge, however all infected bone reported to have been removed. Can consider 2 week course but will need to monitor cx (2) Foot ulcer, left: Plan: as above (3) DM type 2 (diabetes mellitus, type 2): Plan: A1c 6.2, great control, typically on metformin 1gm BID at home, held while inpatient Accu-Cheks ACH S with sliding scale insulin. BSGs well controlled (4) History of sleep apnea: Plan: Elevated RVSP 30 -40 mmHg on Echo in Apr as part od CVA workup (final diagnosis Meniere's dz) - Was evaluated for YUMIKO as outpatient, per patient has resolved with weight loss. (Noted to be on BiPAP yesterday on vitals, checked with RN --> documented on WRONG PATIENT) (5) Meniere disease: Plan: - Continue meclizine prn.-- has not needed (6) Diabetic foot ulcer with osteomyelitis: Plan: as above (7) Cough: Plan: reported cough 11/20. suspected viral rhinitis with post-nasal drip mucinex 600mg BID added, tessalon pearls prn reported improvement/mucus production, no fever/shortness of breath --> no further sx reported and will continue on mucinex BID no cough on exam monitor Plan continued inpatient stay dressings and packing to be changed today, wound RN on consult monitor OR cx/reach back out to ID once cultures finalized for definitive plan for abx at discharge Admission and Anticipated Discharge Date Admission Date: November 18, 2021 Supervising Physician Co-Signing Physician Notes PA Supervision Note: I did not personally see or examine the patient today, but I verified all prabhakar points of KARINA Rodriguez's assessment and plan with the following exceptions/additions: None Subjective Patient evaluated this morning. Doing well, pain much better controlled. Orthopedics to assist with wound care for dressing change and removal of iodoform packing later today. Passing gas, no BM. Cultures still pending as discussed but I will reach out to ID once finalized. Discussed talked with ortho PA and believe all infected bone removed so hopefully will be able to shorten antibiotic duration to two weeks, consider US guided IV rather than PICC but will monitor. Patient glad to hear this information. No fever/chills, chest pain, shortness of breath, abdominal pain nausea or vomiting. Questions/concerns addressed. Review of Systems Review of Systems: All systems reviewed & are unremarkable except as noted in HPI & below Physical Exam Physical Exam: General: WD/WN male sitting up in bed, talking on the phone NAD HEENT: head normocephalic, atraumatic, mmm Resp: CTAB, no/w/c/r, 97% on RA CV: RRR, no m/r/g, no pitting edema, no calf tenderness GI: +BS, soft, nontender : no lemus MSK/Neuro/skin: dressing b/l LE , c/d/i LLE with aquacell and Kerlix, aubree wrap (not removed) sensation to pressure LLE, toes mobile, warm and perfused surrounding cellulitis resolved scds in place Skin: warm, dry Results & Data Results & Data ([facility]) Vital Signs (Past 12 Hours) Vital Signs Temp Pulse Resp BP Pulse Ox O2 Del Method 11/23/21 07:27 36.6 C 88 16 135/81 97 Room Air 11/22/21 23:28 36.7 C 80 16 126/73 94 Room Air Laboratory Results 11/23/21 11/23/21 11/22/21 Range/Units 05:51 05:51 20:43 WBC 5.01 (4.8-10.8) K/ul RBC 3.58 L (4.63-6.08) M/uL Hgb 10.2 L (14.0-18.0) g/dl Hct 29.4 L (40.1-51.0) % MCV 82.1 (80.0-100.0) fL MCH 28.5 (25.0-34.0) pg MCHC 34.7 (32.0-36.0) g/dL RDW Std Deviation 35.1 L (36.4-46.3) fL RDW Coeff of Yareli 11.7 (11.5-14.5) % Plt Count 215 (130-400) K/uL MPV 9.1 L (9.4-12.4) fL Sodium 137 (136-145) mmol/L Potassium 3.6 (3.5-5.1) mmol/L Chloride 105 (98-107) mmol/L Carbon Dioxide 25 (21-32) mmol/L Anion Gap 7 (3-11) BUN 13 (6-23) mg/dl Creatinine 0.87 (0.6-1.4) mg/dl Est Cr Clr Drug Dosing 90.6 ml/min Est GFR ( Amer) 102.1 ml/min Est GFR (Non-Af Amer) 88.1 ml/min BUN/Creatinine Ratio 14.9 (10-20) Glucose 98 (70-99(Fasting)) mg/dl POC Glucose 108 H (70-99) mg/dl Calcium 8.8 (8.5-10.1) mg/dl Magnesium 1.9 (1.7-2.4) mg/dl C-Reactive Protein 9.58 H (0-0.5) mg/dl Vitamin B12 (180-914) pg/ml 11/22/21 11/22/21 11/22/21 Range/Units 16:57 11:45 06:46 WBC (4.8-10.8) K/ul RBC (4.63-6.08) M/uL Hgb (14.0-18.0) g/dl Hct (40.1-51.0) % MCV (80.0-100.0) fL MCH (25.0-34.0) pg MCHC (32.0-36.0) g/dL RDW Std Deviation (36.4-46.3) fL RDW Coeff of Yareli (11.5-14.5) % Plt Count (130-400) K/uL MPV (9.4-12.4) fL Sodium (136-145) mmol/L Potassium (3.5-5.1) mmol/L Chloride (98-107) mmol/L Carbon Dioxide (21-32) mmol/L Anion Gap (3-11) BUN (6-23) mg/dl Creatinine (0.6-1.4) mg/dl Est Cr Clr Drug Dosing ml/min Est GFR ( Amer) ml/min Est GFR (Non-Af Amer) ml/min BUN/Creatinine Ratio (10-20) Glucose (70-99(Fasting)) mg/dl POC Glucose 135 H 188 H (70-99) mg/dl Calcium (8.5-10.1) mg/dl Magnesium (1.7-2.4) mg/dl C-Reactive Protein (0-0.5) mg/dl Vitamin B12 627 (180-914) pg/ml 09/08/22 Range/Units 06:46 WBC (4.8-10.8) K/ul RBC (4.63-6.08) M/uL Hgb (14.0-18.0) g/dl Hct (40.1-51.0) % MCV (80.0-100.0) fL MCH (25.0-34.0) pg MCHC (32.0-36.0) g/dL RDW Std Deviation (36.4-46.3) fL RDW Coeff of Yareli (11.5-14.5) % Plt Count (130-400) K/uL MPV (9.4-12.4) fL Sodium 138 (136-145) mmol/L Potassium 3.7 (3.5-5.1) mmol/L Chloride 106 (98-107) mmol/L Carbon Dioxide 21 (21-32) mmol/L Anion Gap 11 (3-11) BUN 16 (6-23) mg/dl Creatinine 0.90 (0.6-1.4) mg/dl Est Cr Clr Drug Dosing 87.5 ml/min Est GFR ( Amer) 100.6 ml/min Est GFR (Non-Af Amer) 86.8 ml/min BUN/Creatinine Ratio 17.8 (10-20) Glucose 94 (70-99(Fasting)) mg/dl POC Glucose (70-99) mg/dl Calcium 9.0 (8.5-10.1) mg/dl Magnesium 1.8 (1.7-2.4) mg/dl C-Reactive Protein (0-0.5) mg/dl Vitamin B12 (180-914) pg/ml PG Care Time/CCT Total # of Minutes Spent Total Time Spent with Patient: Total time spent is greater than 50% in coordination of care (as documented) at patient's floor/unit and/or counseling patient: Coding Level of Care Code 61723 Subseq Hosp Care Lvl 3 Diagnoses Osteomyelitis of fifth toe of left foot M86.9 Foot ulcer, left L97.529 DM type 2 (diabetes mellitus, type 2) E11.9 History of sleep apnea Z86.69 Meniere disease H81.09 Diabetic foot ulcer with osteomyelitis E11.621; E11.69; L97.509; M86.9 Cough R05.9
[2021-11-23] MEDS: guaiFENesin 600 MG TABCR PO SCH ×2 (08:43→21:08)
[2021-11-23] MEDS: DOCUSATE SODIUM/SENNA 50/8.6MG TAB PO SCH (08:43)
[2021-11-23] MEDS: INSULIN ASPART PER UNIT SC SCH ×4 (08:45→21:40)
[2021-11-23] MEDS: POLYETHYLENE (MIRALAX) 17 GM PACK PO SCH (08:45)
--- NOTE | 2021-11-23 10:34 | Orthopedic Progress Note ---
Date of Service November 23, 2021 Assessment & Plan (1) Diabetic foot ulcer with osteomyelitis: Plan: Postop day 1 status post 1. Left foot subtotal partial resection, fifth metatarsal, due to osteomyelitis. 2. Partial resection of the proximal phalanx, fifth toe, due to osteomyelitis. 3. Evacuation of abscess, plantar lateral left foot. 4. Debridement of ulcer, left foot, 1 x 1 x 1 cm including skin, dermis, fascia, and joint capsule. 5. Tenosynovectomy of septic fifth flexor tendon. PT/OT. Weightbearing as tolerated on the left heel. Daily dressing changes Continue IV antibiotics. Follow cultures. Pain management as written. Admission and Anticipated Discharge Date Admission Date: November 18, 2021 Subjective Postoperative day 2 Patient sitting up in bed awake and alert. No complaints this morning. Pain is controlled. Patient with questions about discharge status. Discussed the needs to continue to follow cultures and choosing the correct antibiotic. Patient has been seen by infectious disease team. Awaiting OR cultures finalization. Physical Exam Physical Exam: Patient seen with Alison Padilla RN from the wound care team was nursing staff caring for the patient. Dressings have been removed from the left foot. Incision is well approximated. Mild erythema noted around the incision itself. Iodoform gauze packing removed from the distal portion of the wound. No overt drainage. No purulence noted. Small amount of Aquacel Ag was placed back in the wound where iodoform gauze had been placed. Remainder of wound covered with Adaptic and 4 x 4's as well as Kerlix. Results & Data ([facility]) Vital Signs (Past 12 Hours) Vital Signs Temp Pulse Resp BP Pulse Ox O2 Del Method 11/23/21 07:27 36.6 C 88 16 135/81 97 Room Air 11/22/21 23:28 36.7 C 80 16 126/73 94 Room Air
[2021-11-23] MEDS: DAPTOmycin 700 MG in SYRINGE 0 ML IV SCH (11:07)
[2021-11-23] MEDS: oxyCODONE HCL IR 5 MG TAB (IMMEDIATE RELEASE) PO PRN (21:06)
[2021-11-23] MEDS: ENOXAPARIN INJ 40 MG/0.4 ML SYR SQ SCH (21:07)
[2021-11-24] MEDS: PIPERACILLIN/TAZOBACTAM 4.5 GM in DEXTROSE 5% 100 ML IV SCH ×3 (04:54→20:22)
[2021-11-24 08:05] LABS: Hematocrit (blood only) 34.4 % (40.1-51.0); Hemoglobin 11.6 g/dl (14.0-18.0); Mean Corpuscular Hgb Conc 33.7 g/dL (32.0-36.0); Mean Corpuscular Volume 83.1 fL (80.0-100.0); Platelet Count 273 K/uL (130-400); RDW Coefficient of Variation 11.9 % (11.5-14.5); RDW Standard Deviation 36.4 fL (36.4-46.3); Red Blood Count 4.14 M/uL (4.63-6.08); White Blood Count 4.08 K/ul (4.8-10.8)
[2021-11-24 08:39] LABS: BUN Creatinine Ratio 13.9 (10-20); Calcium 9.6 mg/dl (8.5-10.1); Est GFR (African American) 87.6 ml/min; Est GFR (Non-African American) 75.5 ml/min; Magnesium 2.1 mg/dl (1.7-2.4); Potassium 3.8 mmol/L (3.5-5.1)
[2021-11-24] MEDS: guaiFENesin 600 MG TABCR PO SCH ×2 (09:21→20:25)
[2021-11-24] MEDS: DOCUSATE SODIUM/SENNA 50/8.6MG TAB PO SCH (09:22)
[2021-11-24] MEDS: POLYETHYLENE (MIRALAX) 17 GM PACK PO SCH (09:22)
[2021-11-24] MEDS: INSULIN ASPART PER UNIT SC SCH ×4 (09:24→20:43)
[2021-11-24] MEDS: DAPTOmycin 700 MG in SYRINGE 0 ML IV SCH (09:34)
--- NOTE | 2021-11-24 11:07 | Orthopedic Progress Note ---
Date of Service November 24, 2021 Assessment & Plan (1) Diabetic foot ulcer with osteomyelitis: Plan: Postop day 3 status post 1. Left foot subtotal partial resection, fifth metatarsal, due to osteomyelitis. 2. Partial resection of the proximal phalanx, fifth toe, due to osteomyelitis. 3. Evacuation of abscess, plantar lateral left foot. 4. Debridement of ulcer, left foot, 1 x 1 x 1 cm including skin, dermis, fascia, and joint capsule. 5. Tenosynovectomy of septic fifth flexor tendon. PT/OT. Weightbearing as tolerated on the left heel. Daily dressing changes Continue IV antibiotics. Follow cultures. Anaerobic gram-negative axillae showing up on his operative wound culture. Pain management as written. Orthopedics will sign off at this time. Continue above-noted daily dressing changes. Instructions placed in the chart. Call with any questions. Admission and Anticipated Discharge Date Admission Date: November 18, 2021 Subjective Postop day 3 Patient lying in bed awake and alert. No complaints today. Physical Exam Physical Exam: Dressings removed with nursing staff. Mild drainage noted no purulence. Minimal erythema around the wound itself. The suture line is well approximated. Small hole with packing in which the Aquacel Ag is removed. No obvious purulence no foul odor. Small piece of Aquacel Ag was placed back into the open wound. Final dressing was Adaptic, 4 x 4's and a Kerlix wrap. Results & Data ([facility]) Vital Signs (Past 12 Hours) Vital Signs Temp Pulse Resp BP BP Pulse Ox O2 Del Method 11/24/21 07:52 36.5 C 80 14 127/80 96 Room Air 11/23/21 23:13 36.8 C 71 18 117/72 96
--- NOTE | 2021-11-24 17:26 | Hospitalist Progress Note ---
Date of Service November 24, 2021 Assessment & Plan (1) Osteomyelitis of fifth toe of left foot: Plan: Diabetic foot ulcer with evidence of osteomyelitis on the left - Ulcers have been present for 4-5 years, patient attributes them to back injury several years ago which is disrupted distribution of weight on this foot. He is to follow-up with podiatry, has not seen them in 2 years as symptoms were getting better at that point he did not feel it was necessary. ESR/CRP elevated, Lactic acid 2.4. CRP decreased on repeat WBC wnl, procal 0.08 MRI Findings are compatible with osteomyelitis of the fifth metatarsal and proximal phalanx with dislocation and likely septic arthritis of the metatarsophalangeal joint versus less likely adjacent abscess. Surrounding cellulitis is noted. Ortho consulted-now s/p: 1. Left foot subtotal partial resection, fifth metatarsal, due to osteomyelitis. 2. Partial resection of the proximal phalanx, fifth toe, due to osteomyelitis. 3. Evacuation of abscess, plantar lateral left foot. 4. Debridement of ulcer, left foot, 1 x 1 x 1 cm including skin, dermis, fascia, and joint capsule. 5. Tenosynovectomy of septic fifth flexor tendon. with Dr Hagan 11/21. EBL 5mL Surface cx from 11/18--> alcaligenes faecalis (pansensitive except to Cipro) wound cx from OR now with Bacteroides fragilis -Has been on IV Zosyn and daptomycin throughout his stay for 6 days -Blood cultures remain no growth to date -Appreciate ID consult-recommends 2 weeks of antibiotics as long as infection/osteomyelitis is resolved-orthopedics thinks the osteomyelitis was surgically resected -He is doing well, afebrile, no leukocytosis. -Doing daily dressing changes as per orthopedic surgery -Acetaminophen for mild to moderate pain, oxycodone for moderate to severe pain -Plan to discharge home tomorrow on p.o. levofloxacin and Augmentin for a total of 2 weeks from the time of surgery on 11/21-end date of therapy 12/05 (2) Foot ulcer, left: Plan: as above, also with plantar ulcers of the right foot not infected (3) DM type 2 (diabetes mellitus, type 2): Plan: A1c 6.2, great control, typically on metformin 1gm BID at home, held while inpatient Accu-Cheks ACH S with sliding scale insulin. BSGs well controlled (4) History of sleep apnea: Plan: Elevated RVSP 30 -40 mmHg on Echo in Apr as part od CVA workup (final diagnosis Meniere's dz) - Was evaluated for YUMIKO as outpatient, per patient has resolved with weight loss. (5) Meniere disease: Plan: - Continue meclizine prn.-- has not needed (6) Diabetic foot ulcer with osteomyelitis: Plan: as above Plan DVT prophylaxis-Lovenox Disposition-plan to discharge to home tomorrow after dressing change. Case management is arranging home health Admission and Anticipated Discharge Date Admission Date: November 18, 2021 Subjective Patient reports feeling well. Has occasional twinges of pain into the feet. He is anxious to be discharged. Final wound cultures came back in the evening on 11/24 and I believe he will be able to go home with oral antibiotics. Denies chest pains or shortness of breath, no nausea or abdominal pain. He is moving his bowels and eating well. Review of Systems Review of Systems: All systems reviewed & are unremarkable except as noted in HPI & below Physical Exam Constitutional: WD/WN, vitals as above Eyes: + anicteric sclerae Neck: trachea midline, no thyromegaly Respiratory: normal respiratory effort, lungs clear to auscultation Cardiovascular: RRR, no murmur, no edema Chest (Breasts): Chest: normal inspection of chest Gastrointestinal (Abdomen): normal bowel sounds, soft, nontender, no hepatosplenomegaly Musculoskeletal: Extremities: + extremities abnormal to inspection (Bilateral feet wrapped in Kerlix not removed), no cyanosis and no clubbing Skin: no rashes, warm and dry Neurologic: moves all extremities and awake; no focal motor deficits Psychiatric: A+Ox3, euthymic affect Lymphatic: no lymphedema Results & Data Results & Data ([facility]) Vital Signs (Past 12 Hours) Vital Signs Temp Pulse Resp BP Pulse Ox O2 Del Method 11/24/21 15:17 36.7 C 83 14 132/76 95 Room Air 11/24/21 07:52 36.5 C 80 14 127/80 96 Room Air Laboratory Results 11/24/21 11/24/21 11/24/21 Range/Units 17:00 12:06 07:52 WBC (4.8-10.8) K/ul RBC (4.63-6.08) M/uL Hgb (14.0-18.0) g/dl Hct (40.1-51.0) % MCV (80.0-100.0) fL MCH (25.0-34.0) pg MCHC (32.0-36.0) g/dL RDW Std Deviation (36.4-46.3) fL RDW Coeff of Yareli (11.5-14.5) % Plt Count (130-400) K/uL MPV (9.4-12.4) fL Sodium (136-145) mmol/L Potassium (3.5-5.1) mmol/L Chloride (98-107) mmol/L Carbon Dioxide (21-32) mmol/L Anion Gap (3-11) BUN (6-23) mg/dl Creatinine (0.6-1.4) mg/dl Est Cr Clr Drug Dosing ml/min Est GFR ( Amer) ml/min Est GFR (Non-Af Amer) ml/min BUN/Creatinine Ratio (10-20) Glucose (70-99(Fasting)) mg/dl POC Glucose 229 H 114 H 93 (70-99) mg/dl Calcium (8.5-10.1) mg/dl Magnesium (1.7-2.4) mg/dl 11/24/21 11/24/21 11/23/21 Range/Units 07:35 07:35 20:55 WBC 4.08 L (4.8-10.8) K/ul RBC 4.14 L (4.63-6.08) M/uL Hgb 11.6 L (14.0-18.0) g/dl Hct 34.4 L (40.1-51.0) % MCV 83.1 (80.0-100.0) fL MCH 28.0 (25.0-34.0) pg MCHC 33.7 (32.0-36.0) g/dL RDW Std Deviation 36.4 (36.4-46.3) fL RDW Coeff of Yareli 11.9 (11.5-14.5) % Plt Count 273 (130-400) K/uL MPV 9.0 L (9.4-12.4) fL Sodium 139 (136-145) mmol/L Potassium 3.8 (3.5-5.1) mmol/L Chloride 105 (98-107) mmol/L Carbon Dioxide 27 (21-32) mmol/L Anion Gap 7 (3-11) BUN 14 (6-23) mg/dl Creatinine 1.01 (0.6-1.4) mg/dl Est Cr Clr Drug Dosing 78.0 ml/min Est GFR ( Amer) 87.6 ml/min Est GFR (Non-Af Amer) 75.5 ml/min BUN/Creatinine Ratio 13.9 (10-20) Glucose 103 H (70-99(Fasting)) mg/dl POC Glucose 117 H (70-99) mg/dl Calcium 9.6 (8.5-10.1) mg/dl Magnesium 2.1 (1.7-2.4) mg/dl PG Care Time/CCT Total # of Minutes Spent Total Time Spent with Patient: Total time spent is greater than 50% in coordination of care (as documented) at patient's floor/unit and/or counseling patient: Coding Level of Care Code 45285 Subseq Hosp Care Lvl 2 Diagnoses Osteomyelitis of fifth toe of left foot M86.9 Foot ulcer, left L97.529 DM type 2 (diabetes mellitus, type 2) E11.9 History of sleep apnea Z86.69 Meniere disease H81.09 Diabetic foot ulcer with osteomyelitis E11.621; E11.69; L97.509; M86.9
[2021-11-24] MEDS: ENOXAPARIN INJ 40 MG/0.4 ML SYR SQ SCH (20:25)
[2021-11-24] MEDS: oxyCODONE HCL IR 5 MG TAB (IMMEDIATE RELEASE) PO PRN (20:31)
[2021-11-25] MEDS: PIPERACILLIN/TAZOBACTAM 4.5 GM in DEXTROSE 5% 100 ML IV SCH (05:55)
[2021-11-25] MEDS: guaiFENesin 600 MG TABCR PO SCH (09:34)
[2021-11-25] MEDS: POLYETHYLENE (MIRALAX) 17 GM PACK PO SCH (09:35)
[2021-11-25] MEDS: DOCUSATE SODIUM/SENNA 50/8.6MG TAB PO SCH (09:35)
[2021-11-25] MEDS: INSULIN ASPART PER UNIT SC SCH ×2 (09:38→12:55)
[2021-11-25] MEDS: DAPTOmycin 700 MG in SYRINGE 0 ML IV SCH (10:22)
--- NOTE | 2021-11-25 11:01 | Discharge Summary ---
Date of Service November 25, 2021 Admission HPI Per Admitting Provider Jd Paz is a 71-year-old male with past medical history significant for DM2, BPH, hypertension, idiopathic neuropathy, Meniere's disease, sleep apnea who presents today with left foot pain. He has a history of ulcers on his foot which he relates to rupturing a disc many years ago, causing him unequal distribution of weight on his lower feet, however has not seen podiatry in over 2 years. Over the past week he noticed more pain in his left foot, developing redness around and Friday and with some weeping from the wound at the base of his left pinky toe. He and his have been trying to wrap his feet at home apply ointments to them, however they continue to get worse despite this so they present today for further evaluation. 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 He states that he does have feeling in his feet, does not recall stepping on anything or injuring his foot in any way. Other than pain and discharge at the left foot, he is not complaining of any fever chills, body aches, nausea, vomiting, abdominal pain. No shortness of breath, palpitations, or unilateral leg swelling, calf pain. Upon presentation to ED, he was tachycardic HR 110s, moderately hypertensive 143/88, otherwise afebrile, SPO2 > 95% on RA. Lab significant for elevated ESR 48, CRP 13.10, lactate 2.4, glucose 227. Creatinine is mildly bumped at 1.19, baseline seems to be 0.91.10. Hgb 12.2. No electrolyte abnormalities. Procalcitonin 0.08. COVID-negative. Left foot XR shows fifth metatarsophalangeal joint dislocation without evidence of underlying fracture, there is soft tissue swelling also in the soft MTP joint region without focal osteopenia distress evaluation. Blood and wound cultures collected. Patient received 2.5L NS IVF, started on daptomycin and Zosyn in ED. Principal Diagnosis Left metatarsal osteomyelitis, diabetic foot ulcer Discharge Exam Constitutional WD/WN, vitals as above Eyes + anicteric sclerae Neck trachea midline, no thyromegaly Respiratory normal respiratory effort, lungs clear to auscultation Cardiovascular RRR, no murmur, no edema Chest (Breasts) Chest: normal inspection of chest Gastrointestinal (Abdomen) normal bowel sounds, soft, nontender, no hepatosplenomegaly Musculoskeletal Extremities: + extremities abnormal to inspection (Bilateral feet wrapped in Kerlix not removed), no cyanosis and no clubbing Skin no rashes, warm and dry Neurologic moves all extremities and awake; no focal motor deficits Psychiatric A+Ox3, euthymic affect Lymphatic no lymphedema Discharge Data Allergies Allergy/AdvReac Type Severity Reaction Status Date / Time No Known Allergies Allergy Verified 11/18/21 16:01 Consultations 11/18/21 15:35 ED Decision to Admit Stat 11/19/21 08:12 Consult Orthopedic Surgery Routine 11/19/21 13:00 Consult Orthopedic Surgery Routine 11/20/21 14:14 Consult Infectious Diseases Routine Procedures Performed Operation Date: 11/21/21 08:20 Actual Procedures p Left foot resection 5th Metatarsal, Evacuation abscess, Debridement ulcer(Left) - Kishor Stallworth DO Ordered Studies 11/18/21 16:12 MRI Foot [MR foot LT wo/w con] Urgent Hospital Course (1) Osteomyelitis of fifth toe of left foot: Diabetic foot ulcer with evidence of osteomyelitis on the left - Ulcers have been present for 4-5 years, patient attributes them to back injury several years ago which is disrupted distribution of weight on this foot. He is to follow-up with podiatry, has not seen them in 2 years as symptoms were getting better at that point he did not feel it was necessary. ESR/CRP elevated, Lactic acid 2.4. CRP decreased on repeat WBC wnl, procal 0.08 MRI Findings are compatible with osteomyelitis of the fifth metatarsal and proximal phalanx with dislocation and likely septic arthritis of the metatarsophalangeal joint versus less likely adjacent abscess. Surrounding cellulitis is noted. Ortho consulted-now s/p: 1. Left foot subtotal partial resection, fifth metatarsal, due to osteomyelitis. 2. Partial resection of the proximal phalanx, fifth toe, due to osteomyelitis. 3. Evacuation of abscess, plantar lateral left foot. 4. Debridement of ulcer, left foot, 1 x 1 x 1 cm including skin, dermis, fascia, and joint capsule. 5. Tenosynovectomy of septic fifth flexor tendon. with Dr Stallworth 11/21. EBL 5mL Surface cx from 11/18--> alcaligenes faecalis (pansensitive except to Cipro) wound cx from OR now with Bacteroides fragilis and mixed skin cynthia -Has been on IV Zosyn and daptomycin throughout his stay for 7 days -Blood cultures remain no growth to date -Appreciate ID consult-recommends 2 weeks of antibiotics as long as infection/osteomyelitis is resolved-orthopedics thinks the osteomyelitis was surgically resected -He is doing well, afebrile, no leukocytosis. -Doing daily dressing changes as per orthopedic surgery and recommends follow-up with wound care center within 2 weeks -Acetaminophen for mild to moderate pain, oxycodone for moderate to severe pain -Plan to discharge home today on p.o. levofloxacin and Augmentin for a total of 2 weeks from the time of surgery on 11/21-end date of therapy 12/05 (2) Foot ulcer, left: as above, also with plantar ulcers of the right foot not infected (3) DM type 2 (diabetes mellitus, type 2): A1c 6.2, great control, typically on metformin 1gm BID at home, held while inpatient Accu-Cheks ACHS with sliding scale insulin. BSGs well controlled Restart home metformin on discharge (4) History of sleep apnea: Elevated RVSP 30 -40 mmHg on Echo in Apr as part od CVA workup (final diagnosis Meniere's dz) - Was evaluated for YUMIKO as outpatient, per patient has resolved with weight loss. (5) Meniere disease: - Continue meclizine prn.-- has not needed (6) Diabetic foot ulcer with osteomyelitis: as above Plan DVT prophylaxis-Lovenox Disposition-plan to discharge to home today with home health Total Time Total Time Spent Total Time Spent (In Minutes): 35 minutes Discharge Plan Discharge Items Patient Disposition: Home - Home Health Services Reason For Visit: DIABETIC FOOT ULCER Discharge Diagnosis: Diabetic foot ulcer,abscess, osteomyelitis Activity: As commented below Weightbearing Comment: Heel weightbearing only on the left foot Non-emergency contact: Primary Care Provider and Surgeon Call non-emergency contact if: you have any medication questions, your symptoms worsen, your pain is not controlled, your pain is worsening, your temperature is above 101.5, your wound has increased redness and your wound has increased drainage Follow-up/Referrals: Trinity Dinero MD [Primary Care Provider] - (Follow-up within 1-2 weeks) Kishor Stallworth DO [Surgeon] - (Follow-up with Dr. Stallworth in 10 to 14 days from the day of your surgery for your first postoperative wound check.) Diet: Carb Consistent or DM2 Addtl Attending Provider Instructions: Please continue on the 2 oral antibiotics called Augmentin (amoxicillin/clavulanate) and levofloxacin until the courses are completed. Your primary care physician should perform blood work in 1 week to include a CBC, CRP, ESR, and basic metabolic panel. Addtl Supervisor [employer]ary Service Provider Instructions: ACTIVITY RECOMMENDATIONS: Limitations: Heel weight bearing only if able to tolerate. WHERE A CAST SHOE ON THE LEFT FOOT TO PROTECT THE DRESSING WHILE UP AND AMBULATING. SPECIAL CARE INSTRUCTIONS: * Some drainage onto the dressing is normal and is no cause for alarm. * Some swelling is natural especially after walking. * When resting, keep your foot elevated above the level of your heart. * Call [facility] if you notice: -Increased drainage -Fever over 101 degrees F -Severe constant pain BANDAGE: * DAILY DRESSING CHANGES ON THE LEFT FOOT. USE ADAPTIC NONSTICK GAUZE, 4X4 GAUZE, KERLIX WRAP, AND LOOSE NASREEN WRAP. AQUACEL AG; SMALL PIECE CUT WITH STERILE SCISSORS TO BE PLACED IN OPEN WOUND SECTION FOR THE NEXT 3 DAYS, THEN STOP. * Keep bandage/cast dry at all times. PIN CARE: * Leave pins alone. * If pins come loose or fall out, notify physician. FOLLOW UP VISIT WITH DR. STALLWORTH If appointment is not already scheduled: Please call [facility] after you get home today to schedule a follow-up appointment for 10-[address] Stallworth at . FOLLOW UP WITH WOUND CARE TEAM IN [facility] IN THE NEXT 10-14 DAYS TO REVIEW BOTH FEET. Pending Studies at Discharge: No Stand-Alone Forms: [employer], Smoking Cessation Medications and DC Order Prescriptions: New acetaminophen [Tylenol Extra Strength] 500 mg Tablet 1,000 mg PO Q6H PRN (Reason: pain) Qty: 30 0RF Rx Instructions: [id number] oxycodone 5 mg Tablet 5 mg PO Q4H PRN (Reason: Moderate-severe pain) Qty: 10 0RF amoxicillin-pot clavulanate 875-125 mg tablet 1 tab PO BID Qty: 20 0RF levofloxacin 500 mg tablet 500 mg PO DAILY 10 Days Qty: 10 0RF Continued (DME) blood-glucose meter [OneTouch Ultra2 Meter] [facility] See Rx Instructions .Route Qty: 1 0RF Rx Instructions: As directed (DME) lancets [OneTouch Delica Lancets] 33 gauge misc See Rx Instructions .Route Qty: 100 0RF Rx Instructions: As directed (DME) OneTouch Ultra Test Strip See Rx Instructions .Route Qty: 100 0RF Rx Instructions: testing twice a day or as directed by MD. metformin 1,000 mg tablet 1,000 mg PO BID Qty: 60 5RF sildenafil 100 mg tablet 100 mg PO DAILY PRN (Reason: sexual activity) Qty: 30 5RF Rx Instructions: administer 30 minutes to 4 hours before activity multivitamin Tablet 1 tab PO QAM Excedrin Tension Headache 500-65 mg Tablet 1 tab PO DIRECTED PRN (Reason: HEADACHES) meclizine 25 mg tablet 25 mg PO TID PRN (Reason: Dizziness) Discharge Orders: Discharge Order (Routine); Ordered 11/25/21 Ordered By: Alesha Erazo/Other Patient Handouts: Nutrition for Wound Healing, High Blood Sugar (Hyperglycemia), Hypoglycemia (Low Blood Sugar), Managing Type 2 Diabetes Admission Data Admit Date/Time: 11/18/21 16:37 Attending Provider: Alesha Carl Admit Provider: Santiago Bhatti Primary Care Provider: Trinity Dinero Other Providers: Santiago Bhatti ; Jasmeet Jose ; Yareli Samuel ; Rakesh Robison ; Hanane Shukla ; Jean Ramos ; Andie Balderas ; Leigh Trivedi N ; Anupam [place] ; Jose Oneal ; Bj Setele ; Bj Kemp ; Kishor Stallworth ; Wilfrid [place] ; Merle Hanson ; Rainer [place] I. ; Alex Mccrary II ; Jacqueline Ortiz ; Sincere Morales ; Jd Lyons ; [facility] Coding Level of Care Code D/C DAY MANAGEMENT >30 MINS Diagnoses Osteomyelitis of fifth toe of left foot M86.9 Foot ulcer, left L97.529 DM type 2 (diabetes mellitus, type 2) E11.9 History of sleep apnea Z86.69 Meniere disease H81.09 Diabetic foot ulcer with osteomyelitis E11.621; E11.69; L97.509; M86.9
== END 2021-11-25 14:23 | disposition home health service (06) | DRG 617 ==
LOC: ED 13:28 → SUATTDRO 16:37 → 3E 16:37